=== PATIENT | male | born 1990 | race Two or more races ===

== ENCOUNTER 2021-03-29 14:31 | Emergency (ER) | payer MEDICAID, SELFPAY | END 2021-03-29 16:17 | disposition left against medical advice (07) | PROVIDERS: Emergency Provider Emergency Medicine | DX: M54.50 Low back pain, unspecified (principal) ==

== ENCOUNTER 2021-04-27 00:49 | Emergency (ER) | payer MEDICAID, SELFPAY ==
--- NOTE | ~2021-04-27 | CT_ITS ---
EXAMINATION: CT ABDOMEN AND PELVIS WITH CONTRAST CLINICAL INFORMATION: Right flank pain. History of intravenous drug use COMPARISON: 07/08/2018 TECHNIQUE: Multidetector volumetric images were obtained from the superior aspect of the liver through the pubic symphysis following administration 85 mL of Omnipaque 350 intravenous contrast. Sagittal and coronal reformatted images were obtained on the technologist's workstation. Oral contrast: No This CT examination was performed using dose optimization techniques as appropriate, variously including the following: *Automated exposure control *Adjustment of mA and/or kV according to patient size (this includes techniques or standardized protocols for targeted exams where dose is matched to indication/reason for exam; i.e. extremities or head) *Use of iterative reconstruction technique DLP: 318 mGy-cm FINDINGS: LUNG BASES: The visualized lung bases are unremarkable. LIVER, GALLBLADDER, AND BILIARY TREE: The liver is normal in size, shape, and attenuation. No focal hepatic lesion or biliary ductal dilatation is present. The gallbladder is unremarkable with no evidence of radiopaque gallstones, gallbladder wall thickening, or obvious pericholecystic inflammatory changes. PANCREAS: Unremarkable. SPLEEN: Unremarkable. ADRENAL GLANDS: Unremarkable. KIDNEYS AND URETERS: The kidneys are normal in size, shape, and attenuation. No hydronephrosis, hydroureter, or calculi seen. No perinephric stranding. BLADDER: Unremarkable. GASTROINTESTINAL TRACT: The small and large bowel are unremarkable. The appendix is unremarkable. ABDOMINAL WALL: No significant hernia is appreciated. LYMPH NODES: Normal. VASCULAR: Unremarkable. PELVIC VISCERA: Unremarkable. OSSEOUS STRUCTURES: Unremarkable. CT/CT abdomen pelvis w con IMPRESSION: No acute findings within the abdomen or pelvis. Normal exam.
[2021-04-27 01:03] VITALS: BP 117/68; PULSE 77; RESP 16; TEMP 36.1; O2SAT 97; BMI 21.2
--- NOTE | 2021-04-27 01:08 | ED_ITS ---
HPI - Back Pain/Injury General Chief Complaint: Back Pain/Injury Stated Complaint: back pain Time Seen by Provider: 04/27/21 01:03 Source: patient Mode of arrival: ambulatory Limitations: no limitations History of Present Illness HPI Narrative: Patient with history of IV drug use noticed low back pain after bending down 2 weeks ago radiating to the right leg no fever no chills no nausea no vomiting Related Data Allergies Allergy/AdvReac Type Severity Reaction Status Date / Time No Known Allergies Allergy Unverified 11/22/19 16:35 [No Known Allergies*] Review of Systems Review of Systems: Yes all other systems are reviewed and are negative [facility] Past Medical History Medical History Seizures Social History Social History Advance Directives: No Physical Exam Vital Signs: Vital Signs: Last Vital Signs Temp 97 F 04/27/21 01:03 Pulse 77 04/27/21 01:03 Resp 16 04/27/21 01:03 BP 117/68 04/27/21 01:03 Pulse Ox 97 04/27/21 01:03 BMI result Body Mass Index 21.2 Appearance: Alert. Oriented X3. No acute distress. Eyes: No pallor or icterus ENT: Pharynx normal. Oral Mucosa moist Neck: Normal inspection. Neck supple. CVS: Normal heart rate and rhythm. Pulses normal. Respiratory: No respiratory distress. Equal air entry bilateral, no wheezing/rales/rhonchi Abdomen: Soft and nontender. Bowel sounds are present, no mass palpable, no CVA tenderness Skin: Skin warm and dry. Normal skin color. Normal skin turgor. back: Diffuse right paraspinal tenderness L1-L2 no focal midline tenderness no skin change sensation over the sacrum intact Extremities: No lower extremity edema. No calf tenderness SLR positive right leg at 60 degrees Neuro: Oriented X 3. No motor deficit. No sensory deficit.No cerebellar signs , cranial nerves II-XII intact MDM - Back Pain/Injury MDM Narrative Medical decision making narrative: Patient with back pain with history of IVDA use clinically muscular pain with because of IVDA will check the CRP and sed rate WBC count is normal also will do the CT scan with IV contrast to rule out any mass or fluid collection/epidural abscess at this time no signs of radiculopathy Lab Data Attestation: I reviewed the patient's lab results. Result diagrams: 04/27/21 01:04/27/21 01: Labs: Lab Results 04/27/21 04/27/21 04/27/21 Range/Units 01: 01: 01:22 WBC 6.3 (4.8-10.8) X10*3/uL RBC 4.32 L (4.60-5.80) X10*6/uL Hgb 13.0 L (14.0-18.0) g/dl Hct 39.2 L (42.0-52.0) % MCV 90.7 (80.0-98.0) fL MCH 30.1 (27.0-33.0) pg MCHC 33.2 (31.0-36.0) g/dl RDW 12.5 (11.0-16.0) % Plt Count 258 (160-400) X10*3/uL MPV 9.1 L (9.4-12.4) fL Immature Gran % (Auto) 0.5 H (0.0-0.4) % Neut % (Auto) 58.7 (45-73) % Lymph % (Auto) 32.1 (20-40) % [place] % (Auto) 6.8 (2-11) % Eos % (Auto) 1.4 (0-4) % Baso % (Auto) 0.5 (0-2) % Lymph # (Auto) 2.0 (1.2-4.9) X10*3/uL [place] # (Auto) 0.4 (0.1-1.2) X10*3/uL Eos # (Auto) 0.1 (0.0-0.4) X10*3/uL Baso # (Auto) 0.0 (0.0-0.2) X10*3/uL Abs Immat Gran (auto) 0.03 (0.00-0.03) X10*3/uL Absolute Neuts (auto) 3.7 (2.0-8.3) x10*3/uL Absolute Nucleated RBC 0.000 (0.0-0.012) X10*3/uL Nucleated RBC % (auto) 0.0 (0.0-0.2) /100WBC Sodium (135-145) mmol/L Potassium (3.3-5.1) mmol/L Chloride (96-108) mmol/L Carbon Dioxide (22-29) mmol/L Anion Gap (12-20) BUN (9-16) mg/dL Creatinine (0.5-1.4) mg/dL Estim Creat Clear Calc Estimated GFR Random Glucose (60-115) mg/dL Lactic Acid 0.8 (0.5-2.0) mmol/L Calcium (8.4-10.2) mg/dL Total Bilirubin (0.0-1.0) mg/dL AST (5-37) U/L ALT (0-40) U/L Alkaline Phosphatase (39-117) U/L C-Reactive Protein (< or = 0.50) mg/dL Total Protein (6.5-8.0) g/dL Albumin (3.5-5.0) g/dL COVID-19 (GILDA) Positive A (Negative) COVID-19 Clin Com See Note 04/27/21 Range/Units 01:22 WBC (4.8-10.8) X10*3/uL RBC (4.60-5.80) X10*6/uL Hgb (14.0-18.0) g/dl Hct (42.0-52.0) % MCV (80.0-98.0) fL MCH (27.0-33.0) pg MCHC (31.0-36.0) g/dl RDW (11.0-16.0) % Plt Count (160-400) X10*3/uL MPV (9.4-12.4) fL Immature Gran % (Auto) (0.0-0.4) % Neut % (Auto) (45-73) % Lymph % (Auto) (20-40) % [place] % (Auto) (2-11) % Eos % (Auto) (0-4) % Baso % (Auto) (0-2) % Lymph # (Auto) (1.2-4.9) X10*3/uL [place] # (Auto) (0.1-1.2) X10*3/uL Eos # (Auto) (0.0-0.4) X10*3/uL Baso # (Auto) (0.0-0.2) X10*3/uL Abs Immat Gran (auto) (0.00-0.03) X10*3/uL Absolute Neuts (auto) (2.0-8.3) x10*3/uL Absolute Nucleated RBC (0.0-0.012) X10*3/uL Nucleated RBC % (auto) (0.0-0.2) /100WBC Sodium 134 L (135-145) mmol/L Potassium 4.4 (3.3-5.1) mmol/L Chloride 97 (96-108) mmol/L Carbon Dioxide 27 (22-29) mmol/L Anion Gap 14 (12-20) BUN 14 (9-16) mg/dL Creatinine 0.84 (0.5-1.4) mg/dL Estim Creat Clear Calc 103.5 Estimated GFR > 60 Random Glucose 96 (60-115) mg/dL Lactic Acid (0.5-2.0) mmol/L Calcium 9.7 (8.4-10.2) mg/dL Total Bilirubin 0.5 (0.0-1.0) mg/dL AST 68 H (5-37) U/L ALT 60 H (0-40) U/L Alkaline Phosphatase 84 (39-117) U/L C-Reactive Protein 0.86 H (< or = 0.50) mg/dL Total Protein 8.4 H (6.5-8.0) g/dL Albumin 3.8 (3.5-5.0) g/dL COVID-19 (GILDA) (Negative) COVID-19 Clin Com Discharge Plan Discharge Clinical Impression: Back pain Patient Disposition: Still a Patient
[2021-04-27] MEDS: Ketorolac Tromethamine 30 MG/ML VIAL IVPUSH (01:20)
[2021-04-27] MEDS: 0.9 % Sodium Chloride 1,000 ML 999 ML IV (01:21)
[2021-04-27 01:29] LABS: Basophils Percent Auto 0.5 % (0-2); Eosinophils Absolute Auto 0.1 X10*3/uL (0.0-0.4); Eosinophils Percent Auto 1.4 % (0-4); Hematocrit 39.2 % (42.0-52.0); Imm Gran Abs Auto 0.03 X10*3/uL (0.00-0.03); Imm Gran Pct Auto 0.5 % (0.0-0.4); Lymphocytes Percent Auto 32.1 % (20-40); MANUAL DIFF FLAG NO; Mean Corpuscular HGB Conc 33.2 g/dl (31.0-36.0); Mean Corpuscular Hemoglobin 30.1 pg (27.0-33.0); Mean Corpuscular Volume 90.7 fL (80.0-98.0); Mean Platelet Volume 9.1 fL (9.4-12.4); Monocytes Absolute Auto 0.4 X10*3/uL (0.1-1.2); Monocytes Percent Auto 6.8 % (2-11); Neutrophils Absolute Auto 3.7 x10*3/uL (2.0-8.3); Neutrophils Percent Auto 58.7 % (45-73); Platelet Count 258 X10*3/uL (160-400); Red Blood Count 4.32 X10*6/uL (4.60-5.80); Red Cell Distribution Width 12.5 % (11.0-16.0); White Blood Count 6.3 X10*3/uL (4.8-10.8)
--- NOTE | 2021-04-27 01:35 | PC.NURSE ---
pt to ED via EMS after having back pain x 2 weeks after playing with nephew. pt chg into gown, Dr. Spears at bedside for evaL. IV placed to LAC, labs drawn to lab. NS up and running w/o site intact. pt also medicated with toradol IV as per emar for pain.
[2021-04-27 01:40] LABS: Lactic Acid 0.8 mmol/L (0.5-2.0)
[2021-04-27 01:44] LABS: COVID-19 Test Positive (Negative)
[2021-04-27 01:45] LABS: Alanine Aminotransferase 60 U/L (0-40); Albumin Level 3.8 g/dL (3.5-5.0); Alkaline Phosphatase 84 U/L (39-117); Anion Gap 14 (12-20); Aspartate Amino Transferase 68 U/L (5-37); Bilirubin Total 0.5 mg/dL (0.0-1.0); Blood Urea Nitrogen 14 mg/dL (9-16); C Reactive Protein 0.86 mg/dL (< or = 0.50); Calcium 9.7 mg/dL (8.4-10.2); Carbon Dioxide 27 mmol/L (22-29); Chloride 97 mmol/L (96-108); Creatinine Clr Calc Pharmacy 103.5; Estimated Glomerular Filt Rate > 60; Glucose Random 96 mg/dL (60-115); Potassium 4.4 mmol/L (3.3-5.1); Sodium 134 mmol/L (135-145); Total Protein 8.4 g/dL (6.5-8.0)
[2021-04-27 02:01] LABS: Erythrocyte Sedimentation Rate 23 MM/HR (0-15)
[2021-04-27] MEDS: iohexoL 350 MG/ML 100 ML INFUS..BTL 85 ML IV (02:17)
[2021-04-27 03:04] VITALS: BP 119/78; PULSE 48; RESP 18; O2SAT 98
[2021-04-27 03:51] VITALS: BP 119/78; RESP 16
== END 2021-04-27 03:45 | disposition home or self-care (01) ==
PROVIDERS: Internal Medicine; Emergency Provider Student in an Organized Health Care Education/Training Program
DX: M54.50 Low back pain, unspecified (principal); Z20.822 Contact with and (suspected) exposure to COVID-19; Z79.899 Other long term (current) drug therapy
CPT/HCPCS: 36415; 74177; 80053; 83605; 85025; 85652; 86140; 87040; 87635; 96361; 96374; 99284; J1885; Q9967

== ENCOUNTER → 2021-12-23 09:44 | Outpatient (REF) | payer MEDICAID, SELFPAY ==
--- NOTE | 2021-12-23 10:00 | ECG_ITS ---
Test Reason : METHADONE FOR QT PROLONGATION Blood Pressure : / mmHG Vent. Rate : 066 BPM Atrial Rate : 066 BPM P-R Int : 146 ms QRS Dur : 088 ms QT Int : 422 ms P-R-T Axes : 065 082 061 degrees QTc Int : 442 ms Normal sinus rhythm Normal ECG When compared with ECG of 20-MAR-2019 07:25, Heart rate has increased Referred By: Ele Ortiz Electronically Signed By:KELI HARRINGTON MD
== END ==
LOC: HO.CARD 09:44
PROVIDERS: Visit Provider Family Medicine
DX: Z79.899 Other long term (current) drug therapy (principal)
CPT/HCPCS: 93005

== ENCOUNTER 2022-02-05 20:34 | Emergency (ER) | payer MEDICAID, SELFPAY ==
[2022-02-05 21:02] VITALS: BP 139/91; PULSE 108; RESP 18; TEMP 36.7; O2SAT 96; BMI 23.3
--- NOTE | 2022-02-05 21:19 | ED.GENADULT ---
HPI - General Adult General Chief complaint: Skin/Abscess/Foreign Body Stated complaint: lip ring removal stuck on bottom lip Time Seen by Provider: 02/05/22 21:18 Source: patient Mode of arrival: ambulatory Limitations: no limitations History of Present Illness HPI narrative: Patient is a 31 year old assigned male at with a history of hepatitis C presenting to the emergency department today with a lip ring stuck in his bottom lip. Patient states that he put a lip ring last night and now it is stuck and painful. Patient denies any dizziness, lightheadedness, abdominal pain, nausea, vomiting, fever, chills, blurry vision, double vision, loss of vision, chest pain, difficulty breathing, shortness of breath, back pain, night sweats, pain with urination, increased urinary frequency, increased urinary urgency, blood in his urine or stool, syncope or a near syncopal episode, recent trauma or falls, bowel incontinence, bladder incontinence, bowel retention, bladder retention, or any other complaints at this time. Onset (ago): hour(s) Location: mouth Radiation: non-radiation Severity: mild Severity scale (1-10): 2 Relieving factors: none Exacerbating factors: none Associated symptoms: denies other symptoms Treatments prior to arrival: none Related Data Previous Rx's Medication Instructions Recorded amoxicillin 875 mg-potassium 1 tab PO BID 10 days #20 tabs 02/05/22 clavulanate 125 mg tablet Allergies Allergy/AdvReac Type Severity Reaction Status Date / Time No Known Allergies Allergy Unverified 11/22/19 16:35 [No Known Allergies*] Review of Systems Constitutional: Constitutional: Reports no additional constitutional complaints, Denies chills, Denies fever(s) and Denies night sweats Eyes: Eyes: Reports no additional eye complaints, Denies blurry vision, Denies change in vision, Denies diplopia, Denies eye discharge, Denies loss of vision and Denies eye pain ENT: Denies dizziness and Reports lip swelling (lip ring stuck on bottom lip) Cardiovascular: Cardiovascular: Reports no additional cardiovascular complaints, Denies chest pain, Denies lightheadedness, Denies Loss of Consciousness and Denies dyspnea Respiratory: Respiratory: Reports no additional respiratory complaints and Denies dyspnea Gastrointestinal: Gastrointestinal: Reports no additional gastrointestinal complaints, Denies abdominal pain, Denies melena, Denies hematochezia, Denies change in bowel habits and Denies change in stool character Genitourinary: Genitourinary: Reports no additional male genitourinary complaints, Denies hematuria, Denies oliguria, Denies difficulty urinating, Denies dysuria, Denies urinary frequency, Denies urinary hesitancy, Denies urinary incontinence and Denies urinary urgency Musculoskeletal: Musculoskeletal: Reports no additional musculoskeletal complaints, Denies numbness and Denies tingling Neurologic: Denies dizziness, Denies loss of vision, Denies numbness and Denies tingling Psychiatric: Psychiatric: Reports no additional psychiatric complaints Endocrine: Endocrine: Reports no additional endocrine complaints Hematologic/Lymphatic: Hematologic/Lymphatic: Reports no additional hematologic/lymphatic complaints Allergic/Immunologic: Allergic/Immunologic: Reports no additional allergic/immunologic complaints and Reports lip swelling (lip ring stuck on bottom lip) [facility] Past Medical History Attestation statement: The following information was validated with the patient. Source: old records reviewed Medical History Seizures Social History Social History Advance Directives: No Physical Exam ED Vital Signs: Vital Signs - 24 hr 02/05/22 21:02 Temperature 98.1 F Pulse Rate 108 H Respiratory Rate 18 Blood Pressure 139/91 H Pulse Oximetry 96 Oxygen Delivery Method Room Air BMI result Body Mass Index 23.3 Const General: cooperative, no acute distress, alert and awake Nutritional Appearance: well nourished Orientation/consciousness: patient oriented x3 Limitations: no limitations [facility] Head: Yes normal to inspection and Yes atraumatic Ears: hearing grossly normal bilaterally and external ears normal General nose exam: Normal external nose present, no nasal discharge noted and no epistaxis Face and sinus: No abrasion, No laceration and Yes other (lip ring embedded in bottom right lip) Mouth: Normal oral and palatal mucosa present, no drooling and no muffled voice Eyes General: appearance normal, both eyes and all related structures Periorbital: periorbital findings normal Eyelids: Yes eyelids normal Conjunctivae: conjunctivae normal Pupils: Equal, round and reactive pupils present EOM: EOMs intact bilaterally Neck Neck: Yes normal visual inspection, Yes full ROM and Yes no lymphadenopathy Chest Chest palpation & inspection: normal inspection of the chest Resp Effort & Inspection: normal respiratory effort and able to speak in complete sentences Auscultation: clear to auscultation bilaterally Cardio Rate: regular rate Rhythm: regular rhythm GI Inspection: Yes normal to inspection Neuro General: patient oriented x3 and moves all extremities Cranial nerves: Yes Equal, round and reactive pupils present Cognition (Neuro): normal cognition Motor exam (neuro): 5/5 motor strength present throughout Sensory Exam: Normal double simultaneous stimulation for sensation Coordination: [id number] test normal Extrem General: Yes normal to inspection, Yes full ROM and Yes capillary refill normal Psych Appearance: grossly normal Mental Status: mental status grossly normal Affect: normal affect Attitude: cooperative Thought process: Normal thought process present Thought content: Normal thought content present Insight: Good insight present (Psych) Procedures Foreign Body Removal Time Out Performed: yes Site: other (lower lip) Description of foreign body: other (piercing) Sedation/Analgesia: none Technique: manual removal Confirmed by:: direct visualization Complications: none Post-procedure exam: awake, alert, normal BP, normal HR and normal O2 sat Medical Decision Making MDM Narrative Medical decision making narrative: Patient is a 31 year old assigned male at with a history of hepatitis C presenting to the emergency department today with an embedded lower lip ring. Patient's physical exam showed an embedded lower lip ring. I explained my physical exam findings to the patient. I answered all questions asked by the patient. Patient's lip ring was removed, per procedure note, without incident. I stressed the importance of the patient taking his medication as prescribed. I stressed the importance of the patient following up with his primary care provider. I stressed the importance of the patient returning to the emergency department immediately if his symptoms were to worsen or if he were to develop any dizziness, shortness of breath, difficulty breathing, chest pain, blurry vision, loss of vision, nausea, vomiting, abdominal pain, fever, chills, back pain, or any other complaints. Patient verbalized agreement and understanding with this treatment plan and discharge. Medical Records Medical records reviewed: Yes I reviewed the patient's medical records. Discharge Plan Discharge Clinical Impression: Foreign body in lip Patient Disposition: Home, Self-Care Additional Instructions: Take your antibiotics as prescribed. Follow up with your primary care provider. Return to the emergency department immediately if your symptoms worsen or if you develop any dizziness, shortness of breath, difficulty breathing, chest pain, blurry vision, loss of vision, nausea, vomiting, abdominal pain, fever, chills, back pain, or any other complaints. Prescriptions: New amoxicillin-pot clavulanate 875-125 mg tablet 1 tab PO BID 10 Days Qty: 20 0RF Referrals: [facility] [place] [facility] [place] [facility] [Provider Group] (Call to establish and follow up with a primary care provider. If you already have a primary care provider, please follow up with them. ) [facility] [place] [facility], Niyah [Provider Group] (Call to establish and follow up with a primary care provider. If you already have a primary care provider, please follow up with them. ) [facility] [place] [facility],Narciso [Provider Group] (Call to establish and follow up with a primary care provider. If you already have a primary care provider, please follow up with them. ) Print Language: Malian
== END 2022-02-05 21:29 | disposition home or self-care (01) ==
LOC: HO.ED 21:22
PROVIDERS: Emergency Provider Emergency Medicine Emergency Medical Services
DX: T18.0XXA Foreign body in mouth, initial encounter (principal); X58.XXXA Exposure to other specified factors, initial encounter; Y93.9 Activity, unspecified; Y92.9 Unspecified place or not applicable; Y99.9 Unspecified external cause status
CPT/HCPCS: 40804; 99282; 99283

== ENCOUNTER 2022-02-11 22:17 | Emergency (ER) | payer MEDICAID, SELFPAY ==
--- NOTE | ~2022-02-11 | XR_ITS ---
EXAMINATION: XR HAND, RIGHT CLINICAL INFORMATION: Laceration COMPARISON: None TECHNIQUE: PA, lateral, and oblique views of the right hand. FINDINGS: The bones and soft tissues are normal. No fracture. Alignment is anatomic. Joint spaces are maintained. No erosions or soft tissue calcifications. No radiopaque foreign object is visualized. There is a soft tissue defect along the palmar surface of the base of thumb likely corresponding to laceration. XR/XR hand RT min 3V IMPRESSION: Soft tissue defect along the palmar surface of the base of thumb likely corresponding to laceration. No radiopaque foreign object is visualized.
[2022-02-11 22:28] VITALS: BP 129/97; PULSE 100; RESP 20; TEMP 36.2; O2SAT 97; BMI 23.3
--- NOTE | 2022-02-11 22:59 | ED_ITS ---
HPI - Wound/Laceration General Chief Complaint: Wound/Laceration Stated Complaint: Lac on thumb Source: patient Mode of arrival: ambulatory Limitations: no limitations History of Present Illness HPI narrative: 31-year-old male presents with laceration to his right thumb. Patient states he was washing dishes and cut his thumb on a knife. He does not know when his last tetanus shot was updated, and reports to have hepatitis C that has been untreated. Onset (ago): hour(s) (Within the hour of arrival) Extremity Location: left: hand (thumb) Place: work Patient tetanus UTD: No Context: accidental Associated symptoms: pain Treatments prior to arrival: bandage Related Data Previous Rx's Medication Instructions Recorded amoxicillin 875 mg-potassium 1 tab PO BID 10 days #20 tabs 02/05/22 clavulanate 125 mg tablet Allergies Allergy/AdvReac Type Severity Reaction Status Date / Time No Known Allergies Allergy Verified 02/11/22 22:34 [No Known Allergies*] Review of Systems Review of Systems: Constitutional: No Fever, No Chills Cardiovascular: No Chest Pain, No SOB Respiratory: No Cough, No Dyspnea Musculoskeletal: positive left thumb pain Skin: Positive flap laceration to the left thumb Neuro: No Weakness, No Numbness, No Paresthesias, No Loss of Consciousness, No Dizziness, No Headache Yes all other systems are reviewed and are negative [facility] Past Medical History Attestation statement: The following information was validated with the patient. Source: old records reviewed Medical History Seizures Social History Social History Advance Directives: No Advance Directives Information Provided: Yes Physical Exam Vital Signs: Vital Signs: Last Vital Signs Temp 97.2 F 02/11/22 22:28 Pulse 100 02/11/22 22:28 Resp 20 02/11/22 22:28 BP 129/97 H 02/11/22 22:28 Pulse Ox 97 02/11/22 22:28 O2 Del Method 02/11/22 22:28 BMI result Body Mass Index 23.3 Appearance: Alert. Oriented X3. No acute distress. Eyes: Pupils equal, round and reactive to light. ENT: Pharynx normal. Neck: Normal inspection. Neck supple. CVS: Normal heart rate and rhythm. Pulses normal. Respiratory: No respiratory distress. Breath sounds normal. Abdomen: Soft and nontender. Skin: 2 cm flap laceration to the metacarpal joint. Extremities: Full flexion extension abduction and adduction to the thumb. No indication of tendon deficit. Brisk capillary refill. Equal pulses bilaterally. Neuro: No motor deficit. No sensory deficit. Cranial nerves 2-12 intact. Course Course Course Narrative: 31-year-old male presents with laceration to the left thumb at the metacarpal joint, laceration is deep and flap like. Does not involve muscle, or tendon. Patient does have full range of motion, unknown when his last Tdap updated. Will order x-ray to rule out foreign body, update Tdap vaccine. And laceration repair. Prepped and draped in sterile fashion. Refer to procedure note for full details. Patient tolerated procedure well. Continues with brisk capillary refill and full range of motion to the digit. Plan of care the discharge home with patient following up with were connection and or primary care for suture removal. Does understand that if he develops signs symptoms of infection that he must return for evaluation. Patient verbalized understanding of and agrees plan of care discharge home. Verbalized understanding of signs and symptoms indicating need for emergent intervention Medications Administered Discontinued Medications Generic Name Dose Route Start Last Admin Trade Name Freq PRN Reason Stop Dose Admin Diphtheria/Tetanus/Acell Pertussis 0.5 ml 02/11/22 22:59 02/11/22 23:54 Diphth,Pertus(Acell),Tet Adult 0.5 Ml Syringe IM 02/11/22 23:00 0.5 ml .ONCE ONE Administration Lidocaine HCl 2 ml 02/11/22 22:50 02/11/22 23:54 Lidocaine Hcl 2% 2 Ml Vial INFILTRATI 02/11/22 22:51 2 ml ONCE ONE Administration Lidocaine HCl 2 ml 02/11/22 22:51 02/11/22 23:54 Lidocaine Hcl 2% 2 Ml Vial INFILTRATI 02/11/22 22:52 2 ml ONCE ONE Administration Medical Decision Making Medical Decision Making Differential Diagnoses: Differential diagnosis (Laceration, foreign body, tendon laceration) Consideration of admission/observation: Consideration of Admission/Observation (Patient does not require admission for this injury) Discussion of test interpretation with radiology: Discussion of test interpretation with radiology (I would agree with radiology's interpretation of x-ray) EXAMINATION: XR HAND, RIGHT CLINICAL INFORMATION: Laceration? COMPARISON: None? TECHNIQUE: PA, lateral, and oblique views of the right hand. FINDINGS: The bones and soft tissues are normal. No fracture. Alignment is anatomic. Joint spaces are maintained. No erosions or soft tissue calcifications. No radiopaque foreign object is visualized. There is a soft tissue defect along the palmar surface of the base of thumb likely corresponding to laceration. XR/XR hand RT min 3V IMPRESSION: Soft tissue defect along the palmar surface of the base of thumb likely corresponding to laceration. No radiopaque foreign object is visualized. ? Tests considered but not performed: Tests Considered But Not Performed (CT scan, however patient does have full range of motion without tendon deficit. CT scan not indicated) Prescription medication was considered but ultimately not given after discussion with patient/family. (e.g., pain medication, antiviral, antibiotic): Prescriptions considered but not given I considered prescription management with: Pain Medication Additional Comments: Patient is able to obtain Tylenol and Motrin [id number]. Narcotics not indicated for this injury. Procedures Laceration Laceration 1: Site: hand (Right thumb) Side (If applicable): right Size (cm): 2 Description: flap Depth: simple, single layer Local Anesthetic: lidocaine 2% (5) Pre-repair: wound explored, irrigated extensively and deep structures intact Skin layer closed with: nylon Size (cm): 3-0 Number of sutures: 8 Technique: simple, interrupted Discharge Plan Discharge Clinical Impression: Laceration Patient Disposition: Home, Self-Care Instructions: Care For Your Stitches (ED), Finger Laceration (ED) Additional Instructions: You were evaluated for laceration to your right thumb. We placed 8 sutures. Please return in 10-14 days to have sutures removed. You may represent Urgent Care, primary care physician or emergency department for suture removal. If you notice any signs or symptoms indicating infection please return to the emergency department immediately. Thank you for choosing this emergency department for evaluation. Please follow-up with primary care physician as needed. Return to the emergency department for any new, concerning, or worsening symptoms. Prescriptions: No Action amoxicillin-pot clavulanate 875-125 mg tablet 1 tab PO BID 10 Days Qty: 20 0RF Interventions: ED Discharge Assessment Last Done: 02/12/22 00:06 Discharge Date/Time: 02/12/22 00:08
[2022-02-11] MEDS: Diphth,Pertus(ACell),Tet Adult 0.5 ML SYRINGE IM (23:54)
== END 2022-02-12 00:08 | disposition home or self-care (01) ==
PROVIDERS: Emergency Provider Internal Medicine
DX: S61.012A Laceration without foreign body of left thumb without damage to nail, initial encounter (principal); S61.011A Laceration without foreign body of right thumb without damage to nail, initial encounter; S60.511A Abrasion of right hand, initial encounter; W25.XXXA Contact with sharp glass, initial encounter; Y93.E9 Activity, other interior property and clothing maintenance; Y92.000 Kitchen of unspecified non-institutional (private) residence as the place of occurrence of the external cause; Y99.9 Unspecified external cause status
CPT/HCPCS: 12041; 73130; 90471; 90715; 99282; 99284

== ENCOUNTER 2022-03-07 01:16 | Emergency (ER) | payer MEDICAID, SELFPAY ==
[2022-03-07] VITALS (11 sets, daily range): BP systolic 99–138; BP diastolic 58–97; PULSE 55–89; RESP 7–26; TEMP 36.4–37.7; O2SAT 96–100; BMI 22.8
--- NOTE | ~2022-03-07 | XR_ITS ---
EXAMINATION: XR CHEST CLINICAL INFORMATION: Technique COMPARISON: 07/08/2018 TECHNIQUE: Frontal view of the chest was obtained. FINDINGS: No significant abnormality is noted involving the heart, lungs, mediastinum, bony thorax or soft tissues. XR/XR chest 1V IMPRESSION: Unremarkable examination.
--- NOTE | 2022-03-07 01:23 | ED_ITS ---
HPI - Overdose General Chief Complaint: ETOH/Substance Use <AGUSTÍN Gilliam - Last Filed: 03/07/22 01:42> Stated Complaint: ETOH INTOX,NARCAN BY [facility] PER EMS <AGUSTÍN Gilliam Last Filed: 03/07/22 01:42> Time Seen by Provider: 03/07/22 01:20 <AGUSTÍN Gilliam Last Filed: 03/07/22 01:42> Source: EMS <AGUSTÍN Gilliam Last Filed: 03/07/22 01:42> Mode of arrival: EMS <AGUSTÍN Gilliam Last Filed: 03/07/22 01:42> Limitations: altered mental status <AGUSTÍN Gilliam Last Filed: 03/07/22 01:42> History of Present Illness HPI Narrative: 31 yo male with history of polysubstance abuse and seizure disorder who presents to the ER for evaluation of alcohol intoxication and possible unintentional drug overdose. Per EMS they were called to a residence where the patient was found gargling with his eyes rolled. He was given 4 mg IN Narcan and had improvement in his mental status. He was able to say that he drank large amounts of alcohol this evening and denied all drug use. History is limited on arrival as patient is significantly altered and not cooperative with interview. He is groaning and rolling around on the stretcher, sneezing frequently. <AGUSTÍN Gilliam Last Filed: 03/07/22 01:42> MD complaint: accidental overdose and other (alcohol intoxication) <AGUSTÍN Gilliam Last Filed: 03/07/22 01:42> Onset (ago): minute(s) <AGUSTÍN Gilliam Last Filed: 03/07/22 01:42> Treatments Prior to Arrival: narcan <AGUSTÍN Gilliam Last Filed: 03/07/22 01:42> Related Data Home Medications: Previous Rx's Medication Instructions Recorded amoxicillin 875 mg-potassium 1 tab PO BID 10 days #20 tabs 02/05/22 clavulanate 125 mg tablet <AGUSTÍN Gilliam Last Filed: 03/07/22 01:42> Allergies/Adverse Reactions: Allergies Allergy/AdvReac Type Severity Reaction Status Date / Time No Known Allergies Allergy Verified 02/11/22 22:34 [No Known Allergies*] <AGUSTÍN Gilliam - Last Filed: 03/07/22 01:42> Review of Systems Review of Systems: Yes Unobtainable due to mental condition and Unobtainable due to mental status <AGUSTÍN Gilliam - Last Filed: 03/07/22 01:42> [facility] Past Medical History Medical History: Medical History Seizures <AGUSTÍN Gilliam - Last Filed: 03/07/22 01:42> Social History Social History: Social History Alcohol intake: current Use of substances other than those prescribed or required for medical reasons: Yes Substance Use Type: Unknown Advance Directives: No <AGUSTÍN Gilliam - Last Filed: 03/07/22 01:42> Physical Exam Vital Signs: Vital Signs: Last Vital Signs Temp 99.8 F 03/07/22 05:57 Pulse 66 03/07/22 05:57 Resp 7 L 03/07/22 04:12 BP 99/58 L 03/07/22 05:57 Pulse Ox 96 03/07/22 05:57 O2 Del Method 03/07/22 05:57 BMI result Body Mass Index 22.8 <AGUSTÍN Gilliam - Last Filed: 03/07/22 01:42> Vital Signs: Last Vital Signs Temp 99.8 F 03/07/22 05:57 Pulse 66 03/07/22 05:57 Resp 7 L 03/07/22 04:12 BP 99/58 L 03/07/22 05:57 Pulse Ox 96 03/07/22 05:57 O2 Del Method 03/07/22 05:57 BMI result Body Mass Index 22.8 <Ron Coley MD - Last Filed: 03/07/22 07:19> Appearance: male in his 30s, thin build, eyes closed, rolling around on the stretcher intermittently groaning Eyes: Pupils equal, round and reactive to light, pinpoint ENT: Pharynx normal. Thick oral secretions Neck: Normal inspection. Neck supple. CVS: Normal heart rate and rhythm. Pulses normal. Respiratory: Mild respiratory distress, RR mid 20s, +belly breathing. Lungs are clear throughout. no other accessory muscle use Abdomen: Soft and nontender. +BS x4 Skin: Skin warm and dry. Normal skin color. Normal skin turgor. No rashes. Extremities: No lower extremity edema. No evidence of track servin. Moving all 4 extremities. Neuro: Lethargic, groaning, not following simple commands. <AGUSTÍN Gilliam - Last Filed: 03/07/22 01:42> Course Course Course Narrative: 31-year-old male with history of polysubstance abuse presents to the ER for evaluation of alcohol intoxication and probable drug overdose. He did respond to Narcan on scene. He arrived to the ER altered, protecting his airway moving all 4 extremities. Hemodynamically stable with RR mid 20s w/ belly breathing. Prior U tox was reviewed, he was previously positive for opiates, amphetamines, cocaine, cannabinoids and alcohol. It appears he was also on phenytoin at some point. Per med review and pharmacy pickup he has not picked up any phenytoin in at least 2 years. EMS denies any postictal state on scene. They deny any seizure activity. Will check metabolic workup, U tox, alcohol level. Will closely monitor in the ER. <AGUSTÍN Gilliam - Last Filed: 03/07/22 01:42> 31-year-old male with history of polysubstance abuse presents to the ER for evaluation of alcohol intoxication and probable drug overdose. He did respond to Narcan on scene. He arrived to the ER altered, protecting his airway moving all 4 extremities. Hemodynamically stable with RR mid 20s w/ belly breathing. Prior U tox was reviewed, he was previously positive for opiates, amphetamines, cocaine, cannabinoids and alcohol. It appears he was also on phenytoin at some point. Per med review and pharmacy pickup he has not picked up any phenytoin in at least 2 years. EMS denies any postictal state on scene. They deny any seizure activity. Will check metabolic workup, U tox, alcohol level. Will closely monitor in the ER. 0250: Start physician observation: I assumed care of this patient from my colleague, physician wet process miller head assistant Sabine Ahn at 02:00 hours. Patient's laboratory evaluation was pending. CBC and CMP were unremarkable except for low bicarb of 21 venous pH was 7.47. Patient's AST and ALT were elevated 277 and 239. Alcohol level was elevated 362. CK was elevated 1906. I ordered 2 L of normal saline IV. The patient will be kept in the emergency department until he is sober: 0714: End physician observation: The patient is awake and alert, he does not remember passing out. He denied using any drugs and states that he only drank alcohol. He is currently awake and alert and does not appear to be in distress. He was able to drink fluid, a crackers and putting without any difficulty. The patient will be discharged home. <Ron Coley MD - Last Filed: 03/07/22 07:19> Reevaluation(s) Reevaluation #1: Called to the bedside for episode of unresponsiveness, only responded to deep sternal rub. Patient being placed on the monitor now. May require additional Narcan. Will sign out to Dr. Coley who will assume care. <AGUSTÍN Gilliam - Last Filed: 03/07/22 01:42> Time: 01:38 <AGUSTÍN Gilliam - Last Filed: 03/07/22 01:42> Medications Administered Discontinued Medications Generic Name Dose Route Start Last Admin Trade Name Freq PRN Reason Stop Dose Admin Lactated Ringer's 1,000 mls @ 999 mls/hr 03/07/22 01:45 03/07/22 03:03 Lr IV 03/07/22 02:45 Infused .Q1H1M RACHELLE Infusion Sodium Chloride 1,000 mls @ 999 mls/hr 03/07/22 02:49 03/07/22 04:36 Ns IV 03/07/22 03:49 Infused .Q1H1M STA Infusion Sodium Chloride 1,000 mls @ 999 mls/hr 03/07/22 02:50 03/07/22 04:36 Ns IV 03/07/22 03:50 Infused .Q1H1M STA Infusion <AGUSTÍN Gilliam - Last Filed: 03/07/22 01:42> Medications Administered Discontinued Medications Generic Name Dose Route Start Last Admin Trade Name Freq PRN Reason Stop Dose Admin Lactated Ringer's 1,000 mls @ 999 mls/hr 03/07/22 01:45 03/07/22 03:03 Lr IV 03/07/22 02:45 Infused .Q1H1M RACHELLE Infusion Sodium Chloride 1,000 mls @ 999 mls/hr 03/07/22 02:49 03/07/22 04:36 Ns IV 03/07/22 03:49 Infused .Q1H1M STA Infusion Sodium Chloride 1,000 mls @ 999 mls/hr 03/07/22 02:50 03/07/22 04:36 Ns IV 03/07/22 03:50 Infused .Q1H1M STA Infusion <Ron Coley MD - Last Filed: 03/07/22 07:19> Medical Decision Making Differential Diagnosis Differential Diagnoses: The differential diagnosis associated with the presentation includes <AGUSTÍN Gilliam - Last Filed: 03/07/22 01:42> Alcohol intoxication, polysubstance abuse, heroin overdose, seizure, electrolyte abnormality, rhabdomyolysis, and intentional versus unintentional overdose, polypharmacy <AGUSTÍN Gilliam - Last Filed: 03/07/22 01:42> Lab Data Result Diagrams: : 03/07/22 01:45 03/07/22 01:45 <AGUSTÍN Gilliam - Last Filed: 03/07/22 01:42> Labs: Lab Results 03/07/22 03/07/22 03/07/22 Range/Units 01:45 01:45 01:48 WBC 10.0 (4.8-10.8) X10*3/uL RBC 4.70 (4.60-5.80) X10*6/uL Hgb 14.9 (14.0-18.0) g/dl Hct 43.6 (42.0-52.0) % MCV 92.8 (80.0-98.0) fL MCH 31.7 (27.0-33.0) pg MCHC 34.2 (31.0-36.0) g/dl RDW 12.1 (11.0-16.0) % Plt Count 321 (160-400) X10*3/uL MPV 9.4 (9.4-12.4) fL Immature Gran % (Auto) 0.7 H (0.0-0.4) % Neut % (Auto) 25.0 L (45-73) % Lymph % (Auto) 66.8 H (20-40) % [place] % (Auto) 5.4 (2-11) % Eos % (Auto) 1.1 (0-4) % Baso % (Auto) 1.0 (0-2) % Lymph # (Auto) 6.7 H (1.2-4.9) X10*3/uL [place] # (Auto) 0.5 (0.1-1.2) X10*3/uL Eos # (Auto) 0.1 (0.0-0.4) X10*3/uL Baso # (Auto) 0.1 (0.0-0.2) X10*3/uL Abs Immat Gran (auto) 0.07 H (0.00-0.03) X10*3/uL Absolute Neuts (auto) 2.5 (2.0-8.3) x10*3/uL Absolute Nucleated RBC 0.000 (0.0-0.012) X10*3/uL Nucleated RBC % (auto) 0.0 (0.0-0.2) /100WBC Smear Tech's Comments VERIFIED VBG pH 7.47 H (7.32-7.43) VBG pCO2 25 mmHg VBG pO2 144 mmHg VBG HCO3 18 L (22-26) mmol/L VBG O2 Saturation 99.0 % VBG Base Excess -2.7 mmol/L Sodium 139 (135-145) mmol/L Potassium 4.0 (3.3-5.1) mmol/L Chloride 101 (96-108) mmol/L Carbon Dioxide 21 L (22-29) mmol/L Anion Gap 21 H (12-20) BUN 12 (9-16) mg/dL Creatinine 0.86 (0.5-1.4) mg/dL Estim Creat Clear Calc 118.1 Estimated GFR > 60 Random Glucose 75 (60-115) mg/dL Calcium 10.2 (8.4-10.2) mg/dL Magnesium 2.4 (1.6-2.6) mg/dL Total Bilirubin 0.6 (0.0-1.0) mg/dL Direct Bilirubin 0.2 (0.0-0.5) mg/dL AST 277 H (5-37) U/L ALT 239 H (0-40) U/L Alkaline Phosphatase 107 (39-117) U/L Total Creatine Kinase 1906 H (38-174) U/L Total Protein 10.0 H (6.5-8.0) g/dL Albumin 4.5 (3.5-5.0) g/dL Ethyl Alcohol 362 H* mg/dL <AGUSTÍN Gilliam - Last Filed: 03/07/22 01:42> Lab Results 03/07/22 03/07/22 03/07/22 Range/Units 01:45 01:45 01:48 WBC 10.0 (4.8-10.8) X10*3/uL RBC 4.70 (4.60-5.80) X10*6/uL Hgb 14.9 (14.0-18.0) g/dl Hct 43.6 (42.0-52.0) % MCV 92.8 (80.0-98.0) fL MCH 31.7 (27.0-33.0) pg MCHC 34.2 (31.0-36.0) g/dl RDW 12.1 (11.0-16.0) % Plt Count 321 (160-400) X10*3/uL MPV 9.4 (9.4-12.4) fL Immature Gran % (Auto) 0.7 H (0.0-0.4) % Neut % (Auto) 25.0 L (45-73) % Lymph % (Auto) 66.8 H (20-40) % [place] % (Auto) 5.4 (2-11) % Eos % (Auto) 1.1 (0-4) % Baso % (Auto) 1.0 (0-2) % Lymph # (Auto) 6.7 H (1.2-4.9) X10*3/uL [place] # (Auto) 0.5 (0.1-1.2) X10*3/uL Eos # (Auto) 0.1 (0.0-0.4) X10*3/uL Baso # (Auto) 0.1 (0.0-0.2) X10*3/uL Abs Immat Gran (auto) 0.07 H (0.00-0.03) X10*3/uL Absolute Neuts (auto) 2.5 (2.0-8.3) x10*3/uL Absolute Nucleated RBC 0.000 (0.0-0.012) X10*3/uL Nucleated RBC % (auto) 0.0 (0.0-0.2) /100WBC Smear Tech's Comments VERIFIED VBG pH 7.47 H (7.32-7.43) VBG pCO2 25 mmHg VBG pO2 144 mmHg VBG HCO3 18 L (22-26) mmol/L VBG O2 Saturation 99.0 % VBG Base Excess -2.7 mmol/L Sodium 139 (135-145) mmol/L Potassium 4.0 (3.3-5.1) mmol/L Chloride 101 (96-108) mmol/L Carbon Dioxide 21 L (22-29) mmol/L Anion Gap 21 H (12-20) BUN 12 (9-16) mg/dL Creatinine 0.86 (0.5-1.4) mg/dL Estim Creat Clear Calc 118.1 Estimated GFR > 60 Random Glucose 75 (60-115) mg/dL Calcium 10.2 (8.4-10.2) mg/dL Magnesium 2.4 (1.6-2.6) mg/dL Total Bilirubin 0.6 (0.0-1.0) mg/dL Direct Bilirubin 0.2 (0.0-0.5) mg/dL AST 277 H (5-37) U/L ALT 239 H (0-40) U/L Alkaline Phosphatase 107 (39-117) U/L Total Creatine Kinase 1906 H (38-174) U/L Total Protein 10.0 H (6.5-8.0) g/dL Albumin 4.5 (3.5-5.0) g/dL Ethyl Alcohol 362 H* mg/dL <Ron Coley MD - Last Filed: 03/07/22 07:19> Independent Historian Clinical information obtained from an independent historian. History obtained from or confirmed by: EMS <AGUSTÍN Gilliam - Last Filed: 03/07/22 01:42> External Record Review External record reviewed: Prior outpatient labs <AGUSTÍN Gilliam - Last Filed: 03/07/22 01:42> Discharge Plan Discharge Clinical Impression: Drug overdose, Alcohol intoxication <AGUSTÍN Gilliam - Last Filed: 03/07/22 01:42> Patient Disposition: Home, Self-Care <AGUSTÍN Gilliam - Last Filed: 03/07/22 01:42> Instructions: Alcohol Intoxication (ED) <AGUSTÍN Gilliam - Last Filed: 03/07/22 01:42> Additional Instructions: You passed out this morning and the paramedics that count you gave you intranasal Narcan and the thought that you woke up after receiving this medication We did not do would drug screen on you today. Your blood work was unremarkable pain Your alcohol level however was elevated at 362. This is 5-6 times above the legal limit of alcohol intoxication which is 80. Drinking a large amount of strong alcohol over short period of time these to sudden rise in your blood alcohol level and this can cause you to pass out, stop breathing and from alcohol poisoning. Follow-up with your doctor in 2 days. Please return to the emergency department if your symptoms get worse or if you d evelop any symptoms that are concerning to you. Since you did respond to intranasal Narcan. I am discharging you with intranasal Narcan. Please see the instructions below: If you are going to use any street drugs, you should make sure that there is a sober person with you that is not using drugs and that this person can administer intranasal Narcan in the event that you stop breathing. <AGUSTÍN Gilliam - Last Filed: 03/07/22 01:42> Prescriptions: No Action amoxicillin-pot clavulanate 875-125 mg tablet 1 tab PO BID 10 Days Qty: 20 0RF <AGUSTÍN Gilliam - Last Filed: 03/07/22 01:42> Interventions: [place]-Suicide Risk Severity Scale Last Done: 03/07/22 01:33 <AGUSTÍN Gilliam - Last Filed: 03/07/22 01:42>
[2022-03-07] MEDS: Lactated Ringers 1,000 ML 999 ML IV (01:50)
[2022-03-07 01:53] LABS: Venous Blood Gas Refer to POC result
[2022-03-07 01:54] LABS: VBG Base Excess -2.7 mmol/L; VBG HCO3 18 mmol/L (22-26); VBG pCO2 25 mmHg; VBG pH 7.47 (7.32-7.43); VBG pO2 144 mmHg
[2022-03-07 01:55] LABS: Basophils Absolute Auto 0.1 X10*3/uL (0.0-0.2); Eosinophils Absolute Auto 0.1 X10*3/uL (0.0-0.4); Eosinophils Percent Auto 1.1 % (0-4); Hematocrit 43.6 % (42.0-52.0); Hemoglobin 14.9 g/dl (14.0-18.0); Imm Gran Abs Auto 0.07 X10*3/uL (0.00-0.03); Imm Gran Pct Auto 0.7 % (0.0-0.4); Lymphocytes Percent Auto 66.8 % (20-40); MANUAL DIFF FLAG SCAN; Mean Corpuscular HGB Conc 34.2 g/dl (31.0-36.0); Mean Corpuscular Hemoglobin 31.7 pg (27.0-33.0); Mean Corpuscular Volume 92.8 fL (80.0-98.0); Mean Platelet Volume 9.4 fL (9.4-12.4); Monocytes Absolute Auto 0.5 X10*3/uL (0.1-1.2); Monocytes Percent Auto 5.4 % (2-11); Neutrophils Absolute Auto 2.5 x10*3/uL (2.0-8.3); Platelet Count 321 X10*3/uL (160-400); Red Cell Distribution Width 12.1 % (11.0-16.0); SCAN SMEAR FLAG 1
[2022-03-07 02:15] LABS: Alanine Aminotransferase 239 U/L (0-40); Albumin Level 4.5 g/dL (3.5-5.0); Alkaline Phosphatase 107 U/L (39-117); Anion Gap 21 (12-20); Aspartate Amino Transferase 277 U/L (5-37); Bilirubin Direct 0.2 mg/dL (0.0-0.5); Bilirubin Total 0.6 mg/dL (0.0-1.0); Blood Urea Nitrogen 12 mg/dL (9-16); Calcium 10.2 mg/dL (8.4-10.2); Carbon Dioxide 21 mmol/L (22-29); Chloride 101 mmol/L (96-108); Creatinine Clr Calc Pharmacy 118.1; Estimated Glomerular Filt Rate > 60; Ethanol 362 mg/dL; Glucose Random 75 mg/dL (60-115); Magnesium 2.4 mg/dL (1.6-2.6); Sodium 139 mmol/L (135-145)
[2022-03-07 02:40] LABS: Lymphocytes Absolute Auto 6.7 X10*3/uL (1.2-4.9); SLIDE REVIEW VERIFIED
[2022-03-07] MEDS: 0.9 % Sodium Chloride 1,000 ML 999 ML IV ×2 (03:09)
--- NOTE | 2022-03-07 04:54 | PC.NURSE ---
Pt up and walking to the bathroom independently
[2022-03-07] MEDS: Naloxone HCl Nasal TAKE HOME 4 MG SPRAY NOSTRILALT (07:32)
== END 2022-03-07 07:33 | disposition home or self-care (01) ==
PROVIDERS: Physician Assistant; Emergency Provider Emergency Medicine Emergency Medical Services
DX: F10.129 Alcohol abuse with intoxication, unspecified (principal); Y90.8 Blood alcohol level of 240 mg/100 ml or more; F11.10 Opioid abuse, uncomplicated; Z71.41 Alcohol abuse counseling and surveillance of alcoholic; Z79.899 Other long term (current) drug therapy
CPT/HCPCS: 36415; 71045; 80048; 80076; 82077; 82550; 82803; 83735; 85025; 96374; 99285

== ENCOUNTER 2022-09-27 18:57 | Emergency (ER) | payer MEDICAID, SELFPAY | END 2022-09-27 21:40 | disposition left against medical advice (07) | LOC: HO.ED 21:37 | PROVIDERS: Emergency Provider Emergency Medicine | DX: J02.9 Acute pharyngitis, unspecified (principal) ==

== ENCOUNTER 2023-02-07 08:50 | Emergency (ER) | payer MEDICAID, SELFPAY ==
[2023-02-07 09:00] VITALS: BP 118/88; PULSE 54; O2SAT 97
[2023-02-07 09:09] VITALS: BP 118/80; PULSE 53; RESP 16; TEMP 37; O2SAT 98; BMI 21.0
== END 2023-02-07 12:18 | disposition left against medical advice (07) ==
PROVIDERS: Emergency Provider Emergency Medicine
DX: F11.23 Opioid dependence with withdrawal (principal)
CPT/HCPCS: 99281

== ENCOUNTER 2024-01-10 16:05 | Emergency (ER) | payer MEDICAID, SELFPAY | END 2024-01-10 16:49 | disposition left against medical advice (07) | PROVIDERS: Emergency Provider Emergency Medicine | DX: H57.12 Ocular pain, left eye (principal) ==

== ENCOUNTER 2024-01-10 19:33 | Emergency (ER) | payer MEDICAID, SELFPAY ==
[2024-01-10 19:46] VITALS: BP 132/87; BP 159/95; PULSE 75; PULSE 80; RESP 18; TEMP 36.7; O2SAT 96; O2SAT 99; BMI 23.4
[2024-01-10 20:00] VITALS: BP 132/87; PULSE 80; RESP 18; TEMP 36.7; O2SAT 96
--- NOTE | 2024-01-10 20:16 | MHC.EDTECH ---
Visual acuity done. SAMY Padilla aware that Pt stated he could only see the E on the snellen chart and even that is very blurry to him.
--- NOTE | 2024-01-10 20:42 | PC.NURSE ---
Spoke with MD regarding poor visual acuity. Relayed to Doctor from patient that he does sleep in the sand and is worried he has sand in his eye.
--- NOTE | 2024-01-10 23:20 | ED_ITS ---
HPI - Eye Problem General Chief complaint: Eye Problems Stated complaint: etoh, cocaine use Time Seen by Provider: 01/10/24 23:10 Source: patient Mode of arrival: ambulatory Limitations: no limitations History of Present Illness ED Provider: Dr. Yanely Crepso HPI Narrative: Patient comes to the emergency room complaining of left eye pain. Patient states that over 24 hours ago, he was helping a friend, they were sending materials and there was a lot of dust. Since then, patient has a foreign body sensation in the left eye. Patient denies any visual changes. Related Data Previous Rx's ?Medication ?Instructions ?Recorded amoxicillin 875 mg-potassium 1 tab PO BID 10 days #20 tabs 02/05/22 clavulanate 125 mg tablet erythromycin 5 mg/gram (0.5 %) eye 1 appl ophthalmic-Left DAILY #3.5 01/10/24 ointment grams ketorolac 10 mg tablet 10 mg PO Q8H PRN pain #10 tabs 01/10/24 Allergies Allergy/AdvReac Type Severity Reaction Status Date / Time No Known Allergies Allergy Verified 01/10/24 19:53 [No Known Allergies*] Review of Systems Review of Systems: Constitutional : No Weight loss, No Fever, No Chills, No Night Sweats, No Fatigue, No Malaise ENT/Mouth : No Hearing loss, No Ear Pain, No Nasal Congestion, No Sinus Pain, No Hoarseness, No sore throat, No Rhinorrhea, No Swallowing Difficulty Eyes: Complaining of left eye pain, redness, foreign body sensation, no visual abnormality Cardiovascular : No Chest Pain, No SOB, No Dyspnea on Exertion, No Orthopnea, No Edema, No Palpitations Respiratory : No Cough, No Sputum, No Wheezing, No Smoke Exposure, No Dyspnea Gastrointestinal : No Nausea, No Vomiting, No Diarrhea, No Constipation, No abdominal Pain, No Hematochezia, No Melena Genitourinary : no irregular bleeding, No Dysuria, No Urinary Frequency, No Hematuria, No Urinary Incontinence, No Urgency, No Flank Pain, No Urinary Flow Changes, No Hesitancy Musculoskeletal : No joint pain, No Myalgias, No Joint Swelling Skin : No Skin Lesions, No rash Neuro : No Weakness, No Numbness, No Paresthesias, No Loss of Consciousness, No Dizziness, No Headache Psych : No Anxiety/Panic, No Depression, No SI/HI/AH/VH, admits to alcohol and polysubstance abuse. Heme/Lymph: No Bruising, No Bleeding,No Lymphadenopathy Endocrine : No Polyuria, No Polydipsia, No Temperature Intolerance [facility] Past Medical History Medical History Seizures Social History Social History Alcohol intake: current Smoked in Last 30 Days: Yes Substance Use Type: Crack/Cocaine Substance Use Frequency: Chronic Longstanding Last Used Substance: Just Prior to Admission Advance Directives: No Advance Directives Information Provided: No Do you have a plan to hurt others: No Plan Physical Exam Vital Signs: Vital Signs: Last Vital Signs Temp 98.1 F 01/10/24 20:00 Pulse 80 01/10/24 20:00 Resp 18 01/10/24 20:00 BP 132/87 01/10/24 20:00 Pulse Ox 96 01/10/24 20:00 O2 Del Method Room Air 01/10/24 20:00 BMI result Body Mass Index 23.4 Const: Other: Appearance: Alert. Oriented X3. No acute distress. Eyes: Left eyes erythematous, under Wood's lamp and fluorescein stain, patient has a least 4 impacted particles in the cornea. Negative Dalila sign, eye pressure was difficult to obtain due to instrumentation. However, when I pressure was obtained on the left eye, 17 mmHg. ENT: Pharynx normal. Neck: Normal inspection. Neck supple. No lymph nodes noted. No crepitus CVS: Normal heart rate and rhythm. Pulses normal. Normal S1 and S2 Respiratory: No respiratory distress. Breath sounds normal. No Wheezing. No rales Abdomen: Soft and nontender. No rigidity. No distention. Skin: Skin warm and dry. Normal skin color. Normal skin turgor. Extremities: No lower extremity edema. No Lacerations. No Rash Neuro: Oriented X 3. No motor deficit. No sensory deficit. Moving all extremities. No slurred speech. CN 2 through 12 grossly intact Psych: calm, cooperative, normal affect Medical Decision Making Medical Decision Making MDM Narrative: It has been over 24 hours since patient has the foreign bodies in the cornea of the left eye. Patient was given erythromycin ointment. Patient will follow-up with ophthalmology tomorrow. -patient was given IM Toradol. Differential Diagnosis Differential Diagnoses: The differential diagnosis associated with the presentation includes (Foreign body in eye, corneal abrasion) Discharge Plan Discharge Clinical Impression: Corneal abrasion, Foreign body in eye Patient Disposition: Home, Self-Care Instructions: Eye Foreign Body (ED) Additional Instructions: Please follow-up with ophthalmology tomorrow and with your primary care physician tomorrow. If you have any worsening or new symptoms, please return to the emergency room or call 911 Prescriptions: New erythromycin 5 mg/gram (0.5 %) ointment 1 appl ophthalmic-Left DAILY Qty: 3.5 0RF ketorolac 10 mg tablet 10 mg PO Q8H PRN (Reason: pain) Qty: 10 0RF Rx Instructions: maximum total duration of 5 days from all oral, intranasal, or parenteral formulations. Do not use this medication with NSAIDs No Action amoxicillin-pot clavulanate 875-125 mg tablet 1 tab PO BID 10 Days Qty: 20 0RF Referrals: Everett Hagan [Physician] - 01/11/24 Print Language: Bulgarian
[2024-01-10] MEDS: Tetracaine HCl 0.5% Oph Sol 5 ML DROPS 1 DROP EYE-LEFT (23:27)
[2024-01-10] MEDS: Fluorescein Sodium STRIP 1 STRIP EYE-LEFT (23:27)
[2024-01-10] MEDS: Erythromycin Base 0.5% Oph Oin 1 GM TUBE 1 CM EYE-LEFT (23:36)
[2024-01-11] MEDS: Ketorolac Tromethamine 60 MG/2 ML VIAL IM (00:04)
[2024-01-11 00:06] VITALS: BP 111/60; PULSE 82; RESP 17; TEMP 36.6; O2SAT 94
[2024-01-11 00:15] VITALS: BP 111/60; PULSE 82; RESP 17; TEMP 36.6; O2SAT 94
== END 2024-01-11 00:26 | disposition home or self-care (01) ==
PROVIDERS: Emergency Provider Emergency Medicine
DX: S05.02XA Injury of conjunctiva and corneal abrasion without foreign body, left eye, initial encounter (principal); H57.12 Ocular pain, left eye; F14.10 Cocaine abuse, uncomplicated; F10.10 Alcohol abuse, uncomplicated; Y90.9 Presence of alcohol in blood, level not specified; X58.XXXA Exposure to other specified factors, initial encounter; Y93.89 Activity, other specified; Y92.89 Other specified places as the place of occurrence of the external cause; Y99.8 Other external cause status
CPT/HCPCS: 96372; 99284; J1885

== ENCOUNTER 2024-02-26 22:07 | Emergency (ER) | payer MEDICAID, SELFPAY ==
--- NOTE | 2024-02-26 | ECG_ITS ---
Test Reason : CHEST PAIN Blood Pressure : / mmHG Vent. Rate : 102 BPM Atrial Rate : 102 BPM P-R Int : 132 ms QRS Dur : 088 ms QT Int : 346 ms P-R-T Axes : 082 086 025 degrees QTc Int : 450 ms Sinus tachycardia Otherwise normal ECG When compared with ECG of 23-DEC-2021 09:57, Vent. rate has increased BY 36 BPM T wave inversion now evident in Inferior leads Referred By: Generic ED Physician Electronically Signed By:Bhargav Dupree
--- NOTE | ~2024-02-26 | XR_ITS ---
EXAMINATION: XR CHEST CLINICAL INFORMATION: chest pain COMPARISON: 10/12/2023 TECHNIQUE: Frontal view of the chest was obtained. FINDINGS: No significant abnormality is noted involving the heart, lungs, mediastinum, bony thorax or soft tissues. XR/XR chest 1V IMPRESSION: Unremarkable examination. Electronically signed by: Poly Wright MD 02/26/2024 10:57 PM [facility]
[2024-02-26 22:16] VITALS: BP 120/71; PULSE 97; RESP 18; TEMP 36.9; O2SAT 97; BMI 19.9
[2024-02-26 22:39] LABS: MANUAL DIFF FLAG NO
[2024-02-26 22:41] LABS: Basophils Percent Auto 0.6 % (0-2); Eosinophils Absolute Auto 0.1 X10*3/uL (0.0-0.4); Eosinophils Percent Auto 2.2 % (0-4); Hematocrit 37.7 % (42.0-52.0); Hemoglobin 12.6 g/dl (14.0-18.0); Imm Gran Abs Auto 0.02 X10*3/uL (0.00-0.03); Imm Gran Pct Auto 0.6 % (0.0-0.4); Lymphocytes Absolute Auto 1.9 X10*3/uL (1.2-4.9); Lymphocytes Percent Auto 52.9 % (20-40); Mean Corpuscular HGB Conc 33.4 g/dl (31.0-36.0); Mean Corpuscular Hemoglobin 32.8 pg (27.0-33.0); Mean Corpuscular Volume 98.2 fL (80.0-98.0); Mean Platelet Volume 9.2 fL (9.4-12.4); Monocytes Absolute Auto 0.4 X10*3/uL (0.1-1.2); Monocytes Percent Auto 11.4 % (2-11); Neutrophils Absolute Auto 1.2 x10*3/uL (2.0-8.3); Neutrophils Percent Auto 32.3 % (45-73); Platelet Count 219 X10*3/uL (160-400); Red Blood Count 3.84 X10*6/uL (4.60-5.80); Red Cell Distribution Width 12.2 % (11.0-16.0); White Blood Count 3.6 X10*3/uL (4.8-10.8)
--- NOTE | 2024-02-26 22:42 | MHC.EDTECH ---
Pt brought in from and placed on flux core welder.
[2024-02-26 22:55] LABS: Alanine Aminotransferase 55 U/L (0-40); Albumin Level 3.8 g/dL (3.5-5.0); Alkaline Phosphatase 92 U/L (39-117); Anion Gap 15 (12-20); Aspartate Amino Transferase 79 U/L (5-37); Bilirubin Total 0.2 mg/dL (0.0-1.0); Blood Urea Nitrogen 11 mg/dL (9-16); Calcium 8.2 mg/dL (8.4-10.2); Carbon Dioxide 29 mmol/L (22-29); Chloride 103 mmol/L (96-108); Creatinine Clr Calc Pharmacy 119.6; Estimated Glomerular Filt Rate > 60; Glucose Random 111 mg/dL (60-115); Potassium 3.6 mmol/L (3.3-5.1); Sodium 143 mmol/L (135-145); Total Protein 7.6 g/dL (6.5-8.0)
[2024-02-26 23:01] LABS: Troponin-I High Sensitivity < 2.7 ng/L (<3.5-35.0)
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
[2024-02-27 00:56] VITALS: BP 129/70; PULSE 85; RESP 12; TEMP 36.7; O2SAT 97
[2024-02-27] MEDS: methADONE HCl 20 MG/2 ML ORAL.CONC 30 MG PO (01:09)
[2024-02-27 01:27] VITALS: BP 129/70; PULSE 85; RESP 12; TEMP 36.7; O2SAT 97
== END 2024-02-27 01:28 | disposition home or self-care (01) ==
PROVIDERS: Emergency Provider Emergency Medicine
DX: R07.89 Other chest pain (principal); R00.0 Tachycardia, unspecified; F11.23 Opioid dependence with withdrawal; Z79.899 Other long term (current) drug therapy
CPT/HCPCS: 36415; 71045; 80053; 84484; 85025; 93005; 99284

== ENCOUNTER → 2024-02-26 22:18 | Outpatient (BNV) | payer MEDICAID, SELFPAY | PROVIDERS: Emergency Provider Emergency Medicine; Visit Provider Internal Medicine Cardiovascular Disease | DX: R00.0 Tachycardia, unspecified (principal) | CPT/HCPCS: 93010 ==

== ENCOUNTER 2024-09-05 13:07 | Emergency (ER) | payer MEDICAID, SELFPAY ==
[2024-09-05 13:22] VITALS: BP 117/88; PULSE 114; RESP 18; TEMP 36.4; O2SAT 94; BMI 19.3
--- NOTE | 2024-09-05 13:24 | ED.GENADULT ---
HPI - General Adult General Chief complaint: Urogenital-Male Stated complaint: wants to check private area swollen Related Data Home Medications ?Medication ?Instructions ?Recorded ?Confirmed methadone 10 mg/mL oral concentrate 185 mg PO DAILY 09/06/24 09/06/24 Previous Rx's ?Medication ?Instructions ?Recorded cefuroxime axetil 500 mg tablet 500 mg PO BID 12 days #24 tabs 09/08/24 doxycycline hyclate 100 mg tablet 100 mg PO BID 19 days #38 tabs 09/08/24 oxycodone 5 mg tablet 5 mg PO Q6H PRN Pain, 09/08/24 Moderate(Pain Scale 4-6) #12 tabs Allergies Allergy/AdvReac Type Severity Reaction Status Date / Time No Known Allergies (No Known Allergy Verified 09/05/24 20:24 Allergies*) PMFSH Past Medical History Medical History Seizures Social History Social History Household Members: Other Housing: Homeless Alcohol intake: unknown Patient Tobacco Use Status: Current everyday Tobacco user Substance Use Type: Other service: No Physical Exam ED Vital Signs: BMI result Body Mass Index 19.3 Course Course Course Narrative: RME, this is a rapid medical exam performed by Fernando Ramirez please refer to primary provider for complete H&P- 34-year-old male presents for evaluation of left-sided testicular pain and swelling. Symptoms started a few days ago. He reports he had a small lump. Plan for labs urinalysis and an ultrasound of the scrotum Discharge Plan Discharge Clinical Impression: Acute pain in scrotum Patient Disposition: Left W/O Completing Treatment Prescriptions: No Action methadone 10 mg/mL Concentrate 185 mg PO DAILY cefuroxime axetil 500 mg tablet 500 mg PO BID 12 Days Qty: 24 0RF doxycycline hyclate 100 mg tablet 100 mg PO BID 19 Days Qty: 38 0RF oxycodone 5 mg Tablet 5 mg PO Q6H PRN (Reason: Pain, Moderate(Pain Scale 4-6)) Qty: 12 0RF Rx Instructions: Partial Fill upon patient request. Discharge Date/Time: 09/05/24 15:01
--- OUTSIDE RECORDS SUMMARY | 2024-09-05 15:10 | XMS_ITS | Clinical Summary ---
Author Organization [facility] Address [address] [place] [address] Care Team Providers Care Slot Floor Supervisor Name Role Phone Unavailable Primary Care Provider Unavailabl e Social History Tobacco Use Types Packs/Day Years Used Date Smoking Tobacco: Never Assessed Sex and Gender Information Value Date Recorded Sex Assigned at Not on file Legal Sex Male 2:17 AM EST Gender Identity Not on file Sexual Orientation Not on file Plan of Treatment Health Maintenance Due Date Last Done Comments DTaP,Tdap,and Td Vaccines (1 - Tdap) 07/23/2007 Hepatitis B Vaccines (1 of 3 - 19+ 3-dose series) 07/23/2007 COVID-19 Vaccine (2023-2 5 season) 2023 Influenza Vaccine (Season Ended) 2024 HIB Vaccines Aged Out No longer eligi ble based on patient's age to complete this topic HPV Vaccines Aged Out No longer eligi ble based on patient's age to complete this topic Hepatitis A Vaccines Aged Out No long er eligible based on patient's age to complete this topic IPV Vaccines Aged Out No longer eligi ble based on patient's age to complete this topic MMR Vaccines Aged Out No longer eligi ble based on patient's age to complete this topic Meningococcal ACWY Vaccine Aged Out N o longer eligible based on patient's age to complete this topic Meningococcal B Vaccine Aged Out No l onger eligible based on patient's age to complete this topic Pneumococcal Vaccine: Pediat rics (0 to 5 Years) and At-Risk Patients (6 to 64 Years) Aged Out No longer eligible b ased on patient's age to complete this topic RSV Immunization Patients Un angela 20 months Aged Out No longer eligible b ased on patient's age to complete this topic Varicella Vaccines Aged Out No longer eligible based on patient's age to complete this topic Advance Directives Documents on File Type Date Recorded Patient Individual Pension Adviser Expl anation Health Care Decision (hx) 12/30/2016 AD SOLOMON DIRECTIVE Health Care Decision (hx) 12/30/2016 AD SOLOMON DIRECTIVE Health Care Decision (hx) 12/30/2016 AD SOLOMON DIRECTIVE Health Care Decision (hx) 12/30/2016 AD SOLOMON DIRECTIVE Health Care Decision (hx) 12/30/2016 AD SOLOMON DIRECTIVE
--- OUTSIDE RECORDS SUMMARY | 2024-09-05 15:10 | XMS_ITS | Clinical Summary ---
Author Organization [facility] Address [address] [place] [address] Care Team Providers Care Juvenile Counselor Name Role Phone Unavailable Primary Care Provider Unavailabl e Encounters Date Type Department Care Team Description 06/06/2024 Population Health Risk Score [facility] (C[facility]) Department [address] [facility] [place] [address] Provider, Population Health Generic from Last 3 Months Social History Tobacco Use Types Packs/Day Years Used Date Smoking Tobacco: Never Assessed Sex and Gender Information Value Date Recorded Sex Assigned at Male 01/04/2022 10:14 AM EDT Legal Sex Male 10:14 AM EDT Gender Identity Male 01/04/2022 10:14 AM EDT Sexual Orientation Straight 01/04/2022 10 :14 AM EDT Plan of Treatment Health Maintenance Due Date Last Done Comments Depression Screening 1988 HIV Screening 1988 Lipid Panel 1988 Disability Screening 1988 Alcohol/Substance Use Screening 2000 Tobacco Screening 2000 Family Planning (PISQ) 07/23/2003 Hepatitis C Screening 2006 DTaP/Tdap/Td Vaccines (1 - Tdap) 07/23/2007 Hepatitis B Vaccines (1 of 3 - 19+ 3-dose series) 07/23/2007 COVID-19 Vaccine ( - 2023-2 5 season) 2023 Influenza Vaccine (Season Ended) 2024 Zoster Vaccines (1 of 2) 2038 RSV Patients and Pa tients Aged 60 years or older (1 - 1-dose 75+ series) 07/23/2063 HIB Vaccines Aged Out No longer eligi [...] patient's age to complete this topic Meningococcal Vaccine Aged Out No mason shira eligible based on patient's age to complete this topic Pneumococcal Vaccine: Pediat rics (0 to 5 Years) and At-Risk Patients (6 to 49) Years Aged Out No longer eligible b ased on patient's age to complete this topic RSV under 20 months Aged Out No longe r eligible based on patient's age to complete this topic Rotavirus Vaccines Aged Out No longer eligible based on patient's age to complete this topic
== END 2024-09-05 15:01 | disposition left against medical advice (07) ==
PROVIDERS: Emergency Provider Emergency Medicine
DX: N50.82 Scrotal pain (principal); N50.89 Other specified disorders of the male genital organs
CPT/HCPCS: 99281

== ENCOUNTER 2024-09-05 20:19 | Inpatient (IN) | payer MEDICAID, SELFPAY ==
--- NOTE | ~2024-09-05 | US_ITS ---
CLINICAL HISTORY: left testicular pain US Scrotum with Doppler Comparison: None provided Findings: Right testicle normal echotexture, 3.9 x 1.7 x 2.7 cm, corresponds to a volume of 9.1 mL. Left testicle is enlarged measures 3.8 x 2.3 x 3.3 cm, corresponds to a volume of 15.2 mL. This marked hyperemia of the left testicle and epididymis. Color Doppler and arterial/venous spectral tracings of both testicles within normal limits. The right epididymis is within normal limits. No varicoceles. No hydroceles. IMPRESSION: Marked hyperemia of the left testicle and epididymis with edema concerning for left orchitis/epididymitis. This document has been electronically signed by: Siri Olguin MD on 09/05/2024 22:09:28
[2024-09-05 20:20] VITALS: BP 112/78; PULSE 94; RESP 18; TEMP 36.9; O2SAT 99; BMI 21.8
--- NOTE | 2024-09-05 20:21 | ED.GENADULT ---
HPI - General Adult General Chief complaint: Urogenital-Male Stated complaint: left testicle pain swollen Time Seen by Provider: 09/05/24 20:54 Source: patient Mode of arrival: ambulatory Limitations: no limitations History of Present Illness ED Provider: HPI narrative: Patient's history of IVDA not sexually active lately no history of STI in the past, apparently noticed sudden increase in pain and swelling of the left testicle 3 days ago which got worse prior to arrival patient denied any urinary symptoms no penile discharge no rectal intercourse Related Data Home Medications ?Medication ?Instructions ?Recorded ?Confirmed methadone 10 mg/5 mL oral solution 185 mg PO DAILY 02/26/24 02/26/24 Previous Rx's ?Medication ?Instructions ?Recorded amoxicillin 875 mg-potassium 1 tab PO BID 10 days #20 tabs 02/05/22 clavulanate 125 mg tablet erythromycin 5 mg/gram (0.5 %) eye 1 appl ophthalmic-Left DAILY #3.5 01/10/24 ointment grams ketorolac 10 mg tablet 10 mg PO Q8H PRN pain #10 tabs 01/10/24 Allergies Allergy/AdvReac Type Severity Reaction Status Date / Time No Known Allergies (No Known Allergy Verified 09/05/24 20:24 Allergies*) Review of Systems Review of Systems: Yes all other systems are reviewed and are negative PMFSH Past Medical History Medical History Seizures Social History Social History Alcohol intake: unknown Substance Use Type: Other Advance Directives: No Advance Directives Information Provided: No Do you have a plan to hurt others: No Plan Physical Exam ED Vital Signs: Vital Signs - 24 hr 09/05/24 20:20 Temperature 98.5 F Pulse Rate 94 Respiratory Rate 18 Blood Pressure 112/78 Pulse Oximetry 99 Oxygen Delivery Method Room Air BMI result Body Mass Index 21.8 Appearance: Alert. Oriented X3. No acute distress. Eyes: no pallor or icterus ENT: Pharynx normal Oral Mucosa moist tympanic membrane intact no erythema, Neck: Normal inspection. Neck supple. CVS: Normal heart rate and rhythm. Pulses normal. Respiratory: No respiratory distress. Equal air entry bilateral, no wheezing/rales/rhonchi Abd: soft, not tender Skin: Skin warm and dry. Normal skin color. Normal skin turgor. : Left epididymis and testicle enlarged and tender right testicle normal normal alignment of the testicles Extremities: No lower extremity edema, no calf tenderness Neuro: Oriented X 3. Course Course Course Narrative: RME, this is a rapid medical exam performed by Fernando Ramirez please refer to primary provider for complete H&P- 34-year-old male presents for evaluation of left testicular pain. He checked in earlier today and left without being seen. Plan for labs urinalysis and ultrasound Medications Administered Generic Name Dose Route Start Last Admin Trade Name Freq PRN Reason Stop Dose Admin Enoxaparin Sodium 40 mg 09/05/24 23:00 09/05/24 23:53 Enoxaparin Sodium 40 Mg/0.4 Ml Syringe SUBCUT 40 mg Q24H RACHELLE Administration Hydromorphone HCl 0.5 mg 09/05/24 22:34 09/05/24 23:53 Hydromorphone Hcl 0.5 Mg/0.5 Ml Syringe IVPUSH 0.5 mg Q4H PRN Administration Pain, Severe (Pain Scale 7-10) Protocol Lactated Ringer's 1,000 mls @ 100 mls/hr 09/05/24 22:45 09/05/24 23:53 Lr IVCONT 100 mls/hr .Q10H RACHELLE Administration Discontinued Medications Generic Name Dose Route Start Last Admin Trade Name Freq PRN Reason Stop Dose Admin Ceftriaxone Sodium 1 gm 09/05/24 21:28 09/05/24 21:30 Ceftriaxone Sodium 1 Gm Vial IVPUSH 09/05/24 21:29 1 gm ONCE ONE Administration Sodium Chloride 1,000 mls @ 999 mls/hr 09/05/24 21:25 09/05/24 21:40 Ns IV 09/05/24 22:25 999 mls/hr .Q1H1M ONE Administration Doxycycline Hyclate 100 mg/ 250 mls @ 166.67 mls/hr 09/05/24 21:28 09/05/24 21:47 Sodium Chloride IV 09/05/24 22:57 166.67 mls/hr ONCE ONE Administration Medical Decision Making Medical Decision Making MDM Narrative: Patient with left testicular pain ultrasound showed enlarged epididymis and left testicle suggestive of epididymo-orchitis no fluid collection or drainable abscess noticed. Will start patient on Rocephin and doxycycline patient is currently not sexually active no history of STI at this time but patient does use IV drugs has a leukocytosis admit to the hospitalist service Differential Diagnosis Differential Diagnoses: The differential diagnosis associated with the presentation includes Testicular torsion/abscess/epididymitis/orchitis Admission/Observation Consideration of admission/observation: Escalation of care including admission/observation considered Consult Healthcare Provider Management of the patient was discussed with: Hospitalist Lab Data MDM Lab Attestation statement: I reviewed the patient's lab results. 09/05/24 20:36 09/05/24 20:36 Labs: Lab Results 09/05/24 09/05/24 Range/Units 20:36 21:23 WBC 24.5 H (4.8-10.8) X10*3/uL RBC 4.08 L (4.60-5.80) X10*6/uL Hgb 13.4 L (14.0-18.0) g/dl Hct 38.2 L (42.0-52.0) % MCV 93.6 (80.0-98.0) fL MCH 32.8 (27.0-33.0) pg MCHC 35.1 (31.0-36.0) g/dl RDW 12.1 (11.0-16.0) % Plt Count 366 D (160-400) X10*3/uL MPV 9.5 (9.4-12.4) fL Immature Gran % (Auto) 4.1 H (0.0-0.4) % Neut % (Auto) 64.4 (45-73) % Lymph % (Auto) 26.0 (20-40) % [place] % (Auto) 4.8 (2-11) % Eos % (Auto) 0.2 (0-4) % Baso % (Auto) 0.5 (0-2) % Lymph # (Auto) 6.4 H (1.2-4.9) X10*3/uL [place] # (Auto) 1.2 (0.1-1.2) X10*3/uL Eos # (Auto) 0.1 (0.0-0.4) X10*3/uL Baso # (Auto) 0.1 (0.0-0.2) X10*3/uL Abs Immat Gran (auto) 1.00 H (0.00-0.03) X10*3/uL Absolute Neuts (auto) 15.8 H (2.0-8.3) x10*3/uL Absolute Nucleated RBC 0.000 (0.0-0.012) X10*3/uL Nucleated RBC % (auto) 0.0 (0.0-0.2) /100WBC Smear Tech's Comments VERIFIED Sodium 132 L (135-145) mmol/L Potassium 3.6 (3.3-5.1) mmol/L Chloride 96 (96-108) mmol/L Carbon Dioxide 22 (22-29) mmol/L Anion Gap 18 (12-20) BUN 22 H (9-16) mg/dL Creatinine 1.39 (0.5-1.4) mg/dL Estim Creat Clear Calc 63.5 Estimated GFR 58 Random Glucose 103 (60-115) mg/dL Lactic Acid 1.5 (0.5-2.0) mmol/L Calcium 9.1 D (8.4-10.2) mg/dL Urine Color Dark Yellow Urine Appearance Cloudy Urine pH 5.0 (5.0-9.0) Ur Specific [place] 1.025 (1.005-1.025) Urine Protein 30 (1+) H (Neg-Trace) mg/dL Urine Glucose (UA) Negative (Negative) mg/dL Urine Ketones 15 (Negative) mg/dL Urine Blood Negative (Negative) Urine Nitrite Negative (Negative) Ur Leukocyte Esterase Small (1+) H (Negative) Urine RBC 0-2 (0-2) /HPF Urine WBC 6-10 (0-5) /HPF Ur Squamous Epith Cells 3-5 (0-2) /HPF Urine Bacteria None Seen (None Seen) Hyaline Casts >20 (0-2) /LPF Independent Interpretation I performed an independent interpretation of an: Ultrasound Radiology Impression Discussion of test interpretation with radiology: I have reviewed the radiologist's reading. Radiologist Impression: [address] [address] Ultrasound Report Signed Patient: Tung Tijerina MR#: [id number] : 1990 Acct:[id number] Age/Sex: 34 / M ADM Date: 09/05/24 Loc: HO.ED Attending Dr: Ordering Physician: Jann Ramirez Date of Service: 09/05/24 Procedure(s): US scrotum Accession Number(s): [id number] cc: Jann Ramirez; Physician,None ~ CLINICAL HISTORY: left testicular pain US Scrotum with Doppler Comparison: None provided Findings: Right testicle normal echotexture, 3.9 x 1.7 x 2.7 cm, corresponds to a volume of 9.1 mL. Left testicle is enlarged measures 3.8 x 2.3 x 3.3 cm, corresponds to a volume of 15.2 mL. This marked hyperemia of the left testicle and epididymis. Color Doppler and arterial/venous spectral tracings of both testicles within normal limits. The right epididymis is within normal limits. No varicoceles. No hydroceles. IMPRESSION: Marked hyperemia of the left testicle and epididymis with edema concerning for left orchitis/epididymitis. This document has been electronically signed by: Siri Olguin MD on 09/05/2024 22:09:28 Discharge Plan Discharge Clinical Impression: Acute epididymo-orchitis Patient Disposition: Admitted As Inpatient
[2024-09-05 20:45] LABS: Appearance Urine Cloudy; Glucose Urine UA Negative (Negative); PH 5.0 (5.0-9.0); Specific Gravity - Urine 1.025 (1.005-1.025); UMIC TRIGGER UACC YES
[2024-09-05 20:47] LABS: Hematocrit 38.2 % (42.0-52.0); Hemoglobin 13.4 g/dl (14.0-18.0); Imm Gran Abs Auto 1.00 X10*3/uL (0.00-0.03); Imm Gran Pct Auto 4.1 % (0.0-0.4); Lymphocytes Absolute Auto 6.4 X10*3/uL (1.2-4.9); MANUAL DIFF FLAG SCAN; Mean Corpuscular HGB Conc 35.1 g/dl (31.0-36.0); Mean Corpuscular Hemoglobin 32.8 pg (27.0-33.0); Mean Corpuscular Volume 93.6 fL (80.0-98.0); NRBC Abs Auto 0.000 X10*3/uL (0.0-0.012); NRBC Pct Auto 0.0 /100WBC (0.0-0.2); Platelet Count 366 X10*3/uL (160-400); Red Blood Count 4.08 X10*6/uL (4.60-5.80); SCAN SMEAR FLAG 1; White Blood Count 24.5 X10*3/uL (4.8-10.8)
[2024-09-05 20:55] LABS: Anion Gap 18 (12-20); Blood Urea Nitrogen 22 mg/dL (9-16); Calcium 9.1 mg/dL (8.4-10.2); Carbon Dioxide 22 mmol/L (22-29); Chloride 96 mmol/L (96-108); Creatinine Clr Calc Pharmacy 63.5; Estimated Glomerular Filt Rate 58; Potassium 3.6 mmol/L (3.3-5.1); Sodium 132 mmol/L (135-145)
[2024-09-05 21:00] LABS: UACC Culture Trigger YES
--- NOTE | 2024-09-05 22:38 | PM.IMHP ---
History of Present Illness Date of Service: 09/05/24 Chief Complaint: Testicular pain 34-year-old male with a past medical history of opiate dependence presented to the hospital with a chief complaint of testicular pain. Patient reports that for the past 2 days he has been having pain in his left testicle with swelling hence brought into the ER for further evaluation. Denies any trauma or injury. Denies any chest pain or palpitations. Denies any fevers and chills. Denies any urinary symptoms. Review of all other systems is negative except mentioned above ER course: Per ER team, patient noted to have swollen testicle; ultrasound showed findings concerning for epididymal orchitis. No evidence of torsion. Given antibiotics. [facility] Medical History Seizures Social History Alcohol intake: unknown Substance Use Type: Other Advance Directives: No Advance Directives Information Provided: No Do you have a plan to hurt others: No Plan Meds Allergies Allergy/AdvReac Type Severity Reaction Status Date / Time No Known Allergies (No Known Allergy Verified 09/05/24 20:24 Allergies*) Active Medications: Current Medications Doxycycline Hyclate 100 mg/ (Sodium Chloride) 250 mls @ 166.67 mls/hr IV ONCE ONE Stop: 09/05/24 22:57 Last Admin: 09/05/24 21:47 Dose: 166.67 mls/hr Home Medications ?Medication ?Instructions ?Recorded ?Confirmed ?Last Taken ?Type methadone 10 mg/5 mL oral solution 185 mg PO DAILY 02/26/24 02/26/24 02/20/24 08:46 History Physical Exam Vital Signs and Narrative: Vital Signs: Last Vital Signs Temp 98.5 F 09/05/24 20:20 Pulse 94 09/05/24 20:20 Resp 18 09/05/24 20:20 BP 112/78 09/05/24 20:20 Pulse Ox 99 09/05/24 20:20 O2 Del Method Room Air 09/05/24 20:20 BMI result Body Mass Index 21.8 Gen: Appears be in no acute distress HEENT: NCAT, Moist mucosa. Pulmonary: Vesicular breath sounds, fair air entry CVS: Normal S1-S2 Abdomen: BS+, Soft, Nontender Extremities: Warm well perfused Neuro: Alert and awake. Genitourinary: Examined along with a female sizing machine operator at bedside. Noted to have swollen left testicle tender to palpate. Results Labs 09/05/24 20:36 09/05/24 20:36 Labs: Laboratory Results - last 24 hr 09/05/24 09/05/24 20:36 21:23 MCV 93.6 MCH 32.8 MCHC 35.1 RDW 12.1 Plt Count 366 D MPV 9.5 Immature Gran % (Auto) 4.1 H Neut % (Auto) 64.4 Lymph % (Auto) 26.0 [place] % (Auto) 4.8 Eos % (Auto) 0.2 Baso % (Auto) 0.5 Lymph # (Auto) 6.4 H [place] # (Auto) 1.2 Eos # (Auto) 0.1 Baso # (Auto) 0.1 Abs Immat Gran (auto) 1.00 H Absolute Neuts (auto) 15.8 H Absolute Nucleated RBC 0.000 Nucleated RBC % (auto) 0.0 Smear Tech's Comments VERIFIED Anion Gap 18 Estim Creat Clear Calc 63.5 Estimated GFR 58 Random Glucose 103 Lactic Acid 1.5 Calcium 9.1 D Urine Color Dark Yellow Urine Appearance Cloudy Urine pH 5.0 Ur Specific [place] 1.025 Urine Protein 30 (1+) H Urine Glucose (UA) Negative Urine Ketones 15 Urine Blood Negative Urine Nitrite Negative Ur Leukocyte Esterase Small (1+) H Urine RBC 0-2 Urine WBC 6-10 Ur Squamous Epith Cells 3-5 Urine Bacteria None Seen Hyaline Casts >20 Assessment and Plan (1) Acute epididymo-orchitis: Status: Acute Plan 34-year-old male with a past medical history of opiate dependence presented to the hospital with a chief complaint of testicular pain. Noted to have acute epididymo-orchitis. Acute epididymo-orchitis: Scrotal ultrasound showedMarked hyperemia of the left testicle and epididymis with edema concerning for left orchitis/epididymitis. Color Doppler and arterial/venous spectral tracings of both testicles within normal limits. Continue ceftriaxone, doxycycline Pain control ID consult Urology consult for further recommendations Will send a chlamydia, gonorrhea as well Opiate dependence: Patient on methadone maintenance program. Will defer to the day team to confirm and resume home methadone. Addiction medicine consult. Quality Stroke Does the patient have a stroke diagnosis?: No VTE Prior VTE?: No VTE Risk Level:: Medical - moderate - high VTE Device Contraindication: Treatment Not Indicated VTE Drug Contraindication: N/A - Med Ordered
[2024-09-05] MEDS: Lactated Ringers 1,000 ML 100 ML IVCONT (23:53)
--- NOTE | 2024-09-05 23:56 | PC.NURSE ---
To over care from RN Alberta, pt medicated per may, pt given aroldo-alfreod and cranberry juice. call brownlee at the bed side
[2024-09-06 00:17] VITALS: BP 124/81; PULSE 64; RESP 18; TEMP 36.9; O2SAT 96
[2024-09-06] MEDS: 0.9 % Sodium Chloride Flush 3 ML SYRINGE IVFLUSH ×3 (03:11→20:00)
[2024-09-06 03:52] VITALS: BP 146/88; PULSE 64; RESP 18; TEMP 36.6; O2SAT 98
[2024-09-06 06:20] LABS: MANUAL DIFF FLAG NO
[2024-09-06 06:43] LABS: Anion Gap 12 (12-20); Blood Urea Nitrogen 13 mg/dL (9-16); Calcium 8.2 mg/dL (8.4-10.2); Carbon Dioxide 26 mmol/L (22-29); Chloride 99 mmol/L (96-108); Creatinine Clr Calc Pharmacy 138.1; Estimated Glomerular Filt Rate > 60; Potassium 3.1 mmol/L (3.3-5.1); Sodium 134 mmol/L (135-145)
[2024-09-06 07:18] LABS: Hematocrit 32.6 % (42.0-52.0); Hemoglobin 11.3 g/dl (14.0-18.0); Imm Gran Abs Auto 0.38 X10*3/uL (0.00-0.03); Imm Gran Pct Auto 3.0 % (0.0-0.4); Lymphocytes Absolute Auto 3.7 X10*3/uL (1.2-4.9); Mean Corpuscular HGB Conc 34.7 g/dl (31.0-36.0); Mean Corpuscular Hemoglobin 32.8 pg (27.0-33.0); Mean Corpuscular Volume 94.8 fL (80.0-98.0); NRBC Abs Auto 0.000 X10*3/uL (0.0-0.012); NRBC Pct Auto 0.0 /100WBC (0.0-0.2); Platelet Count 277 X10*3/uL (160-400); Red Blood Count 3.44 X10*6/uL (4.60-5.80); White Blood Count 12.7 X10*3/uL (4.8-10.8)
[2024-09-06 07:20] VITALS: BP 109/61; PULSE 62; RESP 16; TEMP 36.4; O2SAT 97
--- NOTE | 2024-09-06 07:40 | P.PNIM_ITS ---
Subjective Subjective Date of Service: 09/06/24 Interval History: f/u on Acute epididymo-orchitis still has pain but better Physical Exam 2 Vital Signs: Vital Signs: Last Vital Signs Temp 97.6 F 09/06/24 07:20 Pulse 62 09/06/24 07:20 Resp 16 09/06/24 07:20 BP 109/61 09/06/24 07:20 Pulse Ox 97 09/06/24 07:20 O2 Del Method Room Air 09/06/24 07:20 BMI result Body Mass Index 21.8 Const: Other: unchanged from h and p Objective Data Active Medications Acetaminophen (Acetaminophen 325 Mg Tablet) 650 mg PO Q6H PRN PRN Reason: Pain, Mild 1-3,fever,headache Calcium Carbonate (Calcium Carbonate 750 Mg Tab.Chew) 750 mg PO Q4H PRN PRN Reason: Heartburn Ceftriaxone Sodium (Ceftriaxone Sodium 1 Gm Vial) 1 gm IVPUSH Q24H RACHELLE Enoxaparin Sodium (Enoxaparin Sodium 40 Mg/0.4 Ml Syringe) 40 mg SUBCUT Q24H [facility] Last Admin: 09/05/24 23:53 Dose: 40 mg Documented By: FADIA Hydromorphone HCl (Hydromorphone Hcl 0.5 Mg/0.5 Ml Syringe) 0.5 mg IVPUSH Q4H PRN; Protocol PRN Reason: Pain, Severe (Pain Scale 7-10) Last Admin: 09/06/24 04:14 Dose: 0.5 mg Documented By: LOLA Lactated Ringer's (Lr) 1,000 mls @ 100 mls/hr IVCONT .Q10H [facility] Last Admin: 09/05/24 23:53 Dose: 100 mls/hr Documented By: FADIA Doxycycline Hyclate 100 mg/ (Sodium Chloride) 250 mls @ 166.67 mls/hr IV Q12H [facility] Magnesium Hydroxide (Milk Of Magnesia 30 Ml Oral.Susp) 30 ml PO DAILY PRN PRN Reason: Constipation Melatonin (Melatonin 3 Mg Tablet) 6 mg PO BEDTIME PRN PRN Reason: Insomnia Sodium Chloride (0.9 % Sodium Chloride Flush 3 Ml Syringe) 3 ml IVFLUSH QSHIFT [facility] Last Admin: 09/06/24 03:11 Dose: 3 ml Documented By: FADIA Labs 09/06/24 05:50 07/03/25 05:50 Labs: Laboratory Results - last 24 hr 09/05/24 09/05/24 09/06/24 20:36 21:23 05:50 MCV 93.6 94.8 MCH 32.8 32.8 MCHC 35.1 34.7 RDW 12.1 12.2 Plt Count 366 D 277 MPV 9.5 10.0 Immature Gran % (Auto) 4.1 H 3.0 H Neut % (Auto) 64.4 59.8 Lymph % (Auto) 26.0 29.1 [place] % (Auto) 4.8 6.7 Eos % (Auto) 0.2 1.0 Baso % (Auto) 0.5 0.4 Lymph # (Auto) 6.4 H 3.7 [place] # (Auto) 1.2 0.9 Eos # (Auto) 0.1 0.1 Baso # (Auto) 0.1 0.1 Abs Immat Gran (auto) 1.00 H 0.38 H Absolute Neuts (auto) 15.8 H 7.6 Absolute Nucleated RBC 0.000 0.000 Nucleated RBC % (auto) 0.0 0.0 Smear Tech's Comments VERIFIED Anion Gap 18 12 Estim Creat Clear Calc 63.5 138.1 Estimated GFR 58 > 60 Random Glucose 103 89 Lactic Acid 1.5 Calcium 9.1 D 8.2 L D Urine Color Dark Yellow Urine Appearance Cloudy Urine pH 5.0 Ur Specific [place] 1.025 Urine Protein 30 (1+) H Urine Glucose (UA) Negative Urine Ketones 15 Urine Blood Negative Urine Nitrite Negative Ur Leukocyte Esterase Small (1+) H Urine RBC 0-2 Urine WBC 6-10 Ur Squamous Epith Cells 3-5 Urine Bacteria None Seen Hyaline Casts >20 Assessment and Plan (1) Acute epididymo-orchitis: Status: Acute Plan 34-year-old male with a past medical history of opiate dependence presented to the hospital with a chief complaint of testicular pain. Noted to have acute epididymo-orchitis. Acute epididymo-orchitis: improving, wbc jannette to 12, from 24 Scrotal ultrasound showedMarked hyperemia of the left testicle and epididymis with edema concerning for left orchitis/epididymitis. Color Doppler and arterial/venous spectral tracings of both testicles within normal limits. Continue ceftriaxone, doxycycline Pain control ID consult Urology consult for further recommendations Will send a chlamydia, gonorrhea as well HypOkalemia, 3.1 KCL supplement Opioid dependent resume methadone Opiate dependence: Patient on methadone maintenance program. Will defer to the day team to confirm and resume home methadone. Addiction medicine consult. Quality Stroke Does the patient have a stroke diagnosis?: No VTE Prior VTE?: No VTE Risk Level:: Medical - moderate - high VTE Device Contraindication: Treatment Not Indicated VTE Drug Contraindication: N/A - Med Ordered
--- NOTE | 2024-09-06 08:05 | PHA.MEDREC ---
Addendum entered by Nely Sanchez RPh 09/06/24 08:23: reviewed by [facility]. Original Note: Pharmacy Consult ? Medication Reconciliation Pharmacy has completed the medication reconciliation. Spoke with pt and he confirmed he is only taking Methadone 185mg QD and states he gets it at [facility] here in [place].
[2024-09-06] MEDS: Potassium Chloride ER 20 MEQ TAB.ER.PRT 40 MEQ PO (08:36)
[2024-09-06] MEDS: Lactated Ringers 1,000 ML 100 ML IVCONT ×2 (08:38→23:31)
--- NOTE | 2024-09-06 09:44 | HE.PHANOTE ---
METHADONE Dose: 185mg, last dosed 09/03/24 @0832, given 6 take home doses to last until 09/09/24 per ESTEPHANIA Chapman at [facility] . Pt stated he last took his dose 09/05/24.
[2024-09-06 11:30] VITALS: BP 121/53; PULSE 63; RESP 18; TEMP 36.3; O2SAT 97
[2024-09-06] MEDS: methADONE HCl 20 MG/2 ML ORAL.CONC 185 MG PO (11:37)
--- NOTE | 2024-09-06 11:58 | MHC.CM.PN ---
EMR REVIEWED, CM MET W/PT WHO REPORTS HE IS HOMELESS LIVING ON ST, PT DECLINES NEED FOR CORRECTION PLACEMENT BUT WOULD LIKE A BUS PASS, PT IN [place] W/ALL CARE, NO DME, MMTP AT [facility]. PT DENIES HAVING A PCP, DECLINES ASSISTANCE W/NEW PT APPT. HOWEVER AWARE HE CAN WALK IN TO [facility] IF HE CHANGES HIS MIND AND WOULD LIKE A PCP. THRIVE + AND DECLINES [address].
--- NOTE | 2024-09-06 14:43 | HO.ADDICT_ITS ---
History of Present Illness Date of Service: 09/06/2024 Chief Complaint: epididymo orchitis Reason for Consult: OUD Sources of Information: patient interviewed and chart reviewed [facility] Narrative: Patient is a 34 year old male with history of OUD, medically admitted with epidymo-orchitis. Patient seen in room 459. He is awake, alert, pleasant and engaged in interview. He states he is engaged in treatment for OUD with [facility]. Current methadone dose 185mg--has been at this dose for several weeks and finds it to be very effective. Reports ongoing cocaine use, and states use has decreased significantly--now using once daily. Normally uses IN, but occasionally with use via IV route. Usual injection site appears clear without redness or swelling--scar tissue due to frequent use of area. He reports testicular pain is overall improving since arriving here as PRN Dilaudid has been ordered. Denies any concerns related to substance use or treatment providers. Last HIV screen 2018. HCV VL+in as well. Medical Evaluation Reviewed: Yes Review of Systems Constitutional: Reports as per HPI Diagnostics Vital Signs (24Hr): Vital Signs - 24 hr 09/05/24 20:20 09/06/24 00:17 09/06/24 03:52 Temperature 98.5 F 98.5 F 98 F Pulse Rate 94 64 64 Respiratory Rate 18 18 18 Blood Pressure 112/78 124/81 146/88 H Pulse Oximetry 99 96 98 Oxygen Delivery Method Room Air Room Air Room Air 09/06/24 07:20 09/06/24 11:30 Temperature 97.6 F 97.3 F Pulse Rate 62 63 Respiratory Rate 16 18 Blood Pressure 109/61 121/53 L Pulse Oximetry 97 97 Oxygen Delivery Method Room Air Room Air BMI result Body Mass Index 21.8 Labs 09/06/24 05:50 09/06/24 05:50 Labs: Laboratory Results - last 48 hr 09/05/24 09/05/24 09/06/24 20:36 21:23 05:50 WBC 24.5 H 12.7 H RBC 4.08 L 3.44 L Hgb 13.4 L 11.3 L Hct 38.2 L 32.6 L MCV 93.6 94.8 MCH 32.8 32.8 MCHC 35.1 34.7 RDW 12.1 12.2 Plt Count 366 D 277 MPV 9.5 10.0 Immature Gran % (Auto) 4.1 H 3.0 H Neut % (Auto) 64.4 59.8 Lymph % (Auto) 26.0 29.1 [place] % (Auto) 4.8 6.7 Eos % (Auto) 0.2 1.0 Baso % (Auto) 0.5 0.4 Lymph # (Auto) 6.4 H 3.7 [place] # (Auto) 1.2 0.9 Eos # (Auto) 0.1 0.1 Baso # (Auto) 0.1 0.1 Abs Immat Gran (auto) 1.00 H 0.38 H Absolute Neuts (auto) 15.8 H 7.6 Absolute Nucleated RBC 0.000 0.000 Nucleated RBC % (auto) 0.0 0.0 Smear Tech's Comments VERIFIED Sodium 132 L 134 L Potassium 3.6 3.1 L Chloride 96 99 Carbon Dioxide 22 26 Anion Gap 18 12 BUN 22 H 13 Creatinine 1.39 0.64 Estim Creat Clear Calc 63.5 138.1 Estimated GFR 58 > 60 Random Glucose 103 89 Lactic Acid 1.5 Calcium 9.1 D 8.2 L D Urine Color Dark Yellow Urine Appearance Cloudy Urine pH 5.0 Ur Specific [place] 1.025 Urine Protein 30 (1+) H Urine Glucose (UA) Negative Urine Ketones 15 Urine Blood Negative Urine Nitrite Negative Ur Leukocyte Esterase Small (1+) H Urine RBC 0-2 Urine WBC 6-10 Ur Squamous Epith Cells 3-5 Urine Bacteria None Seen Hyaline Casts >20 C. pneumoniae IgG Ab Cancelled C. pneumoniae IgA Ab Cancelled C. pneumoniae IgM Ab Cancelled C. pneumoniae Ab Interp Cancelled C. trachomatis IgG Ab Cancelled C. trachomatis IgA Ab Cancelled C. trachomatis IgM Ab Cancelled C.trachomatis Ab Interp Cancelled C. psittaci IgG Ab Cancelled C. psittaci IgA Ab Cancelled C. psittaci IgM Ab Cancelled C. psittaci Ab Interp Cancelled Mental Status Exam Mental Status Exam Patient Appearance: Well Grooomed and Appropriate Level of Consciousness: Awake, Appropriate and Alert Patient Behavior: Appropriate and Cooperative Mood Description: Calm Affect Description: Calm Speech Pattern: Clear Thought Process: Intact Thought Content: positive for Intact Judgement: Good Medications Medications Current Medications Acetaminophen (Acetaminophen 325 Mg Tablet) 650 mg PO Q6H PRN PRN Reason: Pain, Mild 1-3,fever,headache Calcium Carbonate (Calcium Carbonate 750 Mg Tab.Chew) 750 mg PO Q4H PRN PRN Reason: Heartburn Ceftriaxone Sodium (Ceftriaxone Sodium 1 Gm Vial) 1 gm IVPUSH Q24H [facility] Enoxaparin Sodium (Enoxaparin Sodium 40 Mg/0.4 Ml Syringe) 40 mg SUBCUT Q24H [facility] Last Admin: 09/05/24 23:53 Dose: 40 mg Hydromorphone HCl (Hydromorphone Hcl 0.5 Mg/0.5 Ml Syringe) 0.5 mg IVPUSH Q4H PRN; Protocol PRN Reason: Pain, Severe (Pain Scale 7-10) Last Admin: 09/06/24 09:17 Dose: 0.5 mg Lactated Ringer's (Lr) 1,000 mls @ 100 mls/hr IVCONT .Q10H [facility] Last Admin: 09/06/24 08:38 Dose: 100 mls/hr Doxycycline Hyclate 100 mg/ (Sodium Chloride) 250 mls @ 166.67 mls/hr IV Q12H [facility] Last Infusion: 09/06/24 11:04 Dose: Infused Magnesium Hydroxide (Milk Of Magnesia 30 Ml Oral.Susp) 30 ml PO DAILY PRN PRN Reason: Constipation Melatonin (Melatonin 3 Mg Tablet) 6 mg PO BEDTIME PRN PRN Reason: Insomnia Methadone HCl (Methadone Hcl 20 Mg/2 Ml Oral.Conc) 185 mg PO DAILY [facility] Last Admin: 09/06/24 11:37 Dose: 185 mg Sodium Chloride (0.9 % Sodium Chloride Flush 3 Ml Syringe) 3 ml IVFLUSH QSHIFT [facility] Last Admin: 09/06/24 09:17 Dose: 3 ml Allergies Allergies Allergy/AdvReac Type Severity Reaction Status Date / Time No Known Allergies (No Known Allergy Verified 09/05/24 20:24 Allergies*) Assessment & Plan Assessment & Plan (1) Opioid use disorder: Status: Acute Code(s): F11.90 - Opioid use, unspecified, uncomplicated Assessment and Plan: * continue home dose of methadone * analgesics as needed * risk reduction discussion related ongoing cocaine use--patient very knowledgeable in terms of community resources, and safer use strategies * updated hepatitis and HIV screens due to ongoing IVDU. Total time managing care of this patient today _25___ minutes. PMFSH Past Medical History Medical History Seizures Social History Social History Household Members: Other Housing: Homeless Alcohol intake: unknown Patient Tobacco Use Status: Current everyday Tobacco user Substance Use Type: Other Currently Displaying Signs/Symptoms of Drug Intoxication Withdrawal: No Advance Directives: No Advance Directives Information Provided: No Do you have a plan to hurt others: No Plan service: No
[2024-09-06 15:23] VITALS: BP 131/87; PULSE 56; RESP 16; TEMP 37.5; O2SAT 98
[2024-09-06 19:20] VITALS: BP 127/88; PULSE 65; RESP 16; TEMP 37.2; O2SAT 97
[2024-09-07 03:23] VITALS: BP 151/96; PULSE 55; RESP 16; TEMP 37.2; O2SAT 99
[2024-09-07 08:00] VITALS: BP 130/84; PULSE 56; RESP 20; TEMP 36.6; O2SAT 96
[2024-09-07] MEDS: methADONE HCl 20 MG/2 ML ORAL.CONC 185 MG PO (08:33)
[2024-09-07] MEDS: Lactated Ringers 1,000 ML 100 ML IVCONT ×3 (08:40→20:39)
--- NOTE | 2024-09-07 09:26 | HO.PM.IMPN ---
Subjective Subjective Date of Service: 09/07/24 Interval History: f/u on Acute epididymo-orchitis still has pain but better Physical Exam Vital Signs: Vital Signs: Last Vital Signs Temp 97.8 F 09/07/24 08:00 Pulse 56 09/07/24 08:00 Resp 20 09/07/24 08:00 BP 130/84 09/07/24 08:00 Pulse Ox 96 09/07/24 08:00 O2 Del Method Room Air 09/07/24 08:00 BMI result Body Mass Index 21.8 Const: Other: General: AO X 3, no acute distress Resp: CTA bilateral CVS: S1,S2,RRR GI: +BS, NT, no distention : moderate swelling in left testicular area, minimal redness and very tender Skin: No rash Neuro: motor grossly intact Psych: appropriate affect Objective Data Active Medications Acetaminophen (Acetaminophen 325 Mg Tablet) 650 mg PO Q6H PRN PRN Reason: Pain, Mild 1-3,fever,headache Calcium Carbonate (Calcium Carbonate 750 Mg Tab.Chew) 750 mg PO Q4H PRN PRN Reason: Heartburn Ceftriaxone Sodium (Ceftriaxone Sodium 1 Gm Vial) 1 gm IVPUSH Q24H [facility] Last Admin: 09/06/24 19:56 Dose: 1 gm Documented By: ALLYSON Enoxaparin Sodium (Enoxaparin Sodium 40 Mg/0.4 Ml Syringe) 40 mg SUBCUT Q24H [facility] Last Admin: 09/06/24 23:31 Dose: 40 mg Documented By: ALLYSON Hydromorphone HCl (Hydromorphone Hcl 0.5 Mg/0.5 Ml Syringe) 0.5 mg IVPUSH Q4H PRN; Protocol PRN Reason: Pain, Severe (Pain Scale 7-10) Last Admin: 09/07/24 08:32 Dose: 0.5 mg Documented By: OSWALD Lactated Ringer's (Lr) 1,000 mls @ 100 mls/hr IVCONT .Q10H [facility] Last Admin: 09/07/24 08:40 Dose: 100 mls/hr Documented By: OSWALD Doxycycline Hyclate 100 mg/ (Sodium Chloride) 250 mls @ 166.67 mls/hr IV Q12H [facility] Last Infusion: 09/06/24 21:30 Dose: Infused Documented By: ALLYSON Magnesium Hydroxide (Milk Of Magnesia 30 Ml Oral.Susp) 30 ml PO DAILY PRN PRN Reason: Constipation Melatonin (Melatonin 3 Mg Tablet) 6 mg PO BEDTIME PRN PRN Reason: Insomnia Methadone HCl (Methadone Hcl 20 Mg/2 Ml Oral.Conc) 185 mg PO DAILY [facility] Last Admin: 09/07/24 08:33 Dose: 185 mg Documented By: OSWALD Co-signed By: JEEVAN Sodium Chloride (0.9 % Sodium Chloride Flush 3 Ml Syringe) 3 ml IVFLUSH QSHIFT [facility] Last Admin: 09/06/24 20:00 Dose: 3 ml Documented By: ALLYSON Labs 09/06/24 05:50 09/06/24 05:50 Labs: Laboratory Results - last 24 hr 09/06/24 05:50 C. pneumoniae IgG Ab Cancelled C. pneumoniae IgA Ab Cancelled C. pneumoniae IgM Ab Cancelled C. pneumoniae Ab Interp Cancelled C. trachomatis IgG Ab Cancelled C. trachomatis IgA Ab Cancelled C. trachomatis IgM Ab Cancelled C.trachomatis Ab Interp Cancelled C. psittaci IgG Ab Cancelled C. psittaci IgA Ab Cancelled C. psittaci IgM Ab Cancelled C. psittaci Ab Interp Cancelled Microbiology Microbiology Results: Microbiology 09/05/24 21:23 Blood Culture - Final Blood - Venous Bacillus species 09/05/24 21:23 Blood Culture - Preliminary Blood - Venous No growth after 24 hours. 09/05/24 Unknown Urine Culture - Preliminary Urine clean catch - Clean Catch Midstream No growth to date. Assessment and Plan (1) Acute epididymo-orchitis: Status: Acute Plan 34-year-old male with a past medical history of opiate dependence presented to the hospital with a chief complaint of testicular pain. Noted to have acute epididymo-orchitis. Acute epididymo-orchitis: improving, wbc jannette to 12, from 24 Scrotal ultrasound showedMarked hyperemia of the left testicle and epididymis with edema concerning for left orchitis/epididymitis. Color Doppler and arterial/venous spectral tracings of both testicles within normal limits. Continue ceftriaxone, doxycycline Pain control ID consult pending Urology consult for further recommendations Will send a chlamydia, gonorrhea as well GC/Clamydia pending HypOkalemia, 3.1 KCL supplement Opioid dependent continue methadone seen by [facility] Opiate dependence: Patient on methadone maintenance program. Will defer to the day team to confirm and resume home methadone. Addiction medicine consult. Quality Stroke Does the patient have a stroke diagnosis?: No VTE Prior VTE?: No VTE Risk Level:: Medical - moderate - high VTE Device Contraindication: Treatment Not Indicated VTE Drug Contraindication: N/A - Med Ordered
[2024-09-07] MEDS: 0.9 % Sodium Chloride Flush 3 ML SYRINGE IVFLUSH ×2 (10:04→18:17)
[2024-09-07 16:00] VITALS: BP 150/95; PULSE 56; RESP 20; TEMP 36.1; O2SAT 98
--- NOTE | 2024-09-07 17:06 | W.PM.IDCN ---
History of Present Illness Data of Consult Service Date: 09/06/24 Requesting physician: Hawk Charlton Primary Care Provider: None Physician HPI Reason for consult: left epidydimoorchitis He presents with left testicle pain and swelling for a day. He has no fever or chills. He reports operation age 2 after cut scrotum in tub while taking a bath. He has no reported problems or injuries since. He denies STIs or dysuria. Review of Systems Review of Systems: Yes all other systems are reviewed and are negative PMFSH Past Medical History Medical History Seizures Family History Family history: reviewed and not pertinent Social History Social History Household Members: Other Housing: Homeless Alcohol intake: unknown Patient Tobacco Use Status: Current everyday Tobacco user Substance Use Type: Other Currently Displaying Signs/Symptoms of Drug Intoxication Withdrawal: No Advance Directives: No Advance Directives Information Provided: No Do you have a plan to hurt others: No Plan service: No Meds Allergies Allergy/AdvReac Type Severity Reaction Status Date / Time No Known Allergies (No Known Allergy Verified 09/05/24 20:24 Allergies*) Active Medications: Current Medications Acetaminophen (Acetaminophen 325 Mg Tablet) 650 mg PO Q6H PRN PRN Reason: Pain, Mild 1-3,fever,headache Calcium Carbonate (Calcium Carbonate 750 Mg Tab.Chew) 750 mg PO Q4H PRN PRN Reason: Heartburn Ceftriaxone Sodium (Ceftriaxone Sodium 1 Gm Vial) 1 gm IVPUSH Q24H [facility] Last Admin: 09/06/24 19:56 Dose: 1 gm Enoxaparin Sodium (Enoxaparin Sodium 40 Mg/0.4 Ml Syringe) 40 mg SUBCUT Q24H [facility] Last Admin: 09/06/24 23:31 Dose: 40 mg Hydromorphone HCl (Hydromorphone Hcl 0.5 Mg/0.5 Ml Syringe) 0.5 mg IVPUSH Q4H PRN; Protocol PRN Reason: Pain, Severe (Pain Scale 7-10) Last Admin: 09/07/24 13:20 Dose: 0.5 mg Lactated Ringer's (Lr) 1,000 mls @ 100 mls/hr IVCONT .Q10H [facility] Last Admin: 09/07/24 15:56 Dose: 100 mls/hr Doxycycline Hyclate 100 mg/ (Sodium Chloride) 250 mls @ 166.67 mls/hr IV Q12H [facility] Last Infusion: 09/07/24 11:41 Dose: Infused Magnesium Hydroxide (Milk Of Magnesia 30 Ml Oral.Susp) 30 ml PO DAILY PRN PRN Reason: Constipation Melatonin (Melatonin 3 Mg Tablet) 6 mg PO BEDTIME PRN PRN Reason: Insomnia Methadone HCl (Methadone Hcl 20 Mg/2 Ml Oral.Conc) 185 mg PO DAILY [facility] Last Admin: 09/07/24 08:33 Dose: 185 mg Sodium Chloride (0.9 % Sodium Chloride Flush 3 Ml Syringe) 3 ml IVFLUSH QSHIFT [facility] Last Admin: 09/07/24 10:04 Dose: 3 ml Home Medications ?Medication ?Instructions ?Recorded ?Confirmed ?Last Taken ?Type methadone 10 mg/mL oral concentrate 185 mg PO DAILY 09/06/24 09/06/24 09/05/24 History Physical Exam Vital Signs: Vital Signs: Last Vital Signs Temp 97.0 F 09/07/24 16:00 Pulse 56 09/07/24 16:00 Resp 20 09/07/24 16:00 BP 150/95 H 09/07/24 16:00 Pulse Ox 98 09/07/24 16:00 O2 Del Method Room Air 09/07/24 16:00 BMI result Body Mass Index 21.8 Const: General: cooperative HEENT: Head: Yes normal to inspection Face and sinus: Yes normal facial exam Mouth: Normal oral and palatal mucosa present Teeth and gingiva: dentition normal Eyes: General: appearance normal, both eyes and all related structures Pupils: Equal, round and reactive pupils present Resp: Effort & Inspection: normal respiratory effort Cardio: Rate: regular rate Rhythm: regular rhythm GI: Palpation (GI): Soft to palpation and nontender : Other: pain left testicle and swelling General: Yes no CVA tenderness Back/Spine/Pelvis: Back: no CVA tenderness Skin: General skin exam: no rashes or lesions noted Neuro: General: moves all extremities Cranial nerves: Yes Equal, round and reactive pupils present Extrem: General: Yes normal to inspection Psych: Appearance: grossly normal Results Labs 09/06/24 05:50 09/06/24 05:50 Microbiology Microbiology Results: Microbiology 09/05/24 Unknown Urine clean catch - Clean Catch Midstream Urine Culture - Final No growth. 09/05/24 21:23 Blood - Venous Blood Culture - Final Bacillus species 09/05/24 21:23 Blood - Venous Blood Culture - Preliminary No growth after 24 hours. Assessment and Plan (1) Acute epididymo-orchitis: Status: Acute Plan Would treat with gram negative and possible atypical Would give IV Ceftriaxone and po Doxycycline for now. Probable po cephalosporin for two weeks and po Doxycycline outpatient 2-3 weeks outpatient. See Urology.
--- NOTE | 2024-09-07 17:15 | PM.EVENT ---
Event Note Date of Service: 09/07/24 Event Note: bacillus contaminant 1/2 Time Spent With Patient Time: Total time managing care of this patient today ____ minutes.
[2024-09-07 19:28] VITALS: BP 132/87; PULSE 59; RESP 18; TEMP 36.9; O2SAT 97
[2024-09-07 21:56] VITALS: BP 142/93; PULSE 63; RESP 18; TEMP 37; O2SAT 96
[2024-09-08 02:49] VITALS: BP 150/98; PULSE 54; RESP 18; TEMP 36.3; O2SAT 98
[2024-09-08] MEDS: 0.9 % Sodium Chloride Flush 3 ML SYRINGE IVFLUSH (07:39)
[2024-09-08 07:48] VITALS: BP 146/80; PULSE 58; RESP 18; TEMP 36.6; O2SAT 97
--- NOTE | 2024-09-08 07:52 | P.PNIM_ITS ---
Subjective Subjective Date of Service: 09/08/24 Interval History: f/u on Acute epididymo-orchitis pain is little better Physical Exam 2 Vital Signs: Vital Signs: Last Vital Signs Temp 97.8 F 09/08/24 07:48 Pulse 58 09/08/24 07:48 Resp 18 09/08/24 07:48 BP 146/80 H 09/08/24 07:48 Pulse Ox 97 09/08/24 07:48 O2 Del Method Room Air 09/08/24 07:48 BMI result Body Mass Index 21.8 Const: Other: General: AO X 3, no acute distress Resp: CTA bilateral CVS: S1,S2,RRR GI: +BS, NT, no distention : moderate swelling in left testicular area, minimal redness and very tender Skin: No rash Neuro: motor grossly intact Psych: appropriate affect Objective Data Active Medications Acetaminophen (Acetaminophen 325 Mg Tablet) 650 mg PO Q6H PRN PRN Reason: Pain, Mild 1-3,fever,headache Calcium Carbonate (Calcium Carbonate 750 Mg Tab.Chew) 750 mg PO Q4H PRN PRN Reason: Heartburn Ceftriaxone Sodium (Ceftriaxone Sodium 1 Gm Vial) 1 gm IVPUSH Q24H [facility] Last Admin: 09/07/24 20:39 Dose: 1 gm Documented By: JOHN Enoxaparin Sodium (Enoxaparin Sodium 40 Mg/0.4 Ml Syringe) 40 mg SUBCUT Q24H [facility] Last Admin: 09/07/24 22:12 Dose: 40 mg Documented By: NICA Hydromorphone HCl (Hydromorphone Hcl 0.5 Mg/0.5 Ml Syringe) 0.5 mg IVPUSH Q4H PRN; Protocol PRN Reason: Pain, Severe (Pain Scale 7-10) Last Admin: 09/08/24 07:37 Dose: 0.5 mg Documented By: MIKEL Doxycycline Hyclate 100 mg/ (Sodium Chloride) 250 mls @ 166.67 mls/hr IV Q12H [facility] Last Infusion: 09/07/24 22:34 Dose: Infused Documented By: NICA Magnesium Hydroxide (Milk Of Magnesia 30 Ml Oral.Susp) 30 ml PO DAILY PRN PRN Reason: Constipation Melatonin (Melatonin 3 Mg Tablet) 6 mg PO BEDTIME PRN PRN Reason: Insomnia Methadone HCl (Methadone Hcl 20 Mg/2 Ml Oral.Conc) 185 mg PO DAILY [facility] Last Admin: 09/07/24 08:33 Dose: 185 mg Documented By: OSWALD Co-signed By: JEEVAN Sodium Chloride (0.9 % Sodium Chloride Flush 3 Ml Syringe) 3 ml IVFLUSH QSHIFT [facility] Last Admin: 09/08/24 07:39 Dose: 3 ml Documented By: MIKEL Labs 09/06/24 05:50 09/06/24 05:50 Labs: Laboratory Results - last 24 hr 09/06/24 05:50 C. pneumoniae IgG Ab Cancelled C. pneumoniae IgA Ab Cancelled C. pneumoniae IgM Ab Cancelled C. pneumoniae Ab Interp Cancelled C. trachomatis IgG Ab Cancelled C. trachomatis IgA Ab Cancelled C. trachomatis IgM Ab Cancelled C.trachomatis Ab Interp Cancelled C. psittaci IgG Ab Cancelled C. psittaci IgA Ab Cancelled C. psittaci IgM Ab Cancelled C. psittaci Ab Interp Cancelled Microbiology Microbiology Results: Microbiology 09/05/24 21:23 Blood Culture - Preliminary Blood - Venous No growth after 48 hours. 09/05/24 Unknown Urine Culture - Final Urine clean catch - Clean Catch Midstream No growth. 09/05/24 21:23 Blood Culture - Final Blood - Venous Bacillus species Assessment and Plan (1) Acute epididymo-orchitis: Status: Acute Plan 34-year-old male with a past medical history of opiate dependence presented to the hospital with a chief complaint of testicular pain. Noted to have acute epididymo-orchitis. Acute epididymo-orchitis: improving, wbc jannette to 12, from 24 Scrotal ultrasound showedMarked hyperemia of the left testicle and epididymis with edema concerning for left orchitis/epididymitis. Color Doppler and arterial/venous spectral tracings of both testicles within normal limits. Continue ceftriaxone, doxycycline Pain control Seen by ID: Would treat with gram negative and possible atypical Would give IV Ceftriaxone and po Doxycycline for now. Probable po cephalosporin for two weeks and po Doxycycline outpatient 2-3 weeks outpatient. See Urology. Urology consult for further recommendations GC/Clamydia pending HypOkalemia, 3.1 KCL supplement, check labs Opioid dependent, no signs fo withdrawal continue methadone seen by addction med Opiate dependence: Patient on methadone maintenance program. Will defer to the day team to confirm and resume home methadone. Addiction medicine consult. Quality Stroke Does the patient have a stroke diagnosis?: No VTE Prior VTE?: No VTE Risk Level:: Medical - moderate - high VTE Device Contraindication: Treatment Not Indicated VTE Drug Contraindication: N/A - Med Ordered
[2024-09-08] MEDS: methADONE HCl 20 MG/2 ML ORAL.CONC 185 MG PO (08:08)
[2024-09-08 08:46] LABS: Hematocrit 36.5 % (42.0-52.0); Hemoglobin 12.3 g/dl (14.0-18.0); Mean Corpuscular HGB Conc 33.7 g/dl (31.0-36.0); Mean Corpuscular Hemoglobin 32.5 pg (27.0-33.0); Mean Corpuscular Volume 96.6 fL (80.0-98.0); NRBC Abs Auto 0.000 X10*3/uL (0.0-0.012); NRBC Pct Auto 0.0 /100WBC (0.0-0.2); Platelet Count 316 X10*3/uL (160-400); Red Blood Count 3.78 X10*6/uL (4.60-5.80); White Blood Count 9.5 X10*3/uL (4.8-10.8)
[2024-09-08 09:05] LABS: Anion Gap 12 (12-20); Blood Urea Nitrogen 8 mg/dL (9-16); Calcium 9.0 mg/dL (8.4-10.2); Carbon Dioxide 29 mmol/L (22-29); Chloride 101 mmol/L (96-108); Creatinine Clr Calc Pharmacy 142.5; Estimated Glomerular Filt Rate > 60; Potassium 3.9 mmol/L (3.3-5.1); Sodium 138 mmol/L (135-145)
[2024-09-08 09:53] LABS: CT PCR Urine NOT DETECTED (Not Detect.); NG PCR Urine NOT DETECTED (Not Detect.)
--- NOTE | 2024-09-08 11:26 | P.CNUR_ITS ---
History of Present Illness Consult details Consult date: 09/08/24 Narrative: Tung is a 34 year old male history of substance abuse disorder, admitted for left testicular pain, US scrotum c/w left epididimorchitis, no evidence for abscess. The patient has received IV Rochephin. ID has seen patient and recommended Abx coverage. WBC improving 24.5K to 9.5K. Recommend outpatient Urology followup. US scrotum--09/05/24--Marked hyperemia of the left testicle and epididymis with edema concerning for left orchitis/epididymitis. Review of Systems 2 Review of Systems: as per [facility] Past Medical History Medical History Seizures Family History Family history: reviewed and not pertinent Social History Social History Household Members: Other Housing: Homeless Alcohol intake: unknown Patient Tobacco Use Status: Current everyday Tobacco user Substance Use Type: Other Currently Displaying Signs/Symptoms of Drug Intoxication Withdrawal: No Advance Directives: No Advance Directives Information Provided: No Do you have a plan to hurt others: No Plan service: No Meds Allergies Allergy/AdvReac Type Severity Reaction Status Date / Time No Known Allergies (No Known Allergy Verified 09/05/24 20:24 Allergies*) Active Medications: Current Medications Acetaminophen (Acetaminophen 325 Mg Tablet) 650 mg PO Q6H PRN PRN Reason: Pain, Mild 1-3,fever,headache Calcium Carbonate (Calcium Carbonate 750 Mg Tab.Chew) 750 mg PO Q4H PRN PRN Reason: Heartburn Ceftriaxone Sodium (Ceftriaxone Sodium 1 Gm Vial) 1 gm IVPUSH Q24H [facility] Last Admin: 09/07/24 20:39 Dose: 1 gm Enoxaparin Sodium (Enoxaparin Sodium 40 Mg/0.4 Ml Syringe) 40 mg SUBCUT Q24H [facility] Last Admin: 09/07/24 22:12 Dose: 40 mg Hydromorphone HCl (Hydromorphone Hcl 0.5 Mg/0.5 Ml Syringe) 0.5 mg IVPUSH Q4H PRN; Protocol PRN Reason: Pain, Severe (Pain Scale 7-10) Last Admin: 09/08/24 07:37 Dose: 0.5 mg Doxycycline Hyclate 100 mg/ (Sodium Chloride) 250 mls @ 166.67 mls/hr IV Q12H [facility] Last Infusion: 09/08/24 11:10 Dose: Infused Magnesium Hydroxide (Milk Of Magnesia 30 Ml Oral.Susp) 30 ml PO DAILY PRN PRN Reason: Constipation Melatonin (Melatonin 3 Mg Tablet) 6 mg PO BEDTIME PRN PRN Reason: Insomnia Methadone HCl (Methadone Hcl 20 Mg/2 Ml Oral.Conc) 185 mg PO DAILY [facility] Last Admin: 09/08/24 08:08 Dose: 185 mg Sodium Chloride (0.9 % Sodium Chloride Flush 3 Ml Syringe) 3 ml IVFLUSH QSHIFT [facility] Last Admin: 09/08/24 07:39 Dose: 3 ml Home Medications ?Medication ?Instructions ?Recorded ?Confirmed ?Last Taken ?Type methadone 10 mg/mL oral concentrate 185 mg PO DAILY 09/06/24 09/05/24 History Physical Exam 2 Vital Signs: Vital Signs: Last Vital Signs Temp 97.8 F 09/08/24 07:48 Pulse 58 09/08/24 07:48 Resp 18 09/08/24 07:48 BP 146/80 H 09/08/24 07:48 Pulse Ox 97 09/08/24 07:48 O2 Del Method Room Air 09/08/24 07:48 BMI result Body Mass Index 21.8 Results Labs 09/08/24 08:03 09/08/24 08:03 Labs: Abnormal lab results 09/08/24 Range/Units 08:03 RBC 3.78 L (4.60-5.80) X10*6/uL Hgb 12.3 L (14.0-18.0) g/dl Hct 36.5 L (42.0-52.0) % BUN 8 L (9-16) mg/dL Short CBC 09/08/24 Range/Units 08:03 WBC 9.5 (4.8-10.8) X10*3/uL Hgb 12.3 L (14.0-18.0) g/dl Hct 36.5 L (42.0-52.0) % Plt Count 316 (160-400) X10*3/uL BMP 09/08/24 08:03 Sodium 138 Potassium 3.9 D Chloride 101 Carbon Dioxide 29 BUN 8 L Creatinine 0.62 Calcium 9.0 D Urine 07/02/25 Range/Units 20:36 Urine Color Dark Yellow Urine Appearance Cloudy Urine pH 5.0 (5.0-9.0) Ur Specific [place] 1.025 (1.005-1.025) Urine Protein 30 (1+) H (Neg-Trace) mg/dL Urine Glucose (UA) Negative (Negative) mg/dL All other labs normal. Imaging Additional studies: Date of Service: 09/05/24 CLINICAL HISTORY: left testicular pain US Scrotum with Doppler Comparison: None provided Findings: Right testicle normal echotexture, 3.9 x 1.7 x 2.7 cm, corresponds to a volume of 9.1 mL. Left testicle is enlarged measures 3.8 x 2.3 x 3.3 cm, corresponds to a volume of 15.2 mL. This marked hyperemia of the left testicle and epididymis. Color Doppler and arterial/venous spectral tracings of both testicles within normal limits. The right epididymis is within normal limits. No varicoceles. No hydroceles. IMPRESSION: Marked hyperemia of the left testicle and epididymis with edema concerning for left orchitis/epididymitis. Assessment and Plan (1) Acute epididymo-orchitis: Status: Acute Plan Patient is clinically improving. Antibiotics per ID (--Probable po cephalosporin for two weeks and po Doxycycline outpatient 2-3 weeks outpatient.) Urology- We see patient as an outpatient Procedures Date of Service Date of Service: 09/08/24
--- NOTE | 2024-09-08 11:51 | PM.DS ---
DS: Providers Provider Date of Service: 09/08/24 Date of admission: 09/05/24 23:34 Date of discharge: 09/08/24 Primary care physician: None Physician Consults: 09/05/24 22:34 Consult to Infectious Diseases Routine Consulting Provider: [facility] Reason for consultation: epididimoorchitis Consult to Urology Routine Consulting Provider: [facility] Urology Services Reason for consultation: epididimoorchitis 09/05/24 22:57 Addiction Medicine Provider Routine Consulting Provider: Addiction Covering Reason for consultation: Patient on methadone maintenance program. 09/06/24 13:28 Inpt - Recovery Team Routine Comment: Reason for consultation: JEREMIAS eval DS: Diagnosis Discharge Diagnosis (1) Acute epididymo-orchitis: Status: Acute DS: Summary Hospital Course Hospital Course: admission hpi Chief Complaint: Testicular pain 34-year-old male with a past medical history of opiate dependence presented to the hospital with a chief complaint of testicular pain. Patient reports that for the past 2 days he has been having pain in his left testicle with swelling hence brought into the ER for further evaluation. Denies any trauma or injury. Denies any chest pain or palpitations. Denies any fevers and chills. Denies any urinary symptoms. Review of all other systems is negative except mentioned above ER course: Per ER team, patient noted to have swollen testicle; ultrasound showed findings concerning for epididymal orchitis. No evidence of torsion. Given antibiotics. Hospital coruse: Patient was admitted and treated with IV ceftriaxone and docycyline, WBC initially 24 has dropped gradually down and now 9.5, he has no fever, still hs some pain and swelling but better. ID has seen him and recommend transitioning to oral cephalosporin for 2 week and doxycyline 2 to 3 weeks. Urology recommend outpatient follow up. Time Attestation Discharge Coordination Time (in mins): 35 Quality: Safe Use of Opioids Does Pt have an Active Cancer Diagnosis on the Problem List?: No Quality: Stroke Does the patient have a stroke diagnosis?: No Physical Exam Vital Signs: Vital Signs: Last Vital Signs Temp 97.8 F 09/08/24 07:48 Pulse 58 09/08/24 07:48 Resp 18 09/08/24 07:48 BP 146/80 H 09/08/24 07:48 Pulse Ox 97 09/08/24 07:48 O2 Del Method Room Air 09/08/24 07:48 BMI result Body Mass Index 21.8 DS: Data Data Completed and Pending Labs on day of discharge: Laboratory Results - last 24 hr 09/07/24 09/08/24 21:00 08:03 WBC 9.5 RBC 3.78 L Hgb 12.3 L Hct 36.5 L MCV 96.6 MCH 32.5 MCHC 33.7 RDW 12.1 Plt Count 316 MPV 9.8 Absolute Nucleated RBC 0.000 Nucleated RBC % (auto) 0.0 Sodium 138 Potassium 3.9 D Chloride 101 Carbon Dioxide 29 Anion Gap 12 BUN 8 L Creatinine 0.62 Estim Creat Clear Calc 142.5 Estimated GFR > 60 Random Glucose 110 Calcium 9.0 D Ur N gonorrhoeae DNA (PCR) NOT DETECTED Ur Chlamydia DNA (PCR) NOT DETECTED Preliminary micro results at discharge 09/05/24 21:23 Blood Culture - Preliminary Blood - Venous No growth after 48 hours. Discharge Plan Discharge Anticipated Discharge Date/Time: 09/08/24 11:44 Patient Disposition: Home, Self-Care Discharge Diagnosis: Acute Epipidymo-Orchitis Referrals: Yaakov Albarran MD [Physician, Urology] - 1 Week Physician,None [Primary Care Provider, Medical] - 1 Week Discharge Medications: New cefuroxime axetil 500 mg tablet 500 mg PO BID 12 Days Qty: 24 0RF doxycycline hyclate 100 mg tablet 100 mg PO BID 19 Days Qty: 38 0RF oxycodone 5 mg Tablet 5 mg PO Q6H PRN (Reason: Pain, Moderate(Pain Scale 4-6)) Qty: 12 0RF Rx Instructions: Partial Fill upon patient request. Continued methadone 10 mg/mL Concentrate 185 mg PO DAILY Discharge Orders: Discharge Order (Routine); Ordered 09/08/24 Ordered By: Hayden London Diet: Advance to usual diet Activity on Discharge: As tolerated Stand Alone Forms: Patient Portal Discharge page Print Language: Greenlandic Care Plan Goals: recovery from epididymo-orchitis Health Concerns: epididymo-orchitis Plan of Treatment: Take Cefuroxime and Doxycyline as recommended Follow up with urology office, office will call you call your primary office and arrange for follw up visit Assessment: see above Patient Instructions: Epididymo-Orchitis (GEN) Discharge Date/Time: 09/08/24 13:16
[2024-09-08 12:51] VITALS: BP 141/98; PULSE 58; RESP 18; TEMP 36.5; O2SAT 98
--- NOTE | 2024-09-08 13:10 | MHC.CM.PN ---
PT CLEARED TO [place] TODAY, HE HAS DECLINED [facility] REFERRAL AND WILL RETURN TO THE STREET HE WAS INFORMED THE BUS DOES NOT GO BY [facility] ON THE [address] SO AGREES TO A LYFT TO [facility] IN [place]
== END 2024-09-08 13:16 | disposition home or self-care (01) | DRG 501 ==
LOC: HO.ED 22:46 → HO.EDOVER 09-06 00:25 → HO.IMC 09-06 00:39 → HO.S3 09-07 21:45
PROVIDERS: Physician Assistant; Admitting Provider Hospitalist; Emergency Provider Internal Medicine; Visit Provider Internal Medicine
DX: N45.3 Epididymo-orchitis (principal); E87.6 Hypokalemia; F17.210 Nicotine dependence, cigarettes, uncomplicated; Z71.6 Tobacco abuse counseling
CPT/HCPCS: 36415; 76870; 80048; 81001; 83605; 85025; 85027; 86631; 86632; 87040; 87086; 87205; 87491; 87591; 93975; 99285; J0696; J1171; J1271; J1650; J7120

== ENCOUNTER → 2024-09-05 20:20 | Outpatient (BNV) | payer MEDICAID, SELFPAY | PROVIDERS: Emergency Provider Internal Medicine; Visit Provider Student in an Organized Health Care Education/Training Program | DX: N45.3 Epididymo-orchitis (principal) | CPT/HCPCS: 76870; 93975 ==

== ENCOUNTER → 2024-09-05 23:34 | Outpatient (BNV) | payer MEDICAID, SELFPAY | PROVIDERS: Admitting Provider Hospitalist; Emergency Provider Internal Medicine; Visit Provider Internal Medicine | DX: N45.3 Epididymo-orchitis (principal) | CPT/HCPCS: 99222; 99499 ==

== ENCOUNTER → 2024-09-05 23:34 | Outpatient (BNV) | payer MEDICAID, SELFPAY | PROVIDERS: Admitting Provider Hospitalist; Emergency Provider Internal Medicine; Visit Provider Urology | DX: N45.3 Epididymo-orchitis (principal) | CPT/HCPCS: 99222 ==

== ENCOUNTER → 2024-09-05 23:34 | Outpatient (BNV) | payer OTHER, SELFPAY | PROVIDERS: Admitting Provider Hospitalist; Emergency Provider Internal Medicine; Visit Provider Nurse Practitioner Psychiatric/Mental Health | DX: F11.90 Opioid use, unspecified, uncomplicated (principal) | CPT/HCPCS: 99221 ==

== ENCOUNTER → 2024-09-05 23:34 | Outpatient (BNV) | payer MEDICAID, SELFPAY | PROVIDERS: Admitting Provider Hospitalist; Emergency Provider Internal Medicine; Visit Provider Internal Medicine | DX: N45.3 Epididymo-orchitis (principal) | CPT/HCPCS: 99223; 99232; 99239 ==

== ENCOUNTER 2024-09-27 17:29 | Emergency (ER) | payer MEDICAID, SELFPAY ==
--- NOTE | ~2024-09-27 | XR_ITS ---
CLINICAL HISTORY: pain 3 view right foot Comparison: None provided Findings: There are multiple chronic appearing ossific bodies projecting anterior to the talonavicular joint on the lateral view. There are chronic appearing defect associated with the medial and lateral sesamoids which could be congenital or secondary to prior injury. No acute fracture. No dislocation. No significant arthritic change or erosions. No ankle effusion. No radiopaque foreign body. IMPRESSION: No acute bony abnormality. Chronic findings as above. This document has been electronically signed by: Desiree Stein MD on 09/27/2024 19:01:30
--- NOTE | ~2024-09-27 | XR_ITS ---
CLINICAL HISTORY: pain 3 view right ankle Comparison: None provided Findings: Multiple chronic appearing ossific bodies projecting anterior to the talonavicular joint on the lateral view. No acute fracture. No dislocation. No significant arthritic change or erosions. No ankle effusion. No radiopaque foreign body. IMPRESSION: 1. No acute findings. This document has been electronically signed by: Desiree Stein MD on 09/27/2024 19:01:58
[2024-09-27 18:11] VITALS: BP 123/79; PULSE 81; RESP 16; TEMP 36.9; O2SAT 98; BMI 21.0
--- NOTE | 2024-09-27 18:19 | ED.LOWEXIN ---
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 with chronic ankle pain and food pain comes here for similar pain sleeping on arrival x-ray were done which were negative no recent injury Related Data Home Medications ?Medication ?Instructions ?Recorded ?Confirmed methadone 10 mg/mL oral concentrate 185 mg PO DAILY 09/06/24 09/06/24 Previous Rx's ?Medication ?Instructions ?Recorded cefuroxime axetil 500 mg tablet 500 mg PO BID 12 days #24 tabs 09/08/24 doxycycline hyclate 100 mg tablet 100 mg PO BID 19 days #38 tabs 09/08/24 oxycodone 5 mg tablet 5 mg PO Q6H PRN Pain, 09/08/24 Moderate(Pain Scale 4-6) #12 tabs Allergies Allergy/AdvReac Type Severity Reaction Status Date / Time No Known Allergies (No Known Allergy Verified 09/27/24 18:12 Allergies*) Review of Systems Review of Systems: Yes all other systems are reviewed and are negative PMFSH Past Medical History Medical History Seizures Social History Social History Household Members: Other Housing: Homeless Alcohol intake: unknown Patient Tobacco Use Status: Current everyday Tobacco user Substance Use Type: Other Advance Directives: No Advance Directives Information Provided: No service: No Physical Exam Vital Signs: Vital Signs: Last Vital Signs Temp 98.7 F 09/27/24 23:01 Pulse 66 09/27/24 23:01 Resp 16 09/27/24 23:01 BP 155/85 H 09/27/24 23:01 Pulse Ox 99 09/27/24 23:01 O2 Del Method Room Air 09/27/24 23:01 BMI result Body Mass Index 21.0 Appearance: Alert. Oriented X3. No acute distress. Eyes: no pallor or icterus ENT: Pharynx normal Oral Mucosa moist tympanic membrane intact no erythema, Neck: Normal inspection. Neck supple. CVS: Normal heart rate and rhythm. Pulses normal. Respiratory: No respiratory distress. Equal air entry bilateral, no wheezing/rales/rhonchi Abd: soft, not tender Skin: Skin warm and dry. Normal skin color. Normal skin turgor. Extremities: No lower extremity edema, no calf tenderness bilateral diffuse tenderness in both ankles no significant swelling no bony deformity Neuro: Oriented X 3. Course Course Course Narrative: This is an RME: Additional HPI, ROS, PE not included below will be deferred to primary provider. RME assessment and note performed by: Anai Ballesteros PA-C This is a 34-year-old male who presents emergency department with complaints of right ankle pain/foot pain for the last 2 days. Atraumatic. He states history of ankle and foot problems in the past. No fevers or chills. Unable to bear weight on ankle. Achilles tendon is intact. Plan: X-rays, further ER evaluation needed. Medical Decision Making Medical Decision Making [facility] Narrative: Patient has chronic ankle feet pain as he stands for hours has a marino handler advised take Tylenol/Motrin for pain and avoid standing for hours x-ray negative for fracture Independent Interpretation I performed an independent interpretation of an: Plain X-Ray Discharge Plan Discharge Clinical Impression: Ankle sprain and strain Patient Disposition: Home, Self-Care Instructions: Ankle Sprain (DC) Additional Instructions: Avoid standing for long Tylenol/Motrin for pain Prescriptions: No Action methadone 10 mg/mL Concentrate 185 mg PO DAILY cefuroxime axetil 500 mg tablet 500 mg PO BID 12 Days Qty: 24 0RF doxycycline hyclate 100 mg tablet 100 mg PO BID 19 Days Qty: 38 0RF oxycodone 5 mg Tablet 5 mg PO Q6H PRN (Reason: Pain, Moderate(Pain Scale 4-6)) Qty: 12 0RF Rx Instructions: Partial Fill upon patient request. Print Language: Kosovan
[2024-09-27 23:01] VITALS: BP 155/85; PULSE 66; RESP 16; TEMP 37.1; O2SAT 99
--- OUTSIDE RECORDS SUMMARY | 2024-09-27 23:42 | XMS_ITS | Clinical Summary ---
Author Organization [employer] Address [address] [place] [address] Care Team Providers Care Dyeing Machine Feeder Name Role Phone Unavailable Primary Care Provider [...] Tobacco Screening 2000 Family Planning (PISQ) 07/23/2003 HPV Vaccines (1 - Male 3-dos e series) 07/23/2003 Hepatitis C Screening 2006 DTaP/Tdap/Td Vaccines (1 - Tdap) 07/23/2007 Hepatitis B Vaccines (1 of 3 - 19+ 3-dose series) 07/23/2007 COVID-19 Vaccine (1 - 2023-2 5 season) 2023 Influenza Vaccine (#1) 2024 Zoster Vaccines (1 of 2) 2038 [...]
[2024-09-28 01:09] VITALS: BP 119/87; PULSE 70; RESP 16; TEMP 37; O2SAT 98
[2024-09-28 01:44] VITALS: BP 119/87; PULSE 70; RESP 16; TEMP 37; O2SAT 98
== END 2024-09-28 01:45 | disposition home or self-care (01) ==
PROVIDERS: Emergency Provider Internal Medicine
DX: S93.401A Sprain of unspecified ligament of right ankle, initial encounter (principal); S96.911A Strain of unspecified muscle and tendon at ankle and foot level, right foot, initial encounter; X50.1XXA Overexertion from prolonged static or awkward postures, initial encounter; Y93.89 Activity, other specified; Y92.488 Other paved roadways as the place of occurrence of the external cause; Y99.8 Other external cause status; Z72.0 Tobacco use; Z59.00 Homelessness unspecified
CPT/HCPCS: 73610; 73630; 99283

== ENCOUNTER → 2024-09-27 18:20 | Outpatient (BNV) | payer MEDICAID, SELFPAY | PROVIDERS: Visit Provider Radiology Diagnostic Radiology | DX: M25.571 Pain in right ankle and joints of right foot (principal); M79.671 Pain in right foot | CPT/HCPCS: 73610; 73630 ==

== ENCOUNTER 2024-09-28 17:49 | Inpatient (IN) | payer MEDICAID, SELFPAY ==
--- NOTE | ~2024-09-28 | US_ITS ---
CLINICAL HISTORY: pain Venous duplex ultrasound right lower extremity Comparison: None provided Findings: The visualized deep veins are fully compressible with normal Doppler color flow and spectral tracings. No popliteal cyst. IMPRESSION: 1. Negative for right lower extremity deep vein thrombosis. This document has been electronically signed by: Michaela Person MD on 09/28/2024 20:09:07
--- NOTE | ~2024-09-28 | CT_ITS ---
CLINICAL HISTORY: pain --- Additional Notes or Special Instructions: R dorsolateral foot collection on US, s p needle aspiration CT of the right foot with contrast. Comparison: Right foot radiograph 09/27/2024 Findings: No acute fracture or subluxation. Moderate right foot ankle osteoarthritis. Increased attenuation throughout overlying soft tissues. Suggestion of developing phlegmon versus fluid collection measuring 2.6 x 1.9 x 1.6 cm (series 3, image 167 and series 9, image 76 ) within subcutaneous soft tissues overlying the plantar aspect of the calcaneus along the lateral margin. Impression: 1. Suspected phlegmon versus developing fluid collection measuring 2.6 x 1.9 x 1.6 cm within subcutaneous soft tissues overlying plantar aspect of the calcaneus along the lateral margin. 2. Associated soft tissue edema versus cellulitis. 3. Additional findings as above. This document has been electronically signed by: Michaela Person MD on 09/29/2024 01:43:32
[2024-09-28 18:03] VITALS: BP 118/84; PULSE 118; O2SAT 96
[2024-09-28 18:14] VITALS: BP 103/68; PULSE 109; RESP 16; TEMP 37.1; O2SAT 96; BMI 21.8
--- NOTE | 2024-09-28 18:19 | ED_ITS ---
HPI - General Adult General Chief complaint: Extremity Injury, Lower Stated complaint: R lower leg pain/swelling Time Seen by Provider: 09/28/24 21:08 History of Present Illness ED Provider: Salvador Jerome MD HPI narrative: 34 year-old male who denies significant medical history was evaluated last night for what he reported was foot pain without injury now back for worsening pain swelling tenderness inability to bear weight. He says he has a remote history of intravenous drug use not in years. Can not think of any insect bite or other trauma to the area. Denies fever feels he can not flex the ankle. No history of gout or other arthropathy Related Data Home Medications ?Medication ?Instructions ?Recorded ?Confirmed methadone 10 mg/mL oral concentrate 185 mg PO DAILY 09/06/24 Previous Rx's ?Medication ?Instructions ?Recorded cefuroxime axetil 500 mg tablet 500 mg PO BID 12 days #24 tabs 09/08/24 doxycycline hyclate 100 mg tablet 100 mg PO BID 19 day s #38 tabs 09/08/24 oxycodone 5 mg tablet 5 mg PO Q6H PRN Pain, Moderate(Pain Scale 4-6) #12 tabs doxycycline hyclate 100 mg tablet 100 mg PO BID 10 day s #20 tabs 09/28/24 prednisone 50 mg tablet 50 mg PO DAILY 3 days #3 tab s 09/28/24 Allergies Allergy/AdvReac Type Severity Reaction Status Date / Time No Known Allergies (No Known Allergy Verified 09/28/24 18:17 Allergies*) [facility] Past Medical History Medical History IV drug abuse Alcohol dependence Seizures Social History Social History (Updated 09/29/24 @ 02:21 by NATIVIDAD Thompson) Household Members: Other Housing: Homeless Alcohol intake: current Comment: At least 240 oz beers per day Patient Tobacco Use Status: Never used Tobacco Smoked in Last 30 Days: No Use of substances other than those prescribed or required for medical reasons: Yes Substance Use Type: IV Drugs and Other Substance Use Frequency: Weekly Substance Use Frequency Other:: 1-2 times per week Advance Directives: No Advance Directives Information Provided: No Do you have a plan to hurt others: No Plan Nutrition Risks: No Nutritional Risk service: No Physical Exam ED Exam Exam: EXAM: Gen: Alert, awake, well appearing, well hydrated. Unkempt/disheveled Head: Atraumatic Eyes: Anicteric, Normal conjunctiva. ENT: Moist mucosa, no pallor. ? Neck: Supple. Skin: ?No observable rash or bruising on exposed or examined skin see MSK for foot skin : No flank tenderness. Neuro: Alert. Gross movement of all extremities intact. ? Psych: Calm. Cooperative. MSK: Right lower extremity: Right foot exquisitely tender over the proximal dorsal lateral foot with redness slight warmth. Digits well-perfused no obvious deformity of the ankle or foot. Limited flexion-extension of the ankle due to pain in the foot but no palpable swelling effusion or bony tenderness of the ankle bones. No obvious track servin or trauma to the foot Vital signs: See flowsheet Vital Signs: Vital Signs - 24 hr 09/28/24 18:14 09/28/24 21:20 09/28/24 22:29 Temperature 98.8 F 98.3 F 98.3 F Pulse Rate 109 H 99 91 Respiratory Rate 16 16 16 Blood Pressure 103/68 132/73 129/68 Pulse Oximetry 96 97 98 Oxygen Delivery Method Room Air Room Air Room Air 09/28/24 23:39 09/29/24 00:47 Temperature 98.3 F 98.5 F Pulse Rate 91 82 Respiratory Rate 16 18 Blood Pressure 129/68 127/77 Pulse Oximetry 98 98 Oxygen Delivery Method Room Air Room Air BMI result Body Mass Index 21.8 Course Course Course Narrative: RME, this is a rapid medical exam performed by Fernando Ramirez please refer to primary provider for complete H&P- 34-year-old male presents for evaluation of right ankle pain and swelling. He was seen here yesterday and had x-rays. He reports he is unable to walk but was discharged with crutches. Plan for ultrasound to rule out DVT. Medications Administered Discontinued Medications Generic Name Dose Route Start Last Admin Trade Name Freq PRN Reason Stop Dose Admin Acetaminophen 650 mg 09/28/24 21:51 09/28/24 22:20 Acetaminophen 325 Mg Tablet PO 09/28/24 21:52 650 mg ONCE ONE Administration Ceftriaxone Sodium 2 gm 09/28/24 23:51 09/29/24 00:26 Ceftriaxone Sodium 2 Gm Vial IVPUSH 09/28/24 23:52 2 gm ONCE ONE Administration Hydromorphone HCl 0.5 mg 09/29/24 01:05 09/29/24 01:16 Hydromorphone Hcl 0.5 Mg/0.5 Ml Syringe IVPUSH 09/29/24 01:06 0.5 mg ONCE ONE Administration Protocol Vancomycin HCl 1,500 mg/ 500 mls @ 333.333 mls/hr 09/28/24 23:51 09/29/24 02:20 Sodium Chloride IV 09/29/24 01:20 Infused ONCE ONE Infusion Iohexol 85 ml 09/29/24 00:49 09/29/24 00:50 Iohexol 350 Mg/Ml 100 Ml Infus..Btl IV 09/29/24 00:50 85 ml ONCE ONE Administration Ketorolac Tromethamine 15 mg 09/28/24 21:51 09/28/24 22:20 Ketorolac Tromethamine 15 Mg/Ml Vial IVPUSH 09/28/24 21:52 15 mg ONCE ONE Administration Procedures Procedure Narrative Procedure Narrative: EMERGENCY ULTRASOUND INTERPRETATION- Limited Musculoskeletal [This study was ordered, performed, and interpreted by myself. The study reveals: Impression: Dorsal foot deep space collection. [Indication: Redness swelling in the foot Joint Localization for fluid (anechoic): Muscle: Tendon: No obvious tendon sheath involvement Bone: Hyperechoic material consistent with x-ray findings of chronic possible degenerative or arthritic changes Other: Performed by: Salvador Jerome MD Images were stored ] Abscess I/D Site: foot Side (if applicable): right Technique: needle aspiration Amount of fluid expressed (mL): 3 Sent for culture/gram staining?: Yes Irrigation: No Packing used?: none Complications: pain Medical Decision Making Medical Decision Making MDM Narrative: Medical Decision Makin-year-old male reports prior IV drug use years ago but denies current drug use. He is homeless and this is a 2nd visit for right foot pain without traumatic injury. He denies insect bite, trauma, or history of arthritis or arthropathy. He is unable to bear weight on the foot today x-ray was done last night with chronic changes in the midfoot. Denies swelling up the leg or other constitutional symptoms. Pain is quite severe and localized with exquisite tenderness in the dorsal lateral forefoot. Minimal swelling noted there but ultrasound revealed deep space collection. I do not see evidence of ankle effusion and this is unlikely to be ankle septic arthritis though this was considered. Needle aspiration of the fluid collection which was yellowish and purulent sent for culture. Broad-spectrum antibiotics. Lactate 2.1. No hemodynamic instability or severe sepsis criteria. Blood cultures drawn. Preliminary Favored Differential Diagnosis: Cellulitis, ankle sprain, tarsal joint gout, deep space foot infection, among additional considered etiologies Testing Interpreted Independently: See point of care ultrasound musculoskeletal right foot report above Radiology or Lab testing Results Reviewed: Noted CT report below this is not where the patient is pain and tenderness in his Impression: 1. Suspected phlegmon versus developing fluid collection measuring 2.6 x 1.9 x 1.6 cm within subcutaneous soft tissues overlying plantar aspect of the calcaneus along the lateral margin. 2. Associated soft tissue edema versus cellulitis. 3. Additional findings as above. Consults: Not Applicable Independent Historians/External Chart Reviews: Not Applicable Social Determinants of Health Impacting MDM/Planning: Not Applicable Lab Data 09/28/24 22:07 09/28/24 22:08 Labs: Lab Results 09/28/24 09/28/24 09/29/24 Range/Units 22:07 22:08 00:19 WBC 6.1 (4.8-10.8) X10*3/uL RBC 3.57 L (4.60-5.80) X10*6/uL Hgb 11.6 L (14.0-18.0) g/dl Hct 33.1 L (42.0-52.0) % MCV 92.7 (80.0-98.0) fL MCH 32.5 (27.0-33.0) pg MCHC 35.0 (31.0-36.0) g/dl RDW 12.2 (11.0-16.0) % Plt Count 220 D (160-400) X10*3/uL MPV 9.2 L (9.4-12.4) fL Immature Gran % (Auto) 1.1 H (0.0-0.4) % Neut % (Auto) 40.0 L (45-73) % Lymph % (Auto) 46.6 H (20-40) % [place] % (Auto) 10.7 (2-11) % Eos % (Auto) 1.3 (0-4) % Baso % (Auto) 0.3 (0-2) % Lymph # (Auto) 2.9 (1.2-4.9) X10*3/uL [place] # (Auto) 0.7 (0.1-1.2) X10*3/uL Eos # (Auto) 0.1 (0.0-0.4) X10*3/uL Baso # (Auto) 0.0 (0.0-0.2) X10*3/uL Abs Immat Gran (auto) 0.07 H (0.00-0.03) X10*3/uL Absolute Neuts (auto) 2.5 (2.0-8.3) x10*3/uL Absolute Nucleated RBC 0.000 (0.0-0.012) X10*3/uL Nucleated RBC % (auto) 0.0 (0.0-0.2) /100WBC ESR 53 H (0-15) MM/HR Sodium 136 (135-145) mmol/L Potassium 3.4 (3.3-5.1) mmol/L Chloride 103 (96-108) mmol/L Carbon Dioxide 23 (22-29) mmol/L Anion Gap 13 (12-20) BUN 11 (9-16) mg/dL Creatinine 0.74 (0.5-1.4) mg/dL Estim Creat Clear Calc 119.5 Estimated GFR > 60 Random Glucose 107 (60-115) mg/dL Lactic Acid 2.2 H* (0.5-2.0) mmol/L Lactic Acid F/U @ 2Hr 1.6 (0.5-2.0) mmol/L Uric Acid 4.6 (3.4-7.0) mg/dL Calcium 8.5 (8.4-10.2) mg/dL C-Reactive Protein 4.37 H (< or = 0.50) mg/dL Discharge Plan Discharge Clinical Impression: Cellulitis of foot Patient Disposition: Home, Self-Care Interventions: ED Discharge Assessment Last Done: 09/28/24 23:39
[2024-09-28 21:20] VITALS: BP 132/73; PULSE 99; RESP 16; TEMP 36.8; O2SAT 97
[2024-09-28 22:14] LABS: MANUAL DIFF FLAG NO
[2024-09-28 22:16] LABS: White Blood Count 6.1 X10*3/uL (4.8-10.8)
[2024-09-28 22:17] LABS: Hematocrit 33.1 % (42.0-52.0); Hemoglobin 11.6 g/dl (14.0-18.0); Imm Gran Abs Auto 0.07 X10*3/uL (0.00-0.03); Imm Gran Pct Auto 1.1 % (0.0-0.4); Lymphocytes Absolute Auto 2.9 X10*3/uL (1.2-4.9); Mean Corpuscular HGB Conc 35.0 g/dl (31.0-36.0); Mean Corpuscular Hemoglobin 32.5 pg (27.0-33.0); Mean Corpuscular Volume 92.7 fL (80.0-98.0); NRBC Abs Auto 0.000 X10*3/uL (0.0-0.012); NRBC Pct Auto 0.0 /100WBC (0.0-0.2); Platelet Count 220 X10*3/uL (160-400); Red Blood Count 3.57 X10*6/uL (4.60-5.80)
[2024-09-28 22:29] VITALS: BP 129/68; PULSE 91; RESP 16; TEMP 36.8; O2SAT 98
[2024-09-28 22:32] LABS: Anion Gap 13 (12-20); Blood Urea Nitrogen 11 mg/dL (9-16); Calcium 8.5 mg/dL (8.4-10.2); Carbon Dioxide 23 mmol/L (22-29); Chloride 103 mmol/L (96-108); Creatinine Clr Calc Pharmacy 119.5; Estimated Glomerular Filt Rate > 60; Potassium 3.4 mmol/L (3.3-5.1); Sodium 136 mmol/L (135-145); Uric Acid 4.6 mg/dL (3.4-7.0)
[2024-09-28 23:39] VITALS: BP 129/68; PULSE 91; RESP 16; TEMP 36.8; O2SAT 98
[2024-09-29] VITALS (8 sets, daily range): BP systolic 125–149; BP diastolic 60–95; PULSE 56–85; RESP 14–18; TEMP 36.4–37.1; O2SAT 98–100; BMI 17.3
--- NOTE | 2024-09-29 00:02 | PC.NURSE ---
pt originally up for discharge but now currently pending CT to be completed at this time d/t most recent needle aspiration results via right foot completed by MD. mendoza bedside obtaining cultures x 2 at this time. pt otherwise in no apparent distress. no sob/wob noted. respirations even/unlabored. plan of care ongoing. call [facility] placed within reach.
[2024-09-29 00:13] LABS: Reflex Lactate? Lactic Acid Added
--- NOTE | 2024-09-29 00:29 | PC.NURSE ---
abx infusing per provider order.
[2024-09-29 00:39] LABS: ~Lactic Acid-LAB USE ONLY 1.6 mmol/L (0.5-2.0)
[2024-09-29] MEDS: iohexoL 350 MG/ML 100 ML INFUS..BTL 85 ML IV (00:50)
--- NOTE | 2024-09-29 01:18 | P.HPHOSP_ITS ---
History of Present Illness Date of Service: 09/29/24 Attending physician on admission: Amita Jean Chief Complaint: r ankle swelling Patient is a 34-year-old male with past medical history substance use disorder on methadone, IV drug abuse, ETOH abuse with history of seizures, hepatitis-C, , COVID, corneal abrasion, depression, recent epididymitis left testicle, presents to the emergency department with complaints of increasing right ankle pain and swelling. Patient was seen in the emergency department yesterday and workup was negative for osteomyelitis or sprain/fracture of the involved ankle/foot via Xray, negative for DVT via doppler and clinical examination. Today pt states he was given crutches yesterday because he could no longer bear weight on the affected foot. Patient continues to use crutches and states it is very painful to touch the affected area of the right ankle. Patient states the swelling has increased with noted warmth. Patient denies any fever or chills or nausea or vomiting. Patient denies any chest pain, shortness of breath at rest or with exertion. Patient is not having any headaches or visual changes. Patient denies any diarrhea as well. Patient states he was treated for epididymitis early September and he has healed completely and did complete his antibiotics for that diagnosis. CT of the foot was done in the emergency department in indicates phlegmon versus developing fluid collection measuring 2.6 x 1.9 x 1.6 cm with subcutaneous soft tissues overlying plantar aspect of the calcaneus along the lateral margin which coincides with clinical examination. Patient does have extensive swelling throughout the upper mid ankle area through the heel. There is warmth noted with erythema. The ED provider was able to aspirate cloudy fluid from the affected area. Samples were sent for culture. CRP and sed rate are both elevated. Patient does not have a leukocytosis. Lactic acid 2.2 and after fluids down to 1.6. Patient does not meet the criteria for sepsis at this time. Uric acid level normal. Patient initially started on vancomycin and ceftriaxone. Patient denies using affected foot for IV drug use. Patient only injects IV drugs into the right arm via the antecubital vein. Patient is currently on methadone and following with an outpatient clinic. Patient states he used to use 2-3 bags per day and is now injecting 1-2 times per week. Patient is currently homeless, living in the [facility]. Patient does not walk barefoot. Patient does have obvious mosquito bites that have been scratched but patient denies any bites to the affected foot. Patient will start vancomycin and now Zosyn to cover anaerobes. Patient's last alcoholic drink was an hour prior to coming into the emergency room. Patient denies history of withdrawal. Patient does have history of seizures but he is not sure if it is related to alcohol withdrawal in the past. Patient is not on any antiseizure medication at this time. Patient does not recall having a recent seizure. Patient normally drinks at least 2, 40 oz beers per day. Patient is currently homeless but does hold a full-time job. Patient is worried about losing his job because he can not ambulate. Patient is interested in getting help on finding a place to live. Patient does state he does like to be in nature but he is not able to bathe often and has no access to rest rooms on a regular basis. Patient also does not have a primary care provider and is interested in finding one. Review of Systems 2 Review of Systems: Patient describes pain with limited range of motion and inability to bear weight on the affected right foot/ankle. Patient denies any chest pain, shortness of breath at rest or with exertion, nausea or vomiting. Patient is not having any chills or fever or night sweats. Patient feels he has been under weight and sometimes has a lunate access to food. Patient is currently working. Yes all other systems are reviewed and are negative [facility] Medical History IV drug abuse Alcohol dependence Seizures Functional capacity: uses cane/walker (crutches ) Social History (Updated 09/29/24 @ 02:21 by NATIVIDAD Thompson) Household Members: Other Housing: Homeless Alcohol intake: current Comment: At least 240 oz beers per day Patient Tobacco Use Status: Never used Tobacco Smoked in Last 30 Days: No Use of substances other than those prescribed or required for medical reasons: Yes Substance Use Type: IV Drugs and Other Substance Use Frequency: Weekly Substance Use Frequency Other:: 1-2 times per week Advance Directives: No Advance Directives Information Provided: No Do you have a plan to hurt others: No Plan Nutrition Risks: No Nutritional Risk service: No Ebola Risk: Travel/Contact With Anyone From Affected Area/s: No Has Patient Experienced Ebola Symptoms: No Meds Allergies Allergy/AdvReac Type Severity Reaction Status Date / Time No Known Allergies (No Known Allergy Verified 09/28/24 18:17 Allergies*) Active Medications: Current Medications Acetaminophen (Acetaminophen 325 Mg Tablet) 650 mg PO Q6H PRN PRN Reason: Pain, Mild 1-3,fever,headache Albuterol/Ipratropium (Albuterol/Iprat 2.5/0.5mg 3 Ml Ampul.Neb) 3 ml INHALE Q4H PRN PRN Reason: Shortness of Breath/Wheezing Calcium Carbonate (Calcium Carbonate 750 Mg Tab.Chew) 750 mg PO Q4H PRN PRN Reason: Heartburn Ceftriaxone Sodium (Ceftriaxone Sodium 2 Gm Vial) 2 gm IVPUSH Q24H RAHCELLE Enoxaparin Sodium (Enoxaparin Sodium 40 Mg/0.4 Ml Syringe) 40 mg SUBCUT Q24H RACHELLE Vancomycin HCl 1,500 mg/ (Sodium Chloride) 500 mls @ 333.333 mls/hr IV ONCE ONE Stop: 09/29/24 01:20 Last Admin: 09/29/24 00:27 Dose: 333.33 mls/hr Magnesium Hydroxide (Milk Of Magnesia 30 Ml Oral.Susp) 30 ml PO DAILY PRN PRN Reason: Constipation Melatonin (Melatonin 3 Mg Tablet) 6 mg PO BEDTIME PRN PRN Reason: Insomnia Ondansetron HCl (Ondansetron Hcl 4 Mg/2 Ml Vial) 4 mg IVPUSH Q8H PRN PRN Reason: Nausea and Vomiting Pharmacy Consult (Consult Rx Vancomycin Dosing) 1 each MISCELLANE DAILY PRN PRN Reason: Consult order Pharmacy Consult (Consult Rx Vancomycin Dosing) 1 each MISCELLANE DAILY PRN PRN Reason: Consult order Sodium Chloride (0.9 % Sodium Chloride Flush 3 Ml Syringe) 3 [facility] Medications ?Medication ?Instructions ?Recorded ?Confirmed ?Last Taken ?Type methadone 10 mg/mL oral concentrate 185 mg PO DAILY 09/06/24 09/05/24 History Physical Exam 2 Vital Signs and Narrative: Vital Signs: Last Vital Signs Temp 98.5 F 09/29/24 00:47 Pulse 82 09/29/24 00:47 Resp 18 09/29/24 00:47 BP 127/77 09/29/24 00:47 Pulse Ox 98 09/29/24 00:47 O2 Del Method Room Air 09/29/24 00:47 BMI result Body Mass Index 21.8 Alert and orientated X3, able to give good history. Patient presents unkempt, has not showered in some time Neuro: CN II-X11 intact, no deficits, visual acuity intact EYES: PERRLA, EOM intact, sclerae nonicteric, conjunctiva pink ENT: hearing intact, no issues with swallowing, uvula midline, lips moist, nares patent no epistaxis Cardiac: S1 S2 RRR, no murmur, no JVD, no edema in L Lower ext, moderate edema R ankle Pulmonary: lungs clear to auscultation B Abdominal: BS active in all 4 quadrants, no guarding, tenderness, rebounding MSK: strength 5/5 upper and L lower extremities, pt is not able to extend or dorsiflex R ankle : no CVA tenderness no bladder distension Extremities: moderate edema in R lower extremity with redness and warmth, PT and DP pulses palpable +2 Psych: mood stable, judgement and insight good Skin: cellulitic changes noted to R ankle, CT positive for phelgmon vs fluid collection in R ankle Mosquito bites healing in BLE's track servin noted RUE Results Labs 09/28/24 22:07 09/28/24 22:08 Labs: Laboratory Results - last 24 hr 09/28/24 09/28/24 09/29/24 22:07 22:08 00:19 MCV 92.7 MCH 32.5 MCHC 35.0 RDW 12.2 Plt Count 220 D MPV 9.2 L Immature Gran % (Auto) 1.1 H Neut % (Auto) 40.0 L Lymph % (Auto) 46.6 H [place] % (Auto) 10.7 Eos % (Auto) 1.3 Baso % (Auto) 0.3 Lymph # (Auto) 2.9 [place] # (Auto) 0.7 Eos # (Auto) 0.1 Baso # (Auto) 0.0 Abs Immat Gran (auto) 0.07 H Absolute Neuts (auto) 2.5 Absolute Nucleated RBC 0.000 Nucleated RBC % (auto) 0.0 ESR 53 H Anion Gap 13 Estim Creat Clear Calc 119.5 Estimated GFR > 60 Random Glucose 107 Lactic Acid 2.2 H* Lactic Acid F/U @ 2Hr 1.6 Uric Acid 4.6 Calcium 8.5 C-Reactive Protein 4.37 H ECG Prior ECG tracings: not available for review Imaging Radiologist's Impressions: CT Foot Impression: 1. Suspected phlegmon versus developing fluid collection measuring 2.6 x 1.9 x 1.6 cm within subcutaneous soft tissues overlying plantar aspect of the calcaneus along the lateral margin. 2. Associated soft tissue edema versus cellulitis. 3. Additional findings as above. Assessment and Plan (1) Cellulitis of foot: Status: Acute Plan Patient is a 34-year-old male with past medical history substance use disorder on methadone, IV drug abuse, ETOH abuse with history of seizures, hepatitis-C, COVID, recent epididymitis left testicle, presents to the emergency department with complaints of increasing right ankle pain and swelling. Patient was seen yesterday in the emergency department and was sent home on oral antibiotics noting x-rays were negative. Patient required crutches as he was nonweightbearing on the affected extremity. Patient returned today with worsening symptoms including swelling and pain in the affected ankle. Patient is still unable to bear weight. Patient being admitted with cellulitis with evidence of phlegmon versus fluid collection in the affected ankle. Cellulitis right foot/ phlegmon vs fluid collection 2.6X1.9X 1.[address] foot Pt will continue ABX, Vanco and now Zosyn to cover anarobes Orthopedics consulted ED provider was able to aspirate fluid from affected R ankle, follow fluid and blood cultures ICE, Elevate, pain mgmt with toradol X1 and methadone 10 mg X1, dilaudid less effective for pain Pt deneis IV drug use in affected foot, pt has been living in the [facility] in a tent denies mosquito bites in affected foot or exposure to tick's - tick panel sent Lactate 2.2 now 1.6, ESR and CRP elevated, no leukocytosis or fever Uric acid level negative Pt does not meet criteria for sepsis at this time Follow CBC Substance use disorder on methadone Patient takes 180 mg of methadone per day Patient is following with an outpatient clinic Patient still uses IV drugs 1-2 times per week, prior patient was using 2-3 bags per day History of IV drug abuse Patient denies history of endocarditis or other infections related to IV drug abuse As above patient is enrolled in a clinic helping him with methadone administration Patient deferred need to see addictions during this admission. Patient counseled on the hazards of IV drug abuse. History of alcohol abuse Patient does continue, to drink most days minimum 240 oz beers CIWA protocol initiated, patient denies history of withdrawal or seizure related to withdrawal Thiamine and folic acid ordered No indication for phenobarbital at this time History of hepatitis-C Hepatitis-C positive 2021, viral load high Patient has not had primary care in some time, is not sure if he received treatment for hepatitis- We will repeat RNA testing as patient admits to continuing high-risk behavior, patient will need follow-up in the outpatient setting Homeless with no PCP Case management/social work consult placed Patient is interested in finding a place to live and obtaining a primary care physician BMI is 21(not underweight), patient reports limited access to food, adding ensures 3 times a day DVT prophylaxis: On hold until patient is seen by Orthopedics Med rec pending Full Code status Quality Stroke Does the patient have a stroke diagnosis?: No Reason for No Anti-thrombotic by Day Two: N/A - Med Ordered VTE Prior VTE?: No VTE Risk Level:: Medical - moderate - high VTE Device Contraindication: N/A - Device Ordered VTE Drug Contraindication: N/A - Med Ordered
--- NOTE | 2024-09-29 01:18 | PC.NURSE ---
pt verbalizing increase in pain in RLE - requesting medication. provider notified/aware. medication administered per provider order.
[2024-09-29 02:43] LABS: Magnesium 1.9 mg/dL (1.6-2.6)
[2024-09-29 06:34] LABS: MANUAL DIFF FLAG NO
[2024-09-29 06:42] LABS: Hematocrit 32.8 % (42.0-52.0); Hemoglobin 11.3 g/dl (14.0-18.0); Imm Gran Abs Auto 0.03 X10*3/uL (0.00-0.03); Imm Gran Pct Auto 0.6 % (0.0-0.4); Lymphocytes Absolute Auto 1.6 X10*3/uL (1.2-4.9); Mean Corpuscular HGB Conc 34.5 g/dl (31.0-36.0); Mean Corpuscular Hemoglobin 32.3 pg (27.0-33.0); Mean Corpuscular Volume 93.7 fL (80.0-98.0); NRBC Abs Auto 0.000 X10*3/uL (0.0-0.012); NRBC Pct Auto 0.0 /100WBC (0.0-0.2); Platelet Count 205 X10*3/uL (160-400); Red Blood Count 3.50 X10*6/uL (4.60-5.80); White Blood Count 5.2 X10*3/uL (4.8-10.8)
--- NOTE | 2024-09-29 06:44 | PC.NURSE ---
Pt endorsing 8/10 foot pain. No PRN medication available for that pain level. Provider notified. Plan is for addiction medicine to meet with pt to prescribe his methadone.
[2024-09-29 06:52] LABS: Alanine Aminotransferase 20 U/L (0-40); Albumin Level 3.0 g/dL (3.5-5.0); Alkaline Phosphatase 72 U/L (39-117); Anion Gap 12 (12-20); Aspartate Amino Transferase 34 U/L (5-37); Blood Urea Nitrogen 12 mg/dL (9-16); Calcium 8.2 mg/dL (8.4-10.2); Carbon Dioxide 26 mmol/L (22-29); Chloride 101 mmol/L (96-108); Creatinine Clr Calc Pharmacy 111.9; Estimated Glomerular Filt Rate > 60; Potassium 3.6 mmol/L (3.3-5.1); Sodium 135 mmol/L (135-145); Total Protein 7.1 g/dL (6.5-8.0)
--- NOTE | 2024-09-29 07:44 | PHA.PROG ---
Admission Date/Time: September 29, 2024 01:06 Indication: skin Weight in k.235 kg Adjusted body weight in Kg: [place] body weight in Kg: Obesity Dosing Indication % IBW: Serum Creatinine - Last 168 Hours 09/28/24 09/29/24 22:08 06:05 Creatinine 0.74 0.79 Estimated CrCl and GFR - Last 168 Hours 09/28/24 09/29/24 22:08 06:05 Estim Creat Clear Calc 119.5 111.9 Estimated GFR > 60 > 60 Vancomycin Loading Dose: 1500mg x 1 Current Vancomycin Dosing Regimen: 1000mg Q12H Vancomycin Monitoring using AUC goal of 400 - 600 range with trough as surrogate marker: 467 mg/L Date and Time for next Vancomycin Level to be drawn: 09/30 @0900 Pharmacist Comments on Vancomycin Plan: Predicted trough of 13.4 Vancomycin dosing will take advantage of [employer] as a clinical decision support tool that uses Bayesian modeling to calculate individual patient's pharmacokinetic parameters and forecast the patient's drug concentration time course with the target goal AUC 24 range of 400 - 600 mg/L/hr.
--- NOTE | 2024-09-29 08:21 | PHA.MEDREC ---
Addendum entered by Philipp Glover RPh 09/29/24 08:23: MED REC REVIEWED BY Beny Original Note: Pharmacy Consult ? Medication Reconciliation Pharmacy has completed the medication reconciliation. Patient states he is only taking Methadone 185 mg from [facility] in [place], last dose was yesterday.
--- NOTE | 2024-09-29 09:34 | HE.PHANOTE ---
RE: methadone Last dose 185mg on 09/24 at [facility], given 6 take home bottles
[2024-09-29] MEDS: methADONE HCl 20 MG/2 ML ORAL.CONC 185 MG PO (09:43)
--- NOTE | 2024-09-29 09:59 | PM.HPOR ---
History of Present Illness History of Present Illness Date of Service: 09/29/24 Chief complaint: Foot Pain Narrative: Tung Tijerina is a 34 year old male who has a past medical history significant for IVDA, cocaine and heroine last injected in the upper extremity about 1 weeks ago, etoh abuse drinks 2-3 16oz beers per day, and homeless, who presents to the ED originally on 09/27/24 for atraumatic ankle pain. X-rays were obtained and negative for any acute fracture or dislocation. The patient was provided with crutches at that time and discharged. He presented back to the ED on 09/28/24 with worsening right ankle pain and inability to bearweight due to pain. He was evaluated in the emergency room where repeat x-rays were obtained and were again negative. An US was obtained and significant for a dorsal deep space foot fluid collection. The fluid was then aspirated and described as yellow with pus This was sent to the lab for culture. Culture is pending. Fluid contained 3+ polys, 1+ RBC's and no organisms seen. A CT scan was then obtained and significant for, suspected phlegmon versus developing fluid collection measuring 2.6 x 1.9 x 1.6 cm within subcutaneous soft tissues overlying plantar aspect of the calcaneus along the lateral margin. The patient was admitted to the medicine service with orthopedic consult for further evaluation and treatment. Review of Systems Review of Systems: Yes all other systems are reviewed and are negative PMFSH Past Medical History Medical History IV drug abuse Alcohol dependence Seizures Social History Social History Household Members: None Housing: Homeless Do you presently have visiting nurse or other home services: No Alcohol intake: current Comment: At least 240 oz beers per day Patient Tobacco Use Status: Never used Tobacco Substance Use Type: IV Drugs and Other service: No Travel History Ebola Risk: Travel/Contact With Anyone From Affected Area/s: No Has Patient Experienced Ebola Symptoms: No Meds Allergies Allergy/AdvReac Type Severity Reaction Status Date / Time No Known Allergies (No Known Allergy Verified 09/28/24 18:17 Allergies*) Active Medications: Current Medications Acetaminophen (Acetaminophen 325 Mg Tablet) 650 mg PO Q6H PRN PRN Reason: Pain, Mild 1-3,fever,headache Albuterol/Ipratropium (Albuterol/Iprat 2.5/0.5mg 3 Ml Ampul.Neb) 3 ml INHALE Q4H PRN PRN Reason: Shortness of Breath/Wheezing Calcium Carbonate (Calcium Carbonate 750 Mg Tab.Chew) 750 mg PO Q4H PRN PRN Reason: Heartburn Enoxaparin Sodium (Enoxaparin Sodium 40 Mg/0.4 Ml Syringe) 40 mg SUBCUT Q24H [facility] On Hold: 09/29/24 09:00 Folic Acid (Folic Acid 1 Mg Tablet) 1 mg PO DAILY [facility] Last Admin: 09/29/24 08:50 Dose: 1 mg Piperacillin Sod/Tazobactam (Sod 4.5 gm/ Sodium Chloride) 100 mls @ 200 mls/hr IV Q6H [facility] Last Infusion: 09/29/24 09:52 Dose: Infused Vancomycin HCl 1,000 mg/ (Sodium Chloride) 270 mls @ 270 mls/hr IV Q12H [facility] Magnesium Hydroxide (Milk Of Magnesia 30 Ml Oral.Susp) 30 ml PO DAILY PRN PRN Reason: Constipation Melatonin (Melatonin 3 Mg Tablet) 6 mg PO BEDTIME PRN PRN Reason: Insomnia Methadone HCl (Methadone Hcl 20 Mg/2 Ml Oral.Conc) 185 mg PO DAILY [facility] Last Admin: 09/29/24 09:43 Dose: 185 mg Ondansetron HCl (Ondansetron Hcl 4 Mg/2 Ml Vial) 4 mg IVPUSH Q8H PRN PRN Reason: Nausea and Vomiting Pharmacy Consult (Consult Rx Vancomycin Dosing) 1 each MISCELLANE DAILY PRN PRN Reason: Consult order Sodium Chloride (0.9 % Sodium Chloride Flush 3 Ml Syringe) 3 ml IVFLUSH QSHIFT [facility] Last Admin: 09/29/24 09:05 Dose: Not Given Thiamine HCl (Thiamine Hcl 100 Mg Tablet) 100 mg PO DAILY [facility] Last Admin: 09/29/24 08:50 Dose: 100 mg Home Medications ?Medication ?Instructions ?Recorded ?Confirmed ?Last Taken ?Type methadone 10 mg/mL oral concentrate 185 mg PO DAILY 09/06/24 09/29/24 1 Day Ago History ~09/28/24 185 mg Physical Exam Vital Signs: Vital Signs: Last Vital Signs Temp 98.5 F 09/29/24 09:10 Pulse 64 09/29/24 09:10 Resp 16 09/29/24 09:10 BP 149/95 H 09/29/24 09:10 Pulse Ox 100 09/29/24 09:10 O2 Del Method Room Air 09/29/24 09:10 BMI result Body Mass Index 17.3 Const: General: cooperative, healthy appearing and no acute distress Resp: Effort & Inspection: normal respiratory effort and able to speak in complete sentences Cardio: Rate: regular rate Peripheral pulses: Peripheral pulses 2+ throughout Skin: Lesions: no lesions Rashes: no rashes Extrem: Other: Right ankle: Anterior ankle into the dorsal aspect of the foot mild to moderate edema. Exquisite tenderness to palpation of the anterior tib as well as over both malleoli. Very limited ROM with dorsi/plantar flexion due to pain. Sensation intact. Pedal pulse intact. Results Labs 09/29/24 06:05 09/29/24 06:05 Labs: Abnormal lab results 09/28/24 09/28/24 09/29/24 Range/Units 22:07 22:08 06:05 RBC 3.57 L 3.50 L (4.60-5.80) X10*6/uL Hgb 11.6 L 11.3 L (14.0-18.0) g/dl Hct 33.1 L 32.8 L (42.0-52.0) % MPV 9.2 L 9.2 L (9.4-12.4) fL Immature Gran % (Auto) 1.1 H 0.6 H (0.0-0.4) % Neut % (Auto) 40.0 L (45-73) % Lymph % (Auto) 46.6 H (20-40) % Abs Immat Gran (auto) 0.07 H (0.00-0.03) X10*3/uL ESR 53 H (0-15) MM/HR Lactic Acid 2.2 H* (0.5-2.0) mmol/L Calcium 8.2 L (8.4-10.2) mg/dL C-Reactive Protein 4.37 H (< or = 0.50) mg/dL Albumin 3.0 L (3.5-5.0) g/dL H & H 09/28/24 09/29/24 Range/Units 22:07 06:05 Hgb 11.6 L 11.3 L (14.0-18.0) g/dl Hct 33.1 L 32.8 L (42.0-52.0) % All other labs normal. Assessment and Plan (1) Opioid use disorder: Status: Acute (2) Alcohol dependence: Status: Acute (3) Methadone maintenance therapy patient: Status: Acute (4) IV drug abuse: Status: Acute (5) Cellulitis of foot: Status: Acute (6) Septic joint: Status: Acute (7) Cellulitis of right ankle: Status: Acute Plan I discussed the case with Dr. Jorge and explained the extent of the injury to the patient and options available which include surgical intervention. I explained the procedure in detail along with the length of recovery and rehab course. I explained the risk, benefits and alternatives. Risk including, but not limited to infection, blood clots, bleeding, non union or malunion and nerve/tissue damage to surrounding areas. I answered all their questions and with their understanding they have consented to move forward with irrigation and debridement of right ankle. The patient will be T&S and NPO after midnight. Quality Stroke Does the patient have a stroke diagnosis?: No Reason for No Anti-thrombotic by Day Two: N/A - Med Ordered VTE Prior VTE?: No VTE Risk Level:: Medical - moderate - high VTE Device Contraindication: N/A - Device Ordered VTE Drug Contraindication: N/A - Med Ordered Procedures Date of Service Date of Service: 09/29/24
--- NOTE | 2024-09-29 13:00 | PM.EVENT ---
Event Note Date of Service: 09/29/24 Event Note: This patient is seen and examined . Lab imaging reviewed . Physical exam and assessment and plan coordinated as in h&P. Agree with the plan in addition: Cellulitis right foot/ phlegmon vs fluid collection continue iv antibiotics urine drug screen alcohol /drug use: rolando moore ,addiction consult continue methdone . ortho eval- npo for midnight ,possible i&D in am . Time Spent With Patient Time: Total time managing care of this patient today ____ minutes.
[2024-09-29] MEDS: 0.9 % Sodium Chloride Flush 3 ML SYRINGE IVFLUSH ×2 (14:33→20:04)
--- NOTE | 2024-09-29 14:54 | MHC.RECOVRN ---
Attempted to meet w/ pt to discuss OUD and recovery support. Upon approach pt is resting comfortably in bed. Pt stated he has some pain on his R foot after abscess drainage. When inquired about his substance use pt stated Can you actually come back later? I had just started to fall asleep . Pt assured t/w will return.
[2024-09-29 17:40] LABS: Cannabinoid Screen Urine POSITIVE (Not Detect)
[2024-09-29] MEDS: methADONE HCl 20 MG/2 ML ORAL.CONC 10 MG PO (17:40)
--- NOTE | 2024-09-29 18:26 | PC.NURSE ---
late entry-1722 Pt states he is becoming anxious, has increased pain and states he feels as he may be starting to go through withdrawls. CIWA 4. Dr Urbina notified, methadone 10mg po ordered and given with good effect
[2024-09-30] VITALS (10 sets, daily range): BP systolic 112–138; BP diastolic 66–96; PULSE 52–69; RESP 10–18; TEMP 36.2–37.1; O2SAT 96–99
[2024-09-30 06:38] LABS: Creatinine Clr Calc Pharmacy 111.6; Estimated Glomerular Filt Rate > 60
[2024-09-30] MEDS: methADONE HCl 20 MG/2 ML ORAL.CONC 185 MG PO (08:11)
[2024-09-30] MEDS: 0.9 % Sodium Chloride Flush 3 ML SYRINGE IVFLUSH ×2 (08:19→14:23)
--- NOTE | 2024-09-30 09:42 | HE.PHANOTE ---
RE: vanco Level came abck at 6.3; increased dose to 1250mg Q8H with predicted trough of 13.5 mg/L, AUC of 539 mg/L. Next level to be drawn 10/01 @0800
--- NOTE | 2024-09-30 10:01 | PC.NURSE ---
Pt transported to the OR via bed with OR staff
--- NOTE | 2024-09-30 10:34 | MHC.SHP ---
Pre-Procedural Eval Section A - 24 Hr Update-Section A only Date of Service: 09/30/24 The patient is an INPATIENT: Yes Changes since office visit: No Cold of Flu in the past 2 weeks, No New Medical Problems, No Changes in Medication and No Patient answered all questions The patient has been examined within 24 hours of the surgical procedure. The History & Physical has been completed within 30 days and I have reviewed it.: Yes Section B - Complete if H&P > 30 days Chief Complaint: Foot Pain Allergies: Allergies Allergy/AdvReac Type Severity Reaction Status Date / Time No Known Allergies (No Known Allergy Verified 09/28/24 18:17 Allergies*) Plan I have reviewed the history and physical and performed a pertinent physical examination on my patient. No changes have occurred unless specified. Time Spent With Patient Time: Total time managing care of this patient today ____ minutes.
--- NOTE | 2024-09-30 11:24 | HO.ANESPROP2 ---
PENDING SALE TO [facility] Active Problems Active Problems: All Active Problems Cellulitis of right ankle (Acute) Septic joint (Acute) IV drug abuse (Acute) Methadone maintenance therapy patient (Acute) Alcohol dependence (Acute) Cellulitis of foot (Acute) Opioid use disorder (Acute) Acute epididymo-orchitis (Acute) Past Medical History Medical History IV drug abuse Alcohol dependence Seizures Functional capacity: independent ambulation (crutches ) Family History Family history of problems with anesthesia: No Surgical History History of Problems with Anesthesia: No Social History Social History Household Members: None Housing: Homeless Do you presently have visiting nurse or other home services: No Alcohol intake: current Comment: counts correct Patient Tobacco Use Status: Never used Tobacco Substance Use Type: IV Drugs and Other service: No Meds Allergies Allergy/AdvReac Type Severity Reaction Status Date / Time No Known Allergies (No Known Allergy Verified 09/28/24 18:17 Allergies*) Active Medications: Current Medications Acetaminophen (Acetaminophen 325 Mg Tablet) 650 mg PO Q6H PRN PRN Reason: Pain, Mild 1-3,fever,headache Last Admin: 09/30/24 03:33 Dose: 650 mg Albuterol/Ipratropium (Albuterol/Iprat 2.5/0.5mg 3 Ml Ampul.Neb) 3 ml INHALE Q4H PRN PRN Reason: Shortness of Breath/Wheezing Calcium Carbonate (Calcium Carbonate 750 Mg Tab.Chew) 750 mg PO Q4H PRN PRN Reason: Heartburn Enoxaparin Sodium (Enoxaparin Sodium 40 Mg/0.4 Ml Syringe) 40 mg SUBCUT Q24H [facility] On Hold: 09/29/24 09:00 Folic Acid (Folic Acid 1 Mg Tablet) 1 mg PO DAILY [facility] Last Admin: 09/29/24 08:50 Dose: 1 mg Piperacillin Sod/Tazobactam (Sod 4.5 gm/ Sodium Chloride) 100 mls @ 200 mls/hr IV Q6H [facility] Last Infusion: 09/30/24 09:03 Dose: Infused Vancomycin HCl 1,250 mg/ (Sodium Chloride) 250 mls @ 166.667 mls/hr IV Q8H [facility] Last Admin: 09/30/24 09:54 Dose: 166.67 mls/hr Magnesium Hydroxide (Milk Of Magnesia 30 Ml Oral.Susp) 30 ml PO DAILY PRN PRN Reason: Constipation Melatonin (Melatonin 3 Mg Tablet) 6 mg PO BEDTIME PRN PRN Reason: Insomnia Methadone HCl (Methadone Hcl 20 Mg/2 Ml Oral.Conc) 185 mg PO DAILY [facility] Last Admin: 09/30/24 08:11 Dose: 185 mg Pharmacy Consult (Consult Rx Vancomycin Dosing) 1 each MISCELLANE DAILY PRN PRN Reason: Consult order Sodium Chloride (0.9 % Sodium Chloride Flush 3 Ml Syringe) 3 ml IVFLUSH QSHIFT [facility] Last Admin: 09/30/24 08:19 Dose: 3 ml Thiamine HCl (Thiamine Hcl 100 Mg Tablet) 100 mg PO DAILY [facility] Last Admin: 09/29/24 08:50 Dose: 100 mg Home Medications ?Medication ?Instructions ?Recorded ?Confirmed ?Last Taken ?Type methadone 10 mg/mL oral concentrate 185 mg PO DAILY 09/06/24 09/29/24 1 Day Ago History ~09/28/24 185 mg Exam Height,Weight and Vital Signs: Height 5 ft 6 in Weight 48.7 kg Last Vital Signs Temp 97.8 F 09/30/24 07:16 Pulse 55 09/30/24 07:16 Resp 14 09/30/24 07:16 BP 130/89 09/30/24 07:16 Pulse Ox 99 09/30/24 07:16 O2 Del Method Room Air 09/30/24 07:16 Pertinent Lab Results Pertinent Lab Results: Laboratory Tests 09/28/24 09/28/24 09/29/24 22:07 22:08 00:19 WBC 6.1 RBC 3.57 L Hgb 11.6 L Hct 33.1 L MCV 92.7 MCH 32.5 MCHC 35.0 RDW 12.2 Plt Count 220 D MPV 9.2 L Immature Gran % (Auto) 1.1 H Neut % (Auto) 40.0 L Lymph % (Auto) 46.6 H Pettis % (Auto) 10.7 Eos % (Auto) 1.3 Baso % (Auto) 0.3 Lymph # (Auto) 2.9 Pettis # (Auto) 0.7 Eos # (Auto) 0.1 Baso # (Auto) 0.0 Abs Immat Gran (auto) 0.07 H Absolute Neuts (auto) 2.5 Absolute Nucleated RBC 0.000 Nucleated RBC % (auto) 0.0 ESR 53 H Sodium 136 Potassium 3.4 Chloride 103 Carbon Dioxide 23 Anion Gap 13 BUN 11 Creatinine 0.74 Estim Creat Clear Calc 119.5 Estimated GFR > 60 Random Glucose 107 Lactic Acid 2.2 H* Lactic Acid F/U @ 2Hr 1.6 Uric Acid 4.6 Calcium 8.5 Magnesium 1.9 Total Bilirubin AST ALT Alkaline Phosphatase C-Reactive Protein 4.37 H Total Protein Albumin Vancomycin Trough Urine Opiates Screen Ur Buprenorphine Scrn Ur Oxycodone Screen Urine Methadone Screen Urine Fentanyl Screen Ur Barbiturates Screen Ur Phencyclidine Scrn Ur Amphetamines Screen U Benzodiazepines Scrn Urine Cocaine Screen U Marijuana (THC) Screen 09/29/24 09/29/24 09/30/24 06:05 17:17 06:09 WBC 5.2 RBC 3.50 L Hgb 11.3 L Hct 32.8 L MCV 93.7 MCH 32.3 MCHC 34.5 RDW 12.5 Plt Count 205 MPV 9.2 L Immature Gran % (Auto) 0.6 H Neut % (Auto) 55.6 Lymph % (Auto) 31.6 Pettis % (Auto) 9.5 Eos % (Auto) 2.1 Baso % (Auto) 0.6 Lymph # (Auto) 1.6 Pettis # (Auto) 0.5 Eos # (Auto) 0.1 Baso # (Auto) 0.0 Abs Immat Gran (auto) 0.03 Absolute Neuts (auto) 2.9 Absolute Nucleated RBC 0.000 Nucleated RBC % (auto) 0.0 ESR Sodium 135 Potassium 3.6 Chloride 101 Carbon Dioxide 26 Anion Gap 12 BUN 12 Creatinine 0.79 0.63 Estim Creat Clear Calc 111.9 111.6 Estimated GFR > 60 > 60 Random Glucose 86 Lactic Acid Lactic Acid F/U @ 2Hr Uric Acid Calcium 8.2 L Magnesium Total Bilirubin 0.3 AST 34 ALT 20 Alkaline Phosphatase 72 C-Reactive Protein Total Protein 7.1 Albumin 3.0 L Vancomycin Trough Urine Opiates Screen POSITIVE H Ur Buprenorphine Scrn Not Detected Ur Oxycodone Screen Not Detected Urine Methadone Screen Positive H Urine Fentanyl Screen POSITIVE H Ur Barbiturates Screen Not Detected Ur Phencyclidine Scrn Not Detected Ur Amphetamines Screen Not Detected U Benzodiazepines Scrn Not Detected Urine Cocaine Screen POSITIVE H U Marijuana (THC) Screen POSITIVE H 09/30/24 09:01 WBC RBC Hgb Hct MCV MCH MCHC RDW Plt Count MPV Immature Gran % (Auto) Neut % (Auto) Lymph % (Auto) Pettis % (Auto) Eos % (Auto) Baso % (Auto) Lymph # (Auto) Pettis # (Auto) Eos # (Auto) Baso # (Auto) Abs Immat Gran (auto) Absolute Neuts (auto) Absolute Nucleated RBC Nucleated RBC % (auto) ESR Sodium Potassium Chloride Carbon Dioxide Anion Gap BUN Creatinine Estim Creat Clear Calc Estimated GFR Random Glucose Lactic Acid Lactic Acid F/U @ 2Hr Uric Acid Calcium Magnesium Total Bilirubin AST ALT Alkaline Phosphatase C-Reactive Protein Total Protein Albumin Vancomycin Trough 6.3 L Urine Opiates Screen Ur Buprenorphine Scrn Ur Oxycodone Screen Urine Methadone Screen Urine Fentanyl Screen Ur Barbiturates Screen Ur Phencyclidine Scrn Ur Amphetamines Screen U Benzodiazepines Scrn Urine Cocaine Screen U Marijuana (THC) Screen Airway Mallampati Class: II TM Dist: >3cm Neck ROM: Full Heart: RRR Lungs: CTA Assessment and Plan Assessment Anesthesia Assessment: Anesthesia Plan Discussed, Smoking Cess. Discussed and Chart Reviewed Final Anesthetic Review Family History of Problems with Anesthesia: No History of Problems with Anesthesia: No NPO: Yes ASA Class: III and Emergency Final Preanesthetic Review: Meds/Allgs Chart Reviewed, Consent Obtained/Reviewed and Anes Risks/Benef Reviewed Patient Risk: Intermediate Procedure Risk: Low Anesthetic Plan Anesthetic Plan: GA Disposition: Standard PACU
--- NOTE | 2024-09-30 11:56 | P.BOP_ITS ---
Brief Operative Note Date of Service: 09/30/24 Pre-op diagnosis: abcess right ankle Post-op diagnosis: same Procedure: aspiration right ankle incision and drainage right foot abcess Implants: none Surgeon: Elia Jorge MD Anesthesia: GLMA and local Was an Tray Checker used for this Procedure?: Yes Tray Checker: Corinna Story Estimated blood loss (mL): 25 IV fluids (mL): 750 Pathology: other Condition: stable Disposition: PACU
[2024-09-30 12:24] LABS: Source Synovial Fluid R ankle fluid collection; Source Synovial Fluid right ankle joint
[2024-09-30] MEDS: oxyCODONE HCl Immed Release 5 MG TABLET PO ×2 (12:53→19:22)
[2024-09-30 13:51] LABS: RBC Synovial Fluid Manual 191250 mm*3; WBC Synovial Fluid Manual 4500 mm*3
[2024-09-30 13:52] LABS: RBC Synovial Fluid Manual 2176000 mm*3; WBC Synovial Fluid Manual 3000 mm*3
[2024-09-30 14:26] LABS: Basophils Synovial Fluid 2 %; Eosinophils Synovial Fluid 1 %; Lymphocytes Synovial Fluid 66 %; Monocytes Synovial Fluid 17 %; Neutrophils Synovial Fluid 3 %; Other Cells Synovial Fluid 11
[2024-09-30 14:30] LABS: Eosinophils Synovial Fluid 4 %; Lymphocytes Synovial Fluid 49 %; Monocytes Synovial Fluid 15 %; Neutrophils Synovial Fluid 32 %
--- NOTE | 2024-09-30 15:07 | MHC.CM.PN ---
PT REPORTS HE IS HOMELESS AND HAS BEEN STAYING IN A TENT HE IS ACTIVE WITH [facility] FOR MAT AND HAS NO DME HE DOES NOT HAVE A HCP AND DECLINES TO COMPLETE ONE TODAY NO PCP, BROCHURE PROVIDED DCP: PT AWARE HE MAY NEED PLACEMENT FOR IV ABX BLS TRANSPORT
--- NOTE | 2024-09-30 16:14 | PC.NURSE ---
1223- Pt returned from PACU in his bed. Alert, denied pain. Splint with dolores to right foot up to just below knee CDI. Pt able to move toes and positive sensation. Leg elevated on 3 pillows. VSS
--- NOTE | 2024-09-30 16:15 | P.PNIM_ITS ---
Subjective Subjective Date of Service: 09/30/24 Interval History: ankle cellulitis Review of Systems ankle pain seems improving no fevers Review of Systems: Yes all other systems are reviewed and are negative Physical Exam 2 Exam: Exam: Appearance: Alert.? Oriented X3.? cvs: [id number], [id number] . res: clear to auscultation . abd: no rebound or guarding ,nt, bs present. ext pulses present , no cyanosis . right ankle -wrapped post surgery,patient is movin foot fine neuro: axo3 , nonfocal. Vital Signs: Vital Signs: Last Vital Signs Temp 97.9 F 09/30/24 15:11 Pulse 56 09/30/24 15:11 Resp 12 09/30/24 15:11 BP 115/70 09/30/24 15:11 Pulse Ox 98 09/30/24 15:11 O2 Del Method Room Air 09/30/24 15:11 BMI result Body Mass Index 17.3 Objective Data Active Medications Acetaminophen (Acetaminophen 325 Mg Tablet) 650 mg PO Q6H PRN PRN Reason: Pain, Mild 1-3,fever,headache Last Admin: 09/30/24 03:33 Dose: 650 mg Documented By: BRODY Albuterol/Ipratropium (Albuterol/Iprat 2.5/0.5mg 3 Ml Ampul.Neb) 3 ml INHALE Q4H PRN PRN Reason: Shortness of Breath/Wheezing Calcium Carbonate (Calcium Carbonate 750 Mg Tab.Chew) 750 mg PO Q4H PRN PRN Reason: Heartburn Enoxaparin Sodium (Enoxaparin Sodium 40 Mg/0.4 Ml Syringe) 40 mg SUBCUT Q24H [facility] Folic Acid (Folic Acid 1 Mg Tablet) 1 mg PO DAILY [facility] Last Admin: 09/30/24 12:54 Dose: 1 mg Documented By: LUL Hydromorphone HCl (Hydromorphone Hcl 0.5 Mg/0.5 Ml Syringe) 0.5 mg IVPUSH Q5M PRN PRN Reason: Pain, Moderate to Severe (Pain Scale 4-10) Stop: 09/30/24 17:26 Piperacillin Sod/Tazobactam (Sod 4.5 gm/ Sodium Chloride) 100 mls @ 200 mls/hr IV Q6H [facility] Last Infusion: 09/30/24 14:51 Dose: Infused Documented By: LUL Vancomycin HCl 1,250 mg/ (Sodium Chloride) 250 mls @ 166.667 mls/hr IV Q8H [facility] Last Infusion: 09/30/24 11:24 Dose: Infused Documented By: LUL Cefazolin Sodium/Dextrose (Ancef) 2 gm in 50 mls @ 100 mls/hr IV POSTOP [facility] Ketorolac Tromethamine (Ketorolac Tromethamine 30 Mg/Ml Vial) 30 mg IVPUSH ONCE PRN PRN Reason: Pain, Severe (Pain Scale 7-10) Stop: 09/30/24 17:26 Magnesium Hydroxide (Milk Of Magnesia 30 Ml Oral.Susp) 30 ml PO DAILY PRN PRN Reason: Constipation Melatonin (Melatonin 3 Mg Tablet) 6 mg PO BEDTIME PRN PRN Reason: Insomnia Methadone HCl (Methadone Hcl 20 Mg/2 Ml Oral.Conc) 185 mg PO DAILY [facility] Last Admin: 09/30/24 08:11 Dose: 185 mg Documented By: LUL Co-signed By: JADIEL Naloxone HCl (Naloxone Hcl 0.4 Mg/Ml Vial) 0.04 mg IVPUSH Q5M PRN PRN Reason: Excessive sedation or RR < 8 Ondansetron HCl (Ondansetron Hcl 4 Mg/2 Ml Vial) 4 mg IVPUSH ONCE PRN PRN Reason: Nausea and Vomiting Stop: 09/30/24 17:26 Oxycodone HCl (Oxycodone Hcl Immed Release 5 Mg Tablet) 5 mg PO Q6H PRN PRN Reason: Pain, Moderate(Pain Scale 4-6) Last Admin: 09/30/24 12:53 Dose: 5 mg Documented By: LUL Pharmacy Consult (Consult Rx Vancomycin Dosing) 1 each MISCELLANE DAILY PRN PRN Reason: Consult order Sodium Chloride (0.9 % Sodium Chloride Flush 3 Ml Syringe) 3 ml IVFLUSH QSHIFT [facility] Last Admin: 09/30/24 14:23 Dose: 3 ml Documented By: LUL Thiamine HCl (Thiamine Hcl 100 Mg Tablet) 100 mg PO DAILY [facility] Last Admin: 09/30/24 12:54 Dose: 100 mg Documented By: LUL Labs 09/29/24 06:05 09/30/24 06:09 Labs: Laboratory Results - last 24 hr 09/29/24 09/30/24 09/30/24 17:17 06:09 09:01 Estim Creat Clear Calc 111.6 Estimated GFR > 60 Synovial Source Synovial WBC Synovial RBC Synov WBC Hemocytom Sq Synov RBC Hemocytom Sq Synovial Neutrophils Synovial Lymphocytes Synovial Monocytes Synovial Basophils Synovial Eosinophils Synovial Other Cells Vancomycin Trough 6.3 L Urine Opiates Screen POSITIVE H Ur Buprenorphine Scrn Not Detected Ur Oxycodone Screen Not Detected Urine Methadone Screen Positive H Urine Fentanyl Screen POSITIVE H Ur Barbiturates Screen Not Detected Ur Phencyclidine Scrn Not Detected Ur Amphetamines Screen Not Detected U Benzodiazepines Scrn Not Detected Urine Cocaine Screen POSITIVE H U Marijuana (THC) Screen POSITIVE H 09/30/24 09/30/24 09/30/24 11:54 11:54 11:54 Estim Creat Clear Calc Estimated GFR Synovial Source right ankle joint R ankle fluid collection Synovial WBC Cancelled Cancelled Synovial RBC Cancelled Synov WBC Hemocytom Sq Synov RBC Hemocytom Sq Synovial Neutrophils Synovial Lymphocytes Synovial Monocytes Synovial Basophils Synovial Eosinophils Synovial Other Cells Vancomycin Trough Urine Opiates Screen Ur Buprenorphine Scrn Ur Oxycodone Screen Urine Methadone Screen Urine Fentanyl Screen Ur Barbiturates Screen Ur Phencyclidine Scrn Ur Amphetamines Screen U Benzodiazepines Scrn Urine Cocaine Screen U Marijuana (THC) Screen 09/30/24 09/30/24 09/30/24 11:54 11:54 11:54 Estim Creat Clear Calc Estimated GFR Synovial Source Synovial WBC Synovial RBC Cancelled Synov WBC Hemocytom Sq 4500 3000 Synov RBC Hemocytom Sq [id number] Synovial Neutrophils 3 Synovial Lymphocytes Synovial Monocytes Synovial Basophils Synovial Eosinophils Synovial Other Cells Vancomycin Trough Urine Opiates Screen Ur Buprenorphine Scrn Ur Oxycodone Screen Urine Methadone Screen Urine Fentanyl Screen Ur Barbiturates Screen Ur Phencyclidine Scrn Ur Amphetamines Screen U Benzodiazepines Scrn Urine Cocaine Screen U Marijuana (THC) Screen 09/30/24 09/30/24 09/30/24 11:54 11:54 11:54 Estim Creat Clear Calc Estimated GFR Synovial Source Synovial WBC Synovial RBC Synov WBC Hemocytom Sq Synov RBC Hemocytom Sq Synovial Neutrophils 32 Synovial Lymphocytes 66 49 Synovial Monocytes 17 15 Synovial Basophils 2 Synovial Eosinophils 1 Synovial Other Cells Vancomycin Trough Urine Opiates Screen Ur Buprenorphine Scrn Ur Oxycodone Screen Urine Methadone Screen Urine Fentanyl Screen Ur Barbiturates Screen Ur Phencyclidine Scrn Ur Amphetamines Screen U Benzodiazepines Scrn Urine Cocaine Screen U Marijuana (THC) Screen 09/30/24 11:54 Estim Creat Clear Calc Estimated GFR Synovial Source Synovial WBC Synovial RBC Synov WBC Hemocytom Sq Synov RBC Hemocytom Sq Synovial Neutrophils Synovial Lymphocytes Synovial Monocytes Synovial Basophils Synovial Eosinophils 4 Synovial Other Cells 11 Vancomycin Trough Urine Opiates Screen Ur Buprenorphine Scrn Ur Oxycodone Screen Urine Methadone Screen Urine Fentanyl Screen Ur Barbiturates Screen Ur Phencyclidine Scrn Ur Amphetamines Screen U Benzodiazepines Scrn Urine Cocaine Screen U Marijuana (THC) Screen Microbiology Microbiology Results: Microbiology 09/30/24 11:54 Gram Stain - Final Ankle Aspirate - Aspirate Gross Specimen Examination - Final Fluid Crystals - Final 09/30/24 11:54 Fluid Crystals - Final Ankle Right 09/29/24 00:25 Gram Stain - Final Foot - Abscess Routine Culture - Preliminary Culture in progress. 09/29/24 00:16 Blood Culture - Preliminary Blood - Venous No growth after 24 hours. 09/29/24 00:17 Blood Culture - Preliminary Blood - Venous No growth after 24 hours. Assessment and Plan (1) Cellulitis of foot: Status: Acute Plan 34-year-old male with past medical history substance use disorder on methadone, IV drug abuse, ETOH abuse with history of seizures, hepatitis-C, COVID, recent epididymitis left testicle, presents to the emergency department with complaints of increasing right ankle pain and swelling. Patient was seen yesterday in the emergency department and was sent home on oral antibiotics noting x-rays were negative. Patient required crutches as he was nonweightbearing on the affected extremity. Patient returned today with worsening symptoms including swelling and pain in the affected ankle. Patient is still unable to bear weight. Patient being admitted with cellulitis with evidence of phlegmon versus fluid collection in the affected ankle. Cellulitis right foot/ phlegmon vs fluid collection 2.6X1.9X 1.[address] foot/ abcess right ankle: Lactate 2.2 now 1.6, ESR and CRP elevated, no leukocytosis or fever ,Uric acid level negative s/p i&D of foot abcess Pt will continue ABX, Vanco and now Zosyn to cover anarobes follow fluid and blood cultures ICE, Elevate, pain mgmt with toradol X1 and methadone 10 mg X1, dilaudid less effective for pain pt has been living in the [facility] in a tent denies mosquito bites in affected foot or exposure to tick's - tick panel sent ortho following Substance use disorder on methadone: Patient takes 180 mg of methadone per day Patient is following with an outpatient clinic History of IV drug abuse clinic helping him with methadone administration Patient deferred need to see addictions during this admission. Patient counseled on the hazards of IV drug abuse. History of alcohol abuse Patient does continue, to drink most days minimum 240 oz beers [facility] protocol. Thiamine and folic acid ordered No indication for phenobarbital at this time History of hepatitis-C: Hepatitis-C positive 2021, viral load high Patient has not had primary care in some time, is not sure if he received treatment for hepatitis- repeat RNA testing as patient admits to continuing high-risk behavior, patient will need follow-up in the outpatient setting Homeless with no PCP Case management/social work consult placed Patient is interested in finding a place to live and obtaining a primary care physician BMI is 21(not underweight), patient reports limited access to food, adding ensures 3 times a day DVT prophylaxis: On hold /Orthopedics will check if ok to start Ongoing need of stay:Cellulitis right foot/ phlegmon vs fluid collection 2.6X1.9X 1.[address] foot: Patient need IV antibiotics, cultures pending. Quality Stroke Does the patient have a stroke diagnosis?: No Reason for No Anti-thrombotic by Day Two: N/A - Med Ordered VTE Prior VTE?: No VTE Risk Level:: Medical - moderate - high VTE Device Contraindication: N/A - Device Ordered VTE Drug Contraindication: N/A - Med Ordered
[2024-10-01] VITALS (7 sets, daily range): BP systolic 109–152; BP diastolic 57–97; PULSE 54–66; RESP 14–18; TEMP 36–37.1; O2SAT 97–100; BMI 21.8
[2024-10-01] MEDS: 0.9 % Sodium Chloride Flush 3 ML SYRINGE IVFLUSH ×4 (00:14→20:12)
[2024-10-01] MEDS: oxyCODONE HCl Immed Release 5 MG TABLET PO ×4 (01:37→20:11)
--- NOTE | 2024-10-01 07:59 | PM.PNORT ---
Subjective Subjective Date of Service: 10/01/24 Interval history: POD1 s/p right ankle irrigation and debridement Patient is resting in bed comfortably No overnight events Pain is managed No additional complaints Physical Exam Vital Signs: Vital Signs: Last Vital Signs Temp 97.6 F 10/01/24 03:32 Pulse 55 10/01/24 03:32 Resp 18 10/01/24 03:32 BP 152/94 H 10/01/24 03:32 Pulse Ox 99 10/01/24 03:32 O2 Del Method Room Air 10/01/24 03:32 BMI result Body Mass Index 17.3 Const: General: cooperative, healthy appearing and no acute distress Resp: Effort & Inspection: normal respiratory effort and able to speak in complete sentences Extrem: Other: Right ankle splint is c/d/i. Able to move all digits. Sensation reported in all digits. Cap refill brisk. Procedures Date of Service Date of Service: 10/01/24 Progress Note: A&P Assessment and plan (1) IV drug abuse: Status: Acute (2) Methadone maintenance therapy patient: Status: Acute (3) Alcohol dependence: Status: Acute (4) Opioid use disorder: Status: Acute (5) Cellulitis of foot: Status: Acute (6) Cellulitis of right ankle: Status: Acute Plan Continue pain mgmnt Begin p.t. - NWB RLE - splint in place Keep splint c/d/i Elevation on three pillows above heart level Dispo planning-Pending PT eval, pain mgmnt Time Spent With Patient Time: Total time managing care of this patient today ____ minutes. Quality Stroke Does the patient have a stroke diagnosis?: No Reason for No Anti-thrombotic by Day Two: N/A - Med Ordered VTE Prior VTE?: No VTE Risk Level:: Medical - moderate - high VTE Device Contraindication: N/A - Device Ordered VTE Drug Contraindication: N/A - Med Ordered
[2024-10-01] MEDS: methADONE HCl 20 MG/2 ML ORAL.CONC 185 MG PO (08:01)
[2024-10-01 08:18] LABS: Hematocrit 33.1 % (42.0-52.0); Hemoglobin 11.1 g/dl (14.0-18.0); Mean Corpuscular HGB Conc 33.5 g/dl (31.0-36.0); Mean Corpuscular Hemoglobin 32.4 pg (27.0-33.0); Mean Corpuscular Volume 96.5 fL (80.0-98.0); NRBC Abs Auto 0.000 X10*3/uL (0.0-0.012); NRBC Pct Auto 0.0 /100WBC (0.0-0.2); Platelet Count 231 X10*3/uL (160-400); Red Blood Count 3.43 X10*6/uL (4.60-5.80); White Blood Count 7.1 X10*3/uL (4.8-10.8)
--- NOTE | 2024-10-01 08:19 | HO.POSTANES ---
Post Anesthesia Evaluation Post Anesthesia Evaluation Date of Service: 10/01/24 Vital Signs: Vital Signs Temp Pulse Resp BP Pulse Ox O2 Del Method 10/01/24 08:00 97.0 F 63 18 141/85 H 100 Room Air 10/01/24 03:32 97.6 F 55 18 152/94 H 99 Room Air 10/01/24 00:00 98.7 F 54 18 151/97 H 98 Room Air Anesthesia: General Mental Status: Awake Pain Control: Satisfactory Nausea/Vomiting: None Hydration: Adequate Anesthesia-Related Issues: No Anes. Related Issues
[2024-10-01 08:42] LABS: Anion Gap 9 (12-20); Blood Urea Nitrogen 10 mg/dL (9-16); Calcium 8.8 mg/dL (8.4-10.2); Carbon Dioxide 31 mmol/L (22-29); Chloride 103 mmol/L (96-108); Creatinine Clr Calc Pharmacy 113.4; Estimated Glomerular Filt Rate > 60; Potassium 4.1 mmol/L (3.3-5.1); Sodium 139 mmol/L (135-145)
--- NOTE | 2024-10-01 09:38 | MHC.CLN ---
NUTRITION PATIENT STATED USUAL WEIGHT RANGE IS 130-135#. 09/29 WEIGHT=48.7 KG DEEMED INCORRECT. 09/28 WEIGHT=61.2 KG (134.6#) AND WITHIN USUAL WEIGHT RANGE. PATIENT REQUESTED ENSURE VANILLA SUPPLEMENT. ADDING ENSURE TID. PROVIDES 1050 KCALS, 60 G PROTEIN. PO INTAKE APPEARS TO BE GOOD. RD TO MONITOR WEEKLY.
[2024-10-01 12:28] LABS: HCV Log PCR 3.59 Log IU/mL (NOT DETECTED); HepC Viral Load 3900 IU/mL (NOT DETECTED)
--- NOTE | 2024-10-01 15:07 | P.PNIM_ITS ---
Subjective Subjective Date of Service: 10/01/24 Interval History: ankle cellulitis Review of Systems ankle pain seems improving no fevers Review of Systems: Yes all other systems are reviewed and are negative Physical Exam 2 Exam: Exam: Appearance: Alert.? Oriented X3.? cvs: rrr, [id number] . res: clear to auscultation . abd: no rebound or guarding ,nt, bs present. ext pulses present , no cyanosis . right ankle -wrapped post surgery,patient is movin foot fine neuro: axo3 , nonfocal Vital Signs: Vital Signs: Last Vital Signs Temp 97.2 F 10/01/24 12:00 Pulse 66 10/01/24 12:00 Resp 18 10/01/24 12:00 BP 123/82 10/01/24 12:00 Pulse Ox 97 10/01/24 12:00 O2 Del Method Room Air 10/01/24 12:00 BMI result Body Mass Index 21.8 Objective Data Active Medications Acetaminophen (Acetaminophen 325 Mg Tablet) 650 mg PO Q6H PRN PRN Reason: Pain, Mild 1-3,fever,headache Last Admin: 10/01/24 00:13 Dose: 650 mg Documented By: ELLIOTT Albuterol/Ipratropium (Albuterol/Iprat 2.5/0.5mg 3 Ml Ampul.Neb) 3 ml INHALE Q4H PRN PRN Reason: Shortness of Breath/Wheezing Calcium Carbonate (Calcium Carbonate 750 Mg Tab.Chew) 750 mg PO Q4H PRN PRN Reason: Heartburn Enoxaparin Sodium (Enoxaparin Sodium 40 Mg/0.4 Ml Syringe) 40 mg SUBCUT Q24H [facility] Last Admin: 10/01/24 08:00 Dose: 40 mg Documented By: VICTOR MANUEL Folic Acid (Folic Acid 1 Mg Tablet) 1 mg PO DAILY [facility] Last Admin: 10/01/24 08:00 Dose: 1 mg Documented By: VICTOR MANUEL Piperacillin Sod/Tazobactam (Sod 4.5 gm/ Sodium Chloride) 100 mls @ 200 mls/hr IV Q6H [facility] Last Admin: 10/01/24 14:12 Dose: 100 mls/hr Documented By: VICTOR MANUEL Vancomycin HCl 1,250 mg/ (Sodium Chloride) 250 mls @ 166.667 mls/hr IV Q8H [facility] Last Infusion: 10/01/24 11:31 Dose: Infused Documented By: VICTOR MANUEL Cefazolin Sodium/Dextrose (Ancef) 2 gm in 50 mls @ 100 mls/hr IV POSTOP [facility] Magnesium Hydroxide (Milk Of Magnesia 30 Ml Oral.Susp) 30 ml PO DAILY PRN PRN Reason: Constipation Melatonin (Melatonin 3 Mg Tablet) 6 mg PO BEDTIME PRN PRN Reason: Insomnia Methadone HCl (Methadone Hcl 20 Mg/2 Ml Oral.Conc) 185 mg PO DAILY [facility] Last Admin: 10/01/24 08:01 Dose: 185 mg Documented By: VICTOR MANUEL Co-signed By: CANDIDO Naloxone HCl (Naloxone Hcl 0.4 Mg/Ml Vial) 0.04 mg IVPUSH Q5M PRN PRN Reason: Excessive sedation or RR < 8 Oxycodone HCl (Oxycodone Hcl Immed Release 5 Mg Tablet) 5 mg PO Q6H PRN PRN Reason: Pain, Moderate(Pain Scale 4-6) Last Admin: 10/01/24 14:11 Dose: 5 mg Documented By: VICTOR MANUEL Pharmacy Consult (Consult Rx Vancomycin Dosing) 1 each MISCELLANE DAILY PRN PRN Reason: Consult order Sodium Chloride (0.9 % Sodium Chloride Flush 3 Ml Syringe) 3 ml IVFLUSH QSHIFT [facility] Last Admin: 10/01/24 08:13 Dose: 3 ml Documented By: VICTOR MANUEL Thiamine HCl (Thiamine Hcl 100 Mg Tablet) 100 mg PO DAILY [facility] Last Admin: 10/01/24 08:00 Dose: 100 mg Documented By: VICTOR MANUEL Labs 10/01/24 08:01 10/01/24 08:01 Labs: Laboratory Results - last 24 hr 09/29/24 10/01/24 06:05 08:01 MCV 96.5 MCH 32.4 MCHC 33.5 RDW 12.3 Plt Count 231 MPV 9.3 L Absolute Nucleated RBC 0.000 Nucleated RBC % (auto) 0.0 Anion Gap 9 L Estim Creat Clear Calc 113.4 Estimated GFR > 60 Random Glucose 92 Calcium 8.8 D Vancomycin Trough 16.7 Hep C Viral Load 3900 H Hep C Viral Load Log 3.59 H Microbiology Microbiology Results: Microbiology 09/30/24 11:54 Gram Stain - Final Ankle Aspirate - Aspirate Anaerobic Culture - Preliminary No growth to date. Gross Specimen Examination - Final Fluid Crystals - Final Joint Fluid Culture - Preliminary No growth after 1 day 09/29/24 00:25 Gram Stain - Final Foot - Abscess Routine Culture - Preliminary Culture in progress. 09/29/24 00:16 Blood Culture - Preliminary Blood - Venous No growth after 48 hours. 09/29/24 00:17 Blood Culture - Preliminary Blood - Venous No growth after 48 hours. 09/30/24 11:54 Fluid Crystals - Final Ankle Right Assessment and Plan (1) Cellulitis of foot: Status: Acute Plan 34-year-old male with past medical history substance use disorder on methadone, IV drug abuse, ETOH abuse with history of seizures, hepatitis-C, COVID, recent epididymitis left testicle, presents to the emergency department with complaints of increasing right ankle pain and swelling. Patient was seen yesterday in the emergency department and was sent home on oral antibiotics noting x-rays were negative. Patient required crutches as he was nonweightbearing on the affected extremity. Patient returned today with worsening symptoms including swelling and pain in the affected ankle. Patient is still unable to bear weight. Patient being admitted with cellulitis with evidence of phlegmon versus fluid collection in the affected ankle. Cellulitis right foot/ phlegmon vs fluid collection 2.6X1.9X 1.[address] foot/ abcess right ankle: Lactate 2.2 now 1.6, ESR and CRP elevated, no leukocytosis or fever ,Uric acid level negative s/p i&D of foot abcess Pt will continue ABX, Vanco and now Zosyn to cover anarobes follow fluid and blood cultures ICE, Elevate, pain mgmt-dilaudid less effective for pain pt has been living in the [facility] in a tent denies mosquito bites in affected foot or exposure to tick's - tick panel sent ortho following-leg elevation, pain management, IV antibiotics,NWB RLE - splint in place. Substance use disorder on methadone: Patient takes 180 mg of methadone per day Patient is following with an outpatient clinic History of IV drug abuse clinic helping him with methadone administration Patient deferred need to see addictions during this admission. Patient counseled on the hazards of IV drug abuse. History of alcohol abuse [facility] protocol. Thiamine and folic acid ordered No indication for phenobarbital at this time History of hepatitis-C: Hepatitis-C positive 2021, viral load high Patient has not had primary care in some time, is not sure if he received treatment for hepatitis- repeat RNA testing as patient admits to continuing high-risk behavior, patient will need follow-up in the outpatient setting Homeless with no PCP Case management/social work consult placed Patient is interested in finding a place to live and obtaining a primary care physician BMI is 21(not underweight), patient reports limited access to food, adding ensures 3 times a day DVT prophylaxis: On hold /Orthopedics will check if ok to start Ongoing need of stay:Cellulitis right foot/ phlegmon vs fluid collection 2.6X1.9X 1.[address] foot: Patient need IV antibiotics, cultures pending. Quality Stroke Does the patient have a stroke diagnosis?: No Reason for No Anti-thrombotic by Day Two: N/A - Med Ordered VTE Prior VTE?: No VTE Risk Level:: Medical - moderate - high VTE Device Contraindication: N/A - Device Ordered VTE Drug Contraindication: N/A - Med Ordered
--- NOTE | 2024-10-01 15:51 | MHC.CM.PN ---
pt is not medically ready for dc dc plan tbd
[2024-10-01] MEDS: diazePAM 10 MG/2 ML CARTRIDGE 5 MG IVPUSH (18:50)
[2024-10-01 22:02] LABS: A. Phagocytphilium DNA,RT-PCR NOT DETECTED (NOT DETECTED); Babesia Microti DNA, RT-PCR NOT DETECTED (NOT DETECTED); Borrelia Miyamotoi,DNA RT-PCR NOT DETECTED (NOT DETECTED); E.Chaffeensis DNA RT-PCR NOT DETECTED (NOT DETECTED); Lyme(Borrelia ssp)DNA RT-PCR NOT DETECTED (NOT DETECTED)
[2024-10-02] MEDS: oxyCODONE HCl Immed Release 5 MG TABLET PO ×4 (02:13→22:04)
[2024-10-02 03:24] VITALS: BP 130/88; PULSE 57; RESP 18; TEMP 36.6; O2SAT 98
[2024-10-02 08:00] VITALS: BP 113/85; PULSE 74; RESP 16; TEMP 36.5; O2SAT 99
[2024-10-02 08:33] LABS: Creatinine Clr Calc Pharmacy 109.1; Estimated Glomerular Filt Rate > 60
[2024-10-02] MEDS: methADONE HCl 20 MG/2 ML ORAL.CONC 185 MG PO (08:43)
[2024-10-02] MEDS: 0.9 % Sodium Chloride Flush 3 ML SYRINGE IVFLUSH ×2 (08:47→22:04)
--- NOTE | 2024-10-02 08:49 | HE.PHANOTE ---
Re: Vanco Renal function is decling. Trough returned at 22.0. Dose held, to resume at 1250mg q12h with predicted AUC 459, predicted trough 10.9. Next trough 10/03 1000.
--- NOTE | 2024-10-02 09:56 | HO.PM.IMPN ---
Subjective Subjective Date of Service: 10/02/24 Interval History: Ankle infection, elevated vanco level Review of Systems has still foot pain no fevers Review of Systems: Yes all other systems are reviewed and are negative Physical Exam Exam: Exam: Appearance: Alert.? Oriented X3.? cvs: rrr, [id number] . res: clear to auscultation . abd: no rebound or guarding ,nt, bs present. ext pulses present , no cyanosis . right ankle -wrapped post surgery,patient is movin foot fine. neuro: axo3 , nonfocal Vital Signs: Vital Signs: Last Vital Signs Temp 97.7 F 10/02/24 08:00 Pulse 74 10/02/24 08:00 Resp 16 10/02/24 08:00 BP 113/85 10/02/24 08:00 Pulse Ox 99 10/02/24 08:00 O2 Del Method Room Air 10/02/24 08:00 BMI result Body Mass Index 21.8 Objective Data Active Medications Acetaminophen (Acetaminophen 325 Mg Tablet) 650 mg PO Q6H PRN PRN Reason: Pain, Mild 1-3,fever,headache Last Admin: 10/02/24 00:27 Dose: 650 mg Documented By: SANCHEZ Albuterol/Ipratropium (Albuterol/Iprat 2.5/0.5mg 3 Ml Ampul.Neb) 3 ml INHALE Q4H PRN PRN Reason: Shortness of Breath/Wheezing Calcium Carbonate (Calcium Carbonate 750 Mg Tab.Chew) 750 mg PO Q4H PRN PRN Reason: Heartburn Enoxaparin Sodium (Enoxaparin Sodium 40 Mg/0.4 Ml Syringe) 40 mg SUBCUT Q24H [facility] Last Admin: 10/02/24 08:42 Dose: 40 mg Documented By: VICTOR MANUEL Folic Acid (Folic Acid 1 Mg Tablet) 1 mg PO DAILY [facility] Last Admin: 10/02/24 08:41 Dose: 1 mg Documented By: VICTOR MANUEL Piperacillin Sod/Tazobactam (Sod 4.5 gm/ Sodium Chloride) 100 mls @ 200 mls/hr IV Q6H [facility] Last Infusion: 10/02/24 08:34 Dose: Infused Documented By: VICTOR MANUEL Cefazolin Sodium/Dextrose (Ancef) 2 gm in 50 mls @ 100 mls/hr IV POSTOP [facility] Lorazepam (Lorazepam 1 Mg Tablet) 1 mg PO Q4H PRN PRN Reason: Breakthrough alcohol withdrawa Stop: 10/05/24 23:54 Lorazepam (Lorazepam 1 Mg Tablet) 1 mg PO Q4H [facility]; Taper Stop: 10/06/24 01:59 Last Admin: 10/02/24 06:12 Dose: 1 mg Documented By: SANCHEZ Magnesium Hydroxide (Milk Of Magnesia 30 Ml Oral.Susp) 30 ml PO DAILY PRN PRN Reason: Constipation Melatonin (Melatonin 3 Mg Tablet) 6 mg PO BEDTIME PRN PRN Reason: Insomnia Methadone HCl (Methadone Hcl 20 Mg/2 Ml Oral.Conc) 185 mg PO DAILY [facility] Last Admin: 10/02/24 08:43 Dose: 185 mg Documented By: VICTOR MANUEL Co-signed By: SUJATA Multivitamins/Vitamin C (Multivitamin Tablet) 1 tab PO DAILY [facility] Stop: 10/05/24 08:59 Last Admin: 10/02/24 08:41 Dose: 1 tab Documented By: VICTOR MANUEL Naloxone HCl (Naloxone Hcl 0.4 Mg/Ml Vial) 0.04 mg IVPUSH Q5M PRN PRN Reason: Excessive sedation or RR < 8 Omeprazole (Omeprazole 20 Mg Capsule.Dr) 20 mg PO DAILY@0630 [facility] Last Admin: 10/02/24 06:12 Dose: 20 mg Documented By: SANCHEZ Oxycodone HCl (Oxycodone Hcl Immed Release 5 Mg Tablet) 5 mg PO Q6H PRN PRN Reason: Pain, Moderate(Pain Scale 4-6) Last Admin: 10/02/24 08:41 Dose: 5 mg Documented By: VICTOR MANUEL Pharmacy Consult (Consult Rx Vancomycin Dosing) 1 each MISCELLANE DAILY PRN PRN Reason: Consult order Sodium Chloride (0.9 % Sodium Chloride Flush 3 Ml Syringe) 3 ml IVFLUSH QSHIFT [facility] Last Admin: 10/02/24 08:47 Dose: 3 ml Documented By: VICTOR MANULE Thiamine HCl (Thiamine Hcl 100 Mg Tablet) 100 mg PO DAILY [facility] Last Admin: 10/02/24 08:41 Dose: 100 mg Documented By: VICTOR MANUEL Labs 10/01/24 08:01 10/02/24 08:01 Labs: Laboratory Results - last 24 hr 0710/02/24 10/02/24 06:05 08:01 08:07 Hold Purple Top SEE NOTE Estim Creat Clear Calc 109.1 Estimated GFR > 60 Random Vancomycin 22.0 H A.phagocytophil DNA PCR NOT DETECTED Babesia microti DNA PCR NOT DETECTED Borrelia sp DNA (PCR) NOT DETECTED Borrelia miyamotoi (PCR) NOT DETECTED E.chaffeensis DNA (PCR) NOT DETECTED Hep C Viral Load 3900 H Hep C Viral Load Log 3.59 H Tick-borne Disease PCR SEE NOTE Microbiology Microbiology Results: Microbiology 09/30/24 11:54 Gram Stain - Final Ankle Aspirate - Aspirate Anaerobic Culture - Preliminary No growth to date. Gross Specimen Examination - Final Fluid Crystals - Final Joint Fluid Culture - Final No growth after 2 days 09/29/24 00:25 Gram Stain - Final Foot - Abscess Routine Culture - Preliminary Culture in progress. Assessment and Plan (1) Cellulitis of foot: Status: Acute Plan 34-year-old male with past medical history substance use disorder on methadone, IV drug abuse, ETOH abuse with history of seizures, hepatitis-C, COVID, recent epididymitis left testicle, presents to the emergency department with complaints of increasing right ankle pain and swelling. Patient was seen yesterday in the emergency department and was sent home on oral antibiotics noting x-rays were negative. Patient required crutches as he was nonweightbearing on the affected extremity. Patient returned today with worsening symptoms including swelling and pain in the affected ankle. Patient is still unable to bear weight. Patient being admitted with cellulitis with evidence of phlegmon versus fluid collection in the affected ankle. Cellulitis right foot/ phlegmon vs fluid collection 2.6X1.9X 1.[address] foot/ abcess right ankle: Lactate 2.2 now 1.6, ESR and CRP elevated, no leukocytosis or fever ,Uric acid level negative s/p i&D of foot abcess follow fluid and blood cultures plan: ICE, Elevate, pain mgmt-dilaudid less effective for pain . vanco trough 22,hold Vanco and continue Zosyn to cover anarobes.added ivf since elevated vanco levels , renal function seems fine pt has been living in [place] in [place] tent denies mosquito bites in affected foot or exposure to tick's - tick panel pending ortho following-leg elevation, pain management, IV antibiotics,NWB RLE - splint in place. Substance use disorder on methadone: Patient takes 180 mg of methadone per day Patient is following with an outpatient clinic History of IV drug abuse clinic helping him with methadone administration Patient deferred need to see addictions during this admission. Patient counseled on the hazards of IV drug abuse. History of alcohol abuse [place] protocol. Thiamine and folic acid ordered No indication for phenobarbital at this time History of hepatitis-C: Hepatitis-C positive 2021, viral load high Patient has not had primary care in some time, is not sure if he received treatment for hepatitis- repeat RNA testing as patient admits to continuing high-risk behavior, patient will need follow-up in the outpatient setting Homeless with no PCP Case management/social work consult placed Patient is interested in finding a place to live and obtaining a primary care physician BMI is 21(not underweight), patient reports limited access to food, adding ensures 3 times a day DVT prophylaxis: On hold /Orthopedics will check if ok to start Ongoing need of stay:Cellulitis right foot/ phlegmon vs fluid collection 2.6X1.9X 1.[address] foot: elevated vanco levels /ivf ,moniter renal function/electrolytes ,Id eval pending Quality Stroke Does the patient have a stroke diagnosis?: No Reason for No Anti-thrombotic by Day Two: N/A - Med Ordered VTE Prior VTE?: No VTE Risk Level:: Medical - moderate - high VTE Device Contraindication: N/A - Device Ordered VTE Drug Contraindication: N/A - Med Ordered
[2024-10-02 10:15] LABS: Anion Gap 10 (12-20); Blood Urea Nitrogen 10 mg/dL (9-16); Calcium 9.2 mg/dL (8.4-10.2); Carbon Dioxide 32 mmol/L (22-29); Chloride 101 mmol/L (96-108); Potassium 4.1 mmol/L (3.3-5.1); Sodium 139 mmol/L (135-145)
[2024-10-02] MEDS: Lactated Ringers 1,000 ML 100 ML IVCONT ×2 (10:28→19:30)
--- NOTE | 2024-10-02 15:02 | MHC.CM.PN ---
PER P.T. EVAL, PT WILL NEED STR, PT AWAITING I.D. EVAL FOR? IV ABT RX. REFERRAL PLACED TO [facility] WHO HAS OFFERED A BED PENDING METHADONE GUEST DOSING AND ELDER CARE APPROVAL. MDS COMPLETED AND SENT TO [facility] FOR APPROVAL. ELLIOT FORM SENT TO HOME CLINIC, [facility]. CM WILL CONTINUE TO FOLLOW
[2024-10-02 15:36] VITALS: BP 119/76; PULSE 70; RESP 14; TEMP 36.7; O2SAT 95
--- NOTE | 2024-10-02 17:17 | PM.PNORT ---
Subjective Subjective Date of Service: 10/02/24 Interval history: POD2 s/p right ankle irrigation and debridement Patient is resting in bed comfortably No overnight events Pain is managed No additional complaints Physical Exam Vital Signs: Vital Signs: Last Vital Signs Temp 98.1 F 10/02/24 15:36 Pulse 70 10/02/24 15:36 Resp 14 10/02/24 15:36 BP 119/76 10/02/24 15:36 Pulse Ox 95 10/02/24 15:36 O2 Del Method Room Air 10/02/24 15:36 BMI result Body Mass Index 21.8 Extrem: Other: Right ankle skin intact no open wounds mild swelling no fluctulance he is able to initiate plantar flex and dorsiflex NVI Procedures Date of Service Date of Service: 10/02/24 Progress Note: A&P Assessment and plan (1) IV drug abuse: Status: Acute (2) Methadone maintenance therapy patient: Status: Acute (3) Alcohol dependence: Status: Acute (4) Opioid use disorder: Status: Acute (5) Cellulitis of foot: Status: Acute (6) Cellulitis of right ankle: Status: Acute Plan Continue pain mgmnt Begin p.t. - wbat, rom Elevation on three pillows above heart level Dispo planning-rehab placement Time Spent With Patient Time: Total time managing care of this patient today ____ minutes. Quality Stroke Does the patient have a stroke diagnosis?: No Reason for No Anti-thrombotic by Day Two: N/A - Med Ordered VTE Prior VTE?: No VTE Risk Level:: Medical - moderate - high VTE Device Contraindication: N/A - Device Ordered VTE Drug Contraindication: N/A - Med Ordered
[2024-10-02 19:14] VITALS: BP 141/87; PULSE 81; RESP 18; TEMP 37.1; O2SAT 97
--- NOTE | 2024-10-02 23:30 | P.CNID_ITS ---
History of Present Illness Data of Consult Service Date: 10/02/24 Requesting physician: Ivanna Urbina Primary Care Provider: None Physician HPI Reason for consult: right foot pain ,abscess He presents with right foot pain twice to ER in two days and had been given Cefuroxime and Doxycycline. He stilll has discomfort. He had foot CT abscess 2.6 x 1.9x1.6 cm and was drained by orthopedics. There was no specific growth. He has no leukocytosis Hepatitis C viral load and HIV negative 2018. Review of Systems 2 Review of Systems: Yes all other systems are reviewed and are negative [facility] Past Medical History Medical History IV drug abuse Alcohol dependence Seizures Family History Family history: reviewed and not pertinent Social History Social History Household Members: None Housing: Homeless Do you presently have visiting nurse or other home services: No Alcohol intake: current Comment: counts correct Patient Tobacco Use Status: Never used Tobacco Substance Use Type: IV Drugs and Other service: No Travel History Ebola Risk: Travel/Contact With Anyone From Affected Area/s: No Has Patient Experienced Ebola Symptoms: No Meds Allergies Allergy/AdvReac Type Severity Reaction Status Date / Time No Known Allergies (No Known Allergy Verified 09/28/24 18:17 Allergies*) Active Medications: Current Medications Acetaminophen (Acetaminophen 325 Mg Tablet) 650 mg PO Q6H PRN PRN Reason: Pain, Mild 1-3,fever,headache Last Admin: 10/02/24 19:35 Dose: 650 mg Albuterol/Ipratropium (Albuterol/Iprat 2.5/0.5mg 3 Ml Ampul.Neb) 3 ml INHALE Q4H PRN PRN Reason: Shortness of Breath/Wheezing Calcium Carbonate (Calcium Carbonate 750 Mg Tab.Chew) 750 mg PO Q4H PRN PRN Reason: Heartburn Enoxaparin Sodium (Enoxaparin Sodium 40 Mg/0.4 Ml Syringe) 40 mg SUBCUT Q24H [facility] Last Admin: 10/02/24 08:42 Dose: 40 mg Folic Acid (Folic Acid 1 Mg Tablet) 1 mg PO DAILY [facility] Last Admin: 10/02/24 08:41 Dose: 1 mg Piperacillin Sod/Tazobactam (Sod 4.5 gm/ Sodium Chloride) 100 mls @ 200 mls/hr IV Q6H [facility] Last Infusion: 10/02/24 20:18 Dose: Infused Cefazolin Sodium/Dextrose (Ancef) 2 gm in 50 mls @ 100 mls/hr IV POSTOP [facility] Lactated Ringer's (Lr) 1,000 mls @ 100 mls/hr IVCONT .Q10H [facility] Last Infusion: 10/02/24 20:18 Dose: 100 mls/hr Lorazepam (Lorazepam 1 Mg Tablet) 1 mg PO Q4H PRN PRN Reason: Breakthrough alcohol withdrawa Stop: 10/05/24 23:54 Lorazepam (Lorazepam 1 Mg Tablet) 1 mg PO Q4H [facility]; Taper Stop: 10/06/24 01:59 Last Admin: 10/02/24 22:03 Dose: 1 mg Magnesium Hydroxide (Milk Of Magnesia 30 Ml Oral.Susp) 30 ml PO DAILY PRN PRN Reason: Constipation Melatonin (Melatonin 3 Mg Tablet) 6 mg PO BEDTIME PRN PRN Reason: Insomnia Methadone HCl (Methadone Hcl 20 Mg/2 Ml Oral.Conc) 185 mg PO DAILY [facility] Last Admin: 10/02/24 08:43 Dose: 185 mg Multivitamins/Vitamin C (Multivitamin Tablet) 1 tab PO DAILY [facility] Stop: 10/05/24 08:59 Last Admin: 10/02/24 08:41 Dose: 1 tab Naloxone HCl (Naloxone Hcl 0.4 Mg/Ml Vial) 0.04 mg IVPUSH Q5M PRN PRN Reason: Excessive sedation or RR < 8 Omeprazole (Omeprazole 20 Mg Capsule.Dr) 20 mg PO DAILY@0630 [facility] Last Admin: 10/02/24 06:12 Dose: 20 mg Oxycodone HCl (Oxycodone Hcl Immed Release 5 Mg Tablet) 5 mg PO Q6H PRN PRN Reason: Pain, Moderate(Pain Scale 4-6) Last Admin: 10/02/24 22:04 Dose: 5 mg Pharmacy Consult (Consult Rx Vancomycin Dosing) 1 each MISCELLANE DAILY PRN PRN Reason: Consult order Sodium Chloride (0.9 % Sodium Chloride Flush 3 Ml Syringe) 3 ml IVFLUSH QSHIFT [facility] Last Admin: 10/02/24 22:04 Dose: 3 ml Thiamine HCl (Thiamine Hcl 100 Mg Tablet) 100 mg PO DAILY [facility] Last Admin: 10/02/24 08:41 Dose: 100 mg Home Medications ?Medication ?Instructions ?Recorded ?Confirmed ?Last Taken ?Type methadone 10 mg/mL oral concentrate 185 mg PO DAILY 09/29/24 1 Day Ago History ~09/28/24 185 mg Physical Exam 2 Vital Signs: Vital Signs: Last Vital Signs Temp 98.7 F 10/02/24 19:14 Pulse 81 10/02/24 19:14 Resp 18 10/02/24 19:14 BP 141/87 H 10/02/24 19:14 Pulse Ox 97 10/02/24 19:14 O2 Del Method Room Air 10/02/24 19:14 BMI result Body Mass Index 21.8 Const: General: cooperative HEENT: Head: Yes normal to inspection Face and sinus: Yes normal facial exam Mouth: Normal oral and palatal mucosa present Teeth and gingiva: d entition normal Eyes: General: appearance normal, both eyes and all related structures P upils: Equal, round and reactive pupils present Resp: Effort & Inspection: normal respiratory effort Cardio: Rate: regular rate Rhythm: regular rhythm GI: Palpation (GI): Soft to palpation and nontender : General: Yes no CVA tenderness Back/Spine/Pelvis: Back: no CVA tenderness Skin: General skin exam: no rashes or lesions noted Neuro: General: moves all extremities Cranial nerves: Yes Equal, round and reactive pupils present Extrem: Other: right leg wrapped no leg heat General: Yes normal to inspection Psych: Appearance: grossly normal Results Labs 10/01/24 08:01 10/02/24 08:01 Labs: BMP 10/02/24 08:01 Sodium 139 Potassium 4.1 Chloride 101 Carbon Dioxide 32 H BUN 10 Creatinine 0.81 Calcium 9.2 Microbiology Microbiology Results: Microbiology 09/29/24 00:25 Foot - Abscess Gram Stain - Final 09/29/24 00:25 Foot - Abscess Routine Culture - Final Streptococcus viridans group 09/30/24 11:54 Ankle Aspirate - Aspirate Gram Stain - Final 09/30/24 11:54 Ankle Aspirate - Aspirate Anaerobic Culture - Preliminary No growth to date. 09/30/24 11:54 Ankle Aspirate - Aspirate Gross Specimen Examination - Final 09/30/24 11:54 Ankle Aspirate - Aspirate Fluid Crystals - Final 09/30/24 11:54 Ankle Aspirate - Aspirate Joint Fluid Culture - Final No growth after 2 days 09/29/24 00:16 Blood - Venous Blood Culture - Preliminary No growth after 48 hours. 09/29/24 00:17 Blood - Venous Blood Culture - Preliminary No growth after 48 hours. 09/30/24 11:54 Ankle Right Fluid Crystals - Final Assessment and Plan (1) Alcohol dependence: Status: Acute (2) Methadone maintenance therapy patient: Status: Acute (3) Cellulitis of foot: Status: Acute (4) Cellulitis of right ankle: Status: Acute Plan Would send out on Augmentin and Doxycycline for a week whenever Orthopedics feels appropriate ( no further debridement or surgery pending). He has no fever or leukocytosis and no OM mentioned. Will recheck HIV Treat Hepatitis C outpatient;
[2024-10-03 03:51] VITALS: BP 140/86; PULSE 71; RESP 18; TEMP 37.2; O2SAT 98
[2024-10-03 05:24] LABS: Anion Gap 13 (12-20); Blood Urea Nitrogen 7 mg/dL (9-16); Calcium 9.2 mg/dL (8.4-10.2); Carbon Dioxide 32 mmol/L (22-29); Chloride 102 mmol/L (96-108); Creatinine Clr Calc Pharmacy 116.3; Estimated Glomerular Filt Rate > 60; Potassium 4.3 mmol/L (3.3-5.1); Sodium 143 mmol/L (135-145)
[2024-10-03 05:46] LABS: HIV Num 1 0.18 S/CO (0.00-0.99)
[2024-10-03] MEDS: Lactated Ringers 1,000 ML 100 ML IVCONT (06:01)
[2024-10-03] MEDS: oxyCODONE HCl Immed Release 5 MG TABLET PO (06:13)
[2024-10-03 07:30] VITALS: BP 147/95; PULSE 71; RESP 16; TEMP 36.6; O2SAT 99
[2024-10-03] MEDS: 0.9 % Sodium Chloride Flush 3 ML SYRINGE IVFLUSH (07:33)
[2024-10-03] MEDS: methADONE HCl 20 MG/2 ML ORAL.CONC 185 MG PO (08:13)
--- NOTE | 2024-10-03 15:22 | MHC.RECOVRN ---
Met with pt to discuss discharge planning. Pt stated he eventually wants to seek JEREMIAS treatment at a [facility] program. Discussed peer recovery [facility] and their services such as providing assistance with treatment applications, access to a computer, and a safe environment to engage in recovery. Written materials provided on harm reduction, other local resources and supports, as well as list of treatment facilities for further JEREMIAS treatment. Pt has [facility] team contact info and encouraged to reach out if any questions or concerns arise. No other questions or concerns offered at this time.
[2024-10-03 16:00] VITALS: BP 120/83; PULSE 65; RESP 18; TEMP 36.4; O2SAT 99
--- NOTE | 2024-10-03 16:43 | PM.DS ---
DS: Providers Provider Date of Service: 10/03/24 Date of admission: 09/29/24 01:06 Date of discharge: 10/03/24 Primary care physician: None Physician Consults: 09/29/24 01:57 Consult to Orthopedics Routine Consulting Provider: [facility] Reason for consultation: R ankle effusion, phlegmon Has provider been notified: No 10/01/24 15:08 Consult to Infectious Diseases Routine Consulting Provider: [facility] Reason for consultation: ankle cellulitis/abcess, hepatitis C ,tick serology Has provider been notified: No DS: Diagnosis Discharge Diagnosis (1) Alcohol dependence: Status: Acute (2) Methadone maintenance therapy patient: Status: Acute (3) Cellulitis of foot: Status: Acute (4) Cellulitis of right ankle: Status: Acute DS: Summary Hospital Course Hospital Course: From admission HPI: Date of Service: 09/29/24 Attending physician on admission: Amita Jean Chief Complaint: r ankle swelling Patient is a 34-year-old male with past medical history substance use disorder on methadone, IV drug abuse, ETOH abuse with history of seizures, hepatitis-C, , COVID, corneal abrasion, depression, recent epididymitis left testicle, presents to the emergency department with complaints of increasing right ankle pain and swelling. Patient was seen in the emergency department yesterday and workup was negative for osteomyelitis or sprain/fracture of the involved ankle/foot via Xray, negative for DVT via doppler and clinical examination. Today pt states he was given crutches yesterday because he could no longer bear weight on the affected foot. Patient continues to use crutches and states it is very painful to touch the affected area of the right ankle. Patient states the swelling has increased with noted warmth. Patient denies any fever or chills or nausea or vomiting. Patient denies any chest pain, shortness of breath at rest or with exertion. Patient is not having any headaches or visual changes. Patient denies any diarrhea as well. Patient states he was treated for epididymitis early September and he has healed completely and did complete his antibiotics for that diagnosis. CT of the foot was done in the emergency department in indicates phlegmon versus developing fluid collection measuring 2.6 x 1.9 x 1.6 cm with subcutaneous soft tissues overlying plantar aspect of the calcaneus along the lateral margin which coincides with clinical examination. Patient does have extensive swelling throughout the upper mid ankle area through the heel. There is warmth noted with erythema. The ED provider was able to aspirate cloudy fluid from the affected area. Samples were sent for culture. CRP and sed rate are both elevated. Patient does not have a leukocytosis. Lactic acid 2.2 and after fluids down to 1.6. Patient does not meet the criteria for sepsis at this time. Uric acid level normal. Patient initially started on vancomycin and ceftriaxone. Patient denies using affected foot for IV drug use. Patient only injects IV drugs into the right arm via the antecubital vein. Patient is currently on methadone and following with an outpatient clinic. Patient states he used to use 2-3 bags per day and is now injecting 1-2 times per week. Patient is currently homeless, living in the [facility]. Patient does not walk barefoot. Patient does have obvious mosquito bites that have been scratched but patient denies any bites to the affected foot. Patient will start vancomycin and now Zosyn to cover anaerobes. Patient's last alcoholic drink was an hour prior to coming into the emergency room. Patient denies history of withdrawal. Patient does have history of seizures but he is not sure if it is related to alcohol withdrawal in the past. Patient is not on any antiseizure medication at this time. Patient does not recall having a recent seizure. Patient normally drinks at least 2, 40 oz beers per day. Patient is currently homeless but does hold a full-time job. Patient is worried about losing his job because he can not ambulate. Patient is interested in getting help on finding a place to live. Patient does state he does like to be in nature but he is not able to bathe often and has no access to rest rooms on a regular basis. Patient also does not have a primary care provider and is interested in finding one. Hospital course: Pt was admitted to the hospital for right lower extremity cellulitis concerning for right ankle septic arthritis. Pt underwent uneventful right ankle irrigation and debridement by Orthopedics in the OR on 09/30/2024. Pt was treated with IV antibiotics and seen by infectious disease who recommended discharge on doxycycline and Augmentin. Pt was also seen and evaluated by Orthopedics and PT who recommended weight-bearing as tolerated and current use of either rolling walker or crutches as necessary. Pt did not qualify for STR. Was also seen and evaluated by recovery team who recommended community resources for assistance and treatment options. Pt expressed willingness to eventually seek SUV treatment at a [facility] program. Pt has been hemodynamically stable and does not currently require any further surgical debridement, and is safe to be discharged on p.o. antibiotics at this time. Pt is amenable to discharge plan. Pt will be discharged on doxycycline 100 mg p.o. twice daily and Augmentin 875 mg twice daily to be taken for the next 10 days, set to complete on 10/13/2024. Pt should follow up with Orthopedics at [facility] in 1 week. Time Attestation Discharge Coordination Time (in mins): 35 Quality: Safe Use of Opioids Does Pt have an Active Cancer Diagnosis on the Problem List?: No Quality: Stroke Does the patient have a stroke diagnosis?: No Physical Exam Exam: Exam: General: AOx3, no acute distress Resp: CTA bilaterally CVS: S1, S2, RRR GI: +BS, NT, no distention Skin: Warm, dry Neuro: Cranial nerves II-XII grossly intact bilaterally. Motor grossly intact bilaterally Extremities: Mild right lower extremity swelling and erythema. DP pulses 2+. Clean dressing in place. Psych: Appropriate affect Vital Signs: Vital Signs: Last Vital Signs Temp 97.6 F 10/03/24 16:00 Pulse 65 10/03/24 16:00 Resp 18 10/03/24 16:00 BP 120/83 10/03/24 16:00 Pulse Ox 99 10/03/24 16:00 O2 Del Method Room Air 10/03/24 16:00 BMI result Body Mass Index 21.8 DS: Data Data Completed and Pending Labs on day of discharge: Laboratory Results - last 24 hr 10/03/24 05:02 Hold Purple Top SEE NOTE Sodium 143 Potassium 4.3 Chloride 102 Carbon Dioxide 32 H Anion Gap 13 BUN 7 L Creatinine 0.76 Estim Creat Clear Calc 116.3 Estimated GFR > 60 Random Glucose 138 H Calcium 9.2 Vancomycin Trough 2.8 L HIV 1&2 Ab/P24 Ag 4thGn Nonreactive Preliminary micro results at discharge 09/30/24 11:54 Anaerobic Culture - Preliminary Ankle Aspirate - Aspirate No growth to date. 09/29/24 00:16 Blood Culture - Preliminary Blood - Venous No growth after 48 hours. 09/29/24 00:17 Blood Culture - Preliminary Blood - Venous No growth after 48 hours. Discharge Plan Discharge Anticipated Discharge Date/Time: 10/03/24 18:30 Patient Disposition: Home, Self-Care Discharge Diagnosis: Right ankle septic joint Referrals: Elia Jorge MD [Physician, Orthopedics] - 1 Week Referral Note: F/U for right ankle irrigation and debridement for likely septic arthritis Physician,None [Primary Care Provider, Medical] - 1 Week Discharge Medications: New amoxicillin-pot clavulanate 875-125 mg tablet 1 tab PO Q12H Qty: 20 0RF Rx Instructions: Take one tablet twice a day for the next ten days, set to be completed on 10/13/2024. Take with food and complete whole course of antibiotics. doxycycline monohydrate 100 mg capsule 100 mg PO BID Qty: 20 0RF Rx Instructions: Take one capsule twice a day for the next ten days, set to complete on 10/13/2024 Continued methadone 10 mg/mL Concentrate 185 mg PO DAILY Discharge Orders: Discharge Order (Routine); Ordered 10/03/24 Ordered By: Portillo Earl Activity on Discharge: As tolerated Stand Alone Forms: Patient Portal Discharge page Print Language: Occitan Activity Restrictions/Additional Instructions: DISCHARGE DIAGNOSES: Suspected infection and/or inflammation of the foot HISTORY OF PRESENTATION: ?Foot pain and redness EMERGENCY DEPARTMENT COURSE,TESTS, TREATMENTS: While in the ED today you had an lab work which showed inflammatory reaction in your body you were given pain medications anti-inflammatory medications and antibiotics. DISCHARGE MEDICATIONS: ?We have sent antibiotic and anti-inflammatory medication to the pharmacy FOLLOW-UP: ?Call your primary or general physician soon as possible to discuss your symptoms, your ED visit and to discuss follow up plans Call orthopedics for follow up as you may need further workup of the foot bones INSTRUCTIONS ?& RETURN PRECAUTIONS: If any symptoms change first call your primary physician, if it is after-hours your primary doctors office should have a provider workers compensation paralegal you can speak with. If the symptoms are severe or very concerning to you then call 911 or return to the ED. Salvador Jerome MD Emergency Physician [facility] Care Plan Goals: See below Health Concerns: Septic arthritis of right ankle Polysubstance use Plan of Treatment: You were admitted to the hospital for right lower extremity cellulitis with suspicion for joint infection of the right ankle. You were treated with IV antibiotics and seen by Orthopedics who performed right ankle irrigation and debridement on 09/30/2024. You were seen and evaluated by PT who recommended being discharged with wheeled walker and crutches with weight bearing as tolerated. Take doxycycline 100mg twice a day and Augmentin 875 mg twice a day for the next ten days, set to finish on 10/13/2024. Take with meals and complete whole course of antibiotics. Weight bearing as tolerated. Use walker and/or crutches as necessary, especially for the first few days. Follow up with orthopedics in 1 week to monitor progress Keep foot clean and dry Assessment: See discharge summary Patient Instructions: Cellulitis (ED) Discharge Date/Time: 10/03/24 18:36
--- NOTE | 2024-10-15 08:27 | P.OP_ITS ---
Operative Note Operative Note Date of Service: 09/30/24 Narrative: Date of Service: 09/30/24 Pre-op diagnosis: abcess right ankle Post-op diagnosis: same Procedure: aspiration right ankle incision and drainage right foot abscess Implants: none Surgeon: Elia Jorge MD Anesthesia: GLMA and local Was an School Psychologist used for this Procedure?: Yes School Psychologist: Corinna Story Estimated blood loss (mL): 25 IV fluids (mL): 750 Pathology: other Condition: stable Disposition: PACU Patient was brought to the operating room and placed supine on the surgical table. She was prepped and draped in standard sterile fashion and a time out was called to indentify proper site, proper procedure and IV antibiotics per weight were held until fluid was sent for culture. I began by aspirating the ankle joint anteromedially through the medial soft space. There was normal-appearing joint fluid slightly tinged with blood. This was sent to the lab. There was a fluid collection anterolaterally which was aspirated directly over the area of fluctuance. I aspirated proximally 8 mL of bloody fluid. There was no purulence. I made a small swati incision anteromedially, just anterior to the medial malleolus, and placed a mosquito to open up any area of potential fluctuance. This did not produce any fluid . I repeated this process laterally by making a swati incision just anterior to the lateral malleolus and placed a mosquito to open up the subcutaneous tissues. There was a small pocket here but no purulence was found and there was nothing suspicious. I then irrigated both wounds and closed with nylon. Patient was placed into a sterile dressing and a posterior splint. He was extubated brought to the recovery room in stable condition there were no known complications.
== END 2024-10-03 18:36 | disposition home or self-care (01) | DRG 364 ==
LOC: HO.ED 23:39 → HO.EDOVER 09-29 01:08 → HO.S3 09-29 08:02
PROVIDERS: Internal Medicine; Nurse Practitioner Family; Orthopaedic Surgery; Admitting Provider Student in an Organized Health Care Education/Training Program; Emergency Provider Emergency Medicine; Visit Provider Student in an Organized Health Care Education/Training Program
PROC: 0J9Q0ZZ Drainage of Right Foot Subcutaneous Tissue and Fascia, Open Approach (ICD-10-PCS; principal; 2024-09-30 10:00)
DX: L02.611 Cutaneous abscess of right foot (principal); L03.115 Cellulitis of right lower limb; F11.20 Opioid dependence, uncomplicated; F10.20 Alcohol dependence, uncomplicated; Z59.02 Unsheltered homelessness; Z86.19 Personal history of other infectious and parasitic diseases
CPT/HCPCS: 36415; 73701; 80048; 80053; 80202; 80307; 82565; 83605; 83735; 84550; 85025; 85027; 85652; 86140; 87040; 87070; 87073; 87205; 87389; 87468; 87469; 87478; 87484; 87522; 87798; 89051; 89060; 93971; 97116; 97161; 99285; J0131; J0690; J0696; J1100; J1171; J1596; J1650; J1885; J2003; J2250; J2405; J2543; J2704; J2795; J3010; J3360; J3374; J7120; Q9967

== ENCOUNTER → 2024-09-28 18:19 | Outpatient (BNV) | payer MEDICAID, SELFPAY | PROVIDERS: Visit Provider Radiology Diagnostic Radiology | DX: M79.661 Pain in right lower leg (principal) | CPT/HCPCS: 93971 ==

== ENCOUNTER → 2024-09-29 01:06 | Outpatient (BNV) | payer MEDICAID, SELFPAY | PROVIDERS: Admitting Provider Student in an Organized Health Care Education/Training Program; Emergency Provider Emergency Medicine; Visit Provider Internal Medicine | DX: F10.20 Alcohol dependence, uncomplicated (principal); F11.20 Opioid dependence, uncomplicated; L03.119 Cellulitis of unspecified part of limb; L03.115 Cellulitis of right lower limb | CPT/HCPCS: 99222 ==

== ENCOUNTER → 2024-09-29 01:06 | Outpatient (BNV) | payer MEDICAID, SELFPAY | PROVIDERS: Admitting Provider Student in an Organized Health Care Education/Training Program; Emergency Provider Emergency Medicine; Visit Provider Physician Assistant | DX: F11.90 Opioid use, unspecified, uncomplicated (principal); F10.20 Alcohol dependence, uncomplicated; F11.20 Opioid dependence, uncomplicated; F19.10 Other psychoactive substance abuse, uncomplicated; L03.119 Cellulitis of unspecified part of limb; M00.9 Pyogenic arthritis, unspecified; L03.115 Cellulitis of right lower limb | CPT/HCPCS: 99222 ==

== ENCOUNTER → 2024-09-29 01:06 | Outpatient (BNV) | payer MEDICAID, SELFPAY | PROVIDERS: Admitting Provider Student in an Organized Health Care Education/Training Program; Emergency Provider Emergency Medicine; Visit Provider Nurse Practitioner Family | DX: L03.119 Cellulitis of unspecified part of limb (principal) | CPT/HCPCS: 99223; 99232; 99499 ==

== ENCOUNTER → 2024-09-29 | Outpatient (BNV) | payer MEDICAID, SELFPAY | PROVIDERS: Admitting Provider Student in an Organized Health Care Education/Training Program; Emergency Provider Emergency Medicine; Visit Provider Radiology Diagnostic Radiology | DX: M79.671 Pain in right foot (principal) | CPT/HCPCS: 73701 ==